=== PATIENT | female | born 1965 | race Caucasian/White ===

== ENCOUNTER 2024-02-11 22:51 | Emergency (ER) | payer OTHER, SELFPAY ==
[2024-02-11 22:54] VITALS: BP 156/71; PULSE 83; TEMP 36.6; O2SAT 93; BMI 22.3
--- NOTE | 2024-02-11 23:19 | ED.DENTAL1 ---
HPI - Dental/Oral General Chief complaint: Dental/Oral Stated complaint: Facial Swelling Time Seen by Provider: 02/11/24 22:52 Source: patient Mode of arrival: walk-in History of Present Illness HPI Narrative: 58-year-old female to the emergency department chief complaint of dental pain. Patient reports that she has teeth that are rotting out . Her meat cooler told her that to avoid having a heart attack she needs to be put under anesthesia for dental extractions. She is having hard time finding a dentist who can do this for her. She reports in the interim her teeth have worsened and she is now experiencing left-sided facial swelling associate with an increase in pain and believes she has an infection. Related Data Home Medications ?Medication ?Instructions ?Recorded ?Confirmed albuterol sulfate 2.5 mg/3 mL 2.5 mg continuous nebulization Q6H 02/11/24 02/11/24 (0.083 %) solution for nebulization PRN shortness of breath or wheezing albuterol sulfate 90 mcg/actuation inhalation 02/11/24 aerosol inhaler (Ventolin HFA) alendronate 70 mg tablet 70 mg PO .weekly 02/11/24 02/11/24 amlodipine 10 mg tablet 10 mg PO DAILY 02/11/24 02/11/24 atorvastatin 80 mg tablet 80 mg PO DAILY 02/11/24 02/11/24 azithromycin 250 mg tablet 250 mg PO DAILY 02/11/24 02/11/24 budesonide-formoterol HFA 160 2 inh inhalation Q12H 02/11/24 02/11/24 mcg-4.5 mcg/actuation aerosol inhaler clopidogrel 75 mg tablet 75 mg PO DAILY 02/11/24 02/11/24 famotidine 20 mg tablet 20 mg PO Q12H 02/11/24 02/11/24 gabapentin 100 mg capsule 100 mg PO DAILY 02/11/24 02/11/24 lisinopril 5 mg tablet 5 mg PO DAILY 02/11/24 02/11/24 metoprolol tartrate 25 mg tablet 12.5 mg PO Q12H 02/11/24 02/11/24 roflumilast 500 mcg tablet 500 mcg PO DAILY 02/11/24 02/11/24 spironolactone 25 mg tablet 25 mg PO Q12H 02/11/24 02/11/24 tiotropium bromide 2.5 2 inh inhalation Q24H 02/11/24 02/11/24 mcg/actuation mist for inhalation (Spiriva Respimat) Previous Rx's ?Medication ?Instructions ?Recorded penicillin V potassium 500 mg 500 mg PO QID 7 days #28 tabs 02/11/24 tablet Allergies Allergy/AdvReac Type Severity Reaction Status Date / Time hydrocodone [From Vicodin] Allergy Intermediate Vomiting Verified 02/11/24 23:01 cephalexin [From Keflex] Allergy Mild Vomiting Verified 02/11/24 23:01 sumatriptan [From Imitrex] Allergy Mild Hives Verified 02/11/24 23:01 acetaminophen AdvReac Intermediate Vomiting Verified 02/11/24 23:01 [From Darvocet-N] propoxyphene AdvReac Intermediate Vomiting Verified 02/11/24 23:01 [From Darvocet-N] Review of Systems ROS Status of ROS 10 or more systems reviewed and unremarkable except as noted in history and below [facility] Medical History (Updated 02/11/24 @ 23:16 by Anish Manning MD) Hypertension ?I10 - Essential (primary) hypertension (ICD-10) Heart attack ?I21.9 - Acute myocardial infarction, unspecified (ICD-10) Exam Narrative Exam Narrative: VITALS: I have reviewed the triage vital signs. GENERAL: Well developed, well appearing adult in no acute distress. NEURO: Alert and oriented. Moves all extremities. Face is symmetric and expressive. EYES: PERRL. No scleral icterus or conjunctival injection. No discharge. HENT: Normocephalic, atraumatic. Hearing is grossly intact. Nares grossly patent and without discharge. Mucous membranes moist. Grossly poor dentition. Some gingival erythema about the left incisors and premolars. No discrete abscess. Trace maxillary facial swelling. NECK: No JVD. Patient moves neck without restriction. EXTREMITIES: Symmetric muscle bulk. No joint swelling. No clubbing, cyanosis, or deformity. SKIN: Warm and dry. Normal turgor. No rash or lesions appreciated. PSYCH: Mood, affect, and interaction is appropriate to the setting. Constitutional Vital Signs, click to edit/add: Last Vital Signs Temp 97.9 F 02/11/24 22:54 Pulse 83 02/11/24 22:54 Resp 26 H 02/11/24 22:54 BP 156/71 H 02/11/24 22:54 Pulse Ox 93 L 02/11/24 22:54 O2 Del Method Room Air 02/11/24 22:54 Course Vital Signs Vital signs: Vital Signs Temperature 97.9 F 02/11/24 22:54 Pulse Rate 83 02/11/24 22:54 Respiratory Rate 26 H 02/11/24 22:54 Blood Pressure 156/71 H 02/11/24 22:54 Pulse Oximetry 93 L 02/11/24 22:54 Oxygen Delivery Method Room Air 02/11/24 22:54 Temperature 97.9 F 02/11/24 22:54 Pulse Rate 83 02/11/24 22:54 Respiratory Rate 26 H 02/11/24 22:54 Blood Pressure 156/71 H 02/11/24 22:54 Pulse Oximetry 93 L 02/11/24 22:54 Oxygen Delivery Method Room Air 02/11/24 22:54 MDM - Dental/Oral MDM Narrative Medical decision making narrative: 58-year-old female with poor dentition and suspected dental infection. Vital stable, the patient is afebrile. No evidence of deep space infection. She will be treated with clindamycin. Discussed risks of antibiotics and handout given. She has a list of some dentist whom she is going to call. She is going to use Tylenol and ibuprofen to manage discomfort at home. Return precautions were discussed. All questions were answered. The patient was discharged home. Discharge Plan Discharge Stand Alone Forms: Portal Instructions Chief Complaint: Dental/Oral Clinical Impression: Toothache, Dental abscess Patient Disposition: Home, Self-Care Time of Disposition Decision: 23:15 Condition: Good Mode of Transportation: Private Vehicle Prescriptions / Home Meds: New penicillin V potassium 500 mg tablet 500 mg PO QID 7 Days Qty: 28 0RF No Action albuterol sulfate 2.5 mg /3 mL (0.083 %) solution for nebulization 2.5 mg continuous nebulization Q6H PRN (Reason: shortness of breath or wheezing) albuterol sulfate [Ventolin HFA] 90 mcg/actuation HFA aerosol inhaler INHALATION alendronate 70 mg tablet 70 mg PO .weekly amlodipine 10 mg tablet 10 mg PO DAILY atorvastatin 80 mg tablet 80 mg PO DAILY azithromycin 250 mg tablet 250 mg PO DAILY budesonide-formoterol 160-4.5 mcg/actuation HFA aerosol inhaler 2 inh INHALATION Q12H clopidogrel 75 mg tablet 75 mg PO DAILY famotidine 20 mg tablet 20 mg PO Q12H gabapentin 100 mg capsule 100 mg PO DAILY lisinopril 5 mg tablet 5 mg PO DAILY metoprolol tartrate 25 mg tablet 12.5 mg PO Q12H roflumilast 500 mcg tablet 500 mcg PO DAILY spironolactone 25 mg tablet 25 mg PO Q12H Spiriva Respimat 2.5 mcg/actuation mist 2 inh INHALATION Q24H Print Language: Jamaican Instructions: Clindamycin (By mouth), Dental Abscess (ED), Toothache (ED) Additional Instructions: You need to follow-up with a dentist within the next 7 days Referrals: Maria Teresa Rojo PRINTER HELPER [Primary Care Provider] - 1 week
[2024-02-11] MEDS: PENICILLIN V POTASSIUM 250 MG TABLET 500 MG PO (23:22)
== END 2024-02-11 23:31 | disposition home or self-care (01) ==
PROVIDERS: Emergency Provider Student in an Organized Health Care Education/Training Program; PCP Nurse Practitioner Family
DX: K04.7 Periapical abscess without sinus (principal); K08.89 Other specified disorders of teeth and supporting structures
CPT/HCPCS: 99283

== ENCOUNTER 2024-02-27 22:01 | Emergency (ER) | payer OTHER, SELFPAY ==
[2024-02-27 22:09] VITALS: BP 164/85; PULSE 88; TEMP 36.8; O2SAT 99; BMI 21.5
--- OUTSIDE RECORDS SUMMARY | 2024-02-27 22:09 | XMS_ITS | CCD ---
Author Organization [facility] Care Team Providers Care Home Aid Name Role Phone UNKNOWN, PROVIDER Unavailable Unavailable [facility] Unavailable Unavailable UNKNOWN, PROVIDER Unavailable Unavailable [facility] Unavailable Unavailable Unavailable Unavailable Maria Teresa Chowdhury Unavailable Sg Barroso Unavailable Anderson Espion Unavailable [facility] Primary Care Provider [phone] DO Adal Paris Attending Provider MD Anderson Espino Attending Provider Jigar Klein Unavailable [facility] Primary Care Provider DO Adeline Carlton Attending Provider [phone] MD iKng Olea Referring Provider ELYSE Akins Emergency Provider [phone] DO Earnest Holder Emergency Provider [phone] King Olea II Attending Unavailable Ms. Maria Teresa Chowdhury [facility] Perkins Referring Unava Dr. King Bar Attending Unava Ms. Maria Teresa He Primary Care [facility] Primary Care Provider JODY Olvera Attending Provider JODY Rojo Primary Care Provider JODY Rojo Attending Pr ovider MD Sg Barroso Referring Provider Darrel FIRE PREVENTION OFFICER-BRYAN, Maria Teresa Omalley Primary Care Provider [facility], [facility] Primary Care Provider JODY Olvera Attending Provider JODY Rojo Primary Care Provider JODY Rojo Attending Pr ovider MD Sg Barroso Referring Provider TOMER Klein Attending Provider MD Anderson Espino Attending Provider Unavailable Primary Care Provider Unavailabl e Sg Barroso Referring Unavailable Maria Teresa Rojo Attending U wyattable Darrel, Maria Teresa Omalley Primary Care U navailable Darrel, Maria Teresa Omalley Admitting U navailable Rojo, Maria Teresa Omalley Admitting U navailable Darrel, Maria Teresa Omalley [facility]ending [facility] Maria Teresa Rojo Primary Care U [facility] Jigar Klein Admitting Unavailable Jigar Klein Attending Unavailable Maria Teresa Rojo [facility], [facility] Primary Care Unavailable Anderson Espino Admitting Unavailable Anderson Espino Attending Unavailable Anderson Espino Attending Unavailable Anderson Espino Admitting Unavailable Maria Teresa Rojo [facility] Glen Akins Attending Un[facility], [facility] Primary Care Unavailable Glen Akins Admitting Unavailable Earnest Holder Attending [facility]available [facility] Primary Care Unavailable Earnest Holder Admitting Unavailable [facility], [facility] Primary Care Unavailable Juan Banks Admitting Unavailable Juan Banks Attending Unavailable Maria Teresa Rojo Admitting U navailable Darrel, Maria Teresa Omalley Attending [facility] Maria Teresa Rojo Primary Care U [facility] King Olea Referring Unavail able [facility], [facility] Primary Care Unavailable Adeline Carlton Admitting Unavailable Adeline Carlton Attending Unavailable Alex Olvera Admitting Unavailable Alex Olvera Attending [facility]available [facility] Unavailable Maria Teresa Rojo PA-C Primary Care Provid er Maria Teresa Rojo PA-C Primary Care Provid er Maria Teresa Rojo MD Unavailable [phone] Unavailable Primary Care Provider Unavailreinier Rojo FIRE PREVENTION OFFICER-WORSHIP PASTORMaria Teresa Primary Care Pro vider DANYA NEWSOME Attending Unavailable MARIA TERESA ROJO Primary Care Unavailab KING Perkins Attending Unavailable DANYA NEWSOME Referring Unavailable MARIA TERESA ROJO Primary Care Unavailab ADELINE Nassar Attending Unavailable ADELINE CARLTON Attending Unavailable Allergies Allergy Classification Reported Allergen(s) Allergy Type Date of Onset Reaction(s) Facility (12 sources) Acetaminophen / HYDROcodone; Translations: [Vicodin TABS] Drug Allergy 3 Itching, Nausea/vomiting [facility] PaperG 250 DO Work Phone: (10 sources) Acetaminophen / Propoxyphene; Translations: [Darvocet A500] Drug Allergy Vomiting [facility] PaperG 250 DO Work Phone: (20 sources) Cephalexin; Translations: [Keflex] Drug Allergy 5 GI Upset, Unknown, GI intolerance, Hives, Itching [facility] (20 sources) SUMAtriptan; Translations: [Imitrex] Drug Allergy 5 Hives, Unknown [facility] Paper[facility] 250 DO Work Phone: (6 sources) Acetaminophen / HYDROcodone Drug Allergy Unknown [facility] maufait Other (7 sources) Doxycycline Drug Allergy 4 [facility] (6 sources) Darvocet-N 100 Drug allergy Unknown [facility] maufait Other (12 sources) Cephalexin; Translations: [cephalexin] Drug Allergy 2 [facility] (14 sources) HYDROcodone; Translations: [hydrocodone] Drug Allergy 2 Other [facility] (16 sources) Propoxyphene; Translations: [propoxyphene] Drug Allergy 5 Unknown, GI intolerance, Hives, Headache [facility] (12 sources) SUMAtriptan; Translations: [sumatriptan] Drug Allergy 2 [facility] (3 sources) Propoxyphene N-Acetaminophen; Translations: [PROPOXYPHENE N-ACETAMINOPHEN] Drug Allergy 3 Nausea/vomiting [facility] Work Phone: (6 sources) Acetaminophen / HYDROcodone; Translations: [HYDROCODONE-ACET AMINOPHEN] Drug Allergy 5 Unknown, Itching, GI intolerance [facility] (2 sources) Acetaminophen Drug Allergy 4 Unknown Reaction [facility] (1 source) Doxycycline Drug Allergy 4 [facility] Rep[facility] Medications Current Medications Medication Drug Class(es) Dates Sig (Normalized) Sig (Original) [id number] 200 actuat albuterol 0.09 mg/actuat metered dose inhaler (20 sources) beta2-Adrenergic Agonist Start: 06-29-2023 take 2 puff(s) by inhalation every four hours for wheezing albuterol HFA (Ventolin HFA) 90 mcg/act inhaler Indications: Chronic obstructive pulmonary disease, unspecified COPD type ([facility]/HCC) Inhale 2 puffs every 4 (four) hours if needed for shortness of breath or wheezing. 18 g 5 06/29/2023 Active Start: 02-24-2022 take 2.5 mg by inhal ation every six hours as needed albuterol 2.5 mg /3 mL (0.083 %) nebulizer solution Inhale 3 mL (2.5 mg) every 6 hours if needed for wheezing or shortness of breath. 02/24/2022 Active Start: 02-24-2022 Albuterol Sulf ate (2.5 MG/3ML) 0.083% Inhalation Nebulization Solution USE 1 VIAL EVERY 6 HOURS NEEDED Quantity: 375 Refills: 0 Ordered: 24-Feb-2022 DO Start : 24-Feb-2022 Active Start: 12-14-2021 take 2 puff(s) by in halation every four to six hours for wheezing albuterol (ProAir HFA) 90 mcg/actuation inhaler Inhale 2 puffs if needed for wheezing or shortness of breath. EVERY 4 TO 6 HOURS 12/14/2021 Active Start: 12-14-2021 take 2 puff(s) by mo uth every four to six hours as needed ProAir HFA 108 (90 Base) MCG/ACT AERS TAKE 2 PUFFS BY MOUTH EVERY 4 TO 6 HOURS NEEDED Quantity: 8 Refills: 0 Ordered: 14-Dec-2021 DO Start : 14-Dec-2021 Active Start: 02-11-2021 take 2.5 mg by inhal ation every four hours Albuterol Sulfate Active 2.5 MG INHALATION Every 4 hours February 11, 2021 12:00am Start: 01-27-2021 take 1 puff(s) by in halation every four hours as needed Albuterol Sulfate HFA 108 (90 Base) MCG/ACT 1 puff as needed Inhalation every 4 hrs Jan, Active Albuterol Sulfat e (2.5 MG/3ML) 0.083% 1 unit dose Inhalation four times a day DX J44.9 COPD Not-Taking take 1 puff(s) by in halation every four hours as needed Albuterol Sulfate HFA 108 (90 Base) MCG/ACT 1 puff as needed Inhalation every 4 hrs Active alendronic acid 70 mg oral tablet (20 sources) Bisphosphonate Start: 07-15-2021 take 70 mg by mouth every week Alendronate Active 70 MG PO every week July 15, 2021 1:00am Takes every Monday End: 10-05-2023 alendronate (Fosamax) 70 MG tablet Take 70 mg by mouth every 7 (seven) days. 0 10/05/2023 Discontinued (Other) take 1 tablet by saloni th once daily Alendronate Sodium 70 MG 1 tablet 30 minutes before the first food, beverage or medicine of the day with plain water Orally Active amLODIPine 10 mg oral tablet (20 sources) Dihydropyridine Calcium Channel Windy Start: 07-16-2021 End: 12-25-2024 take 1 tablet by mouth once daily amLODIPine (Norvasc) 10 mg tablet Indications: Essential hypertension Take 1 tablet (10 mg) by mouth once daily. FOR BLOOD PRESSURE. 90 tablet 3 12/26/2023 12/25/2024 Active Start: 02-11-2021 End: 10-05-2023 take 5 mg by mouth once daily Amlodipine Active 5 MG P O Daily July 16, 2021 1:00am atorvastatin 80 mg oral tablet (20 sources) HMG-CoA Reductase Inhibitor Start: 06-05-2017 End: 12-25-2024 take 1 tablet by mouth once daily at bedtime atorvastatin (Lipitor) 80 mg tablet Indications: Mixed hyperlipidemia Take 1 tablet (80 mg) by mouth once daily at bedtime. 90 tablet 3 12/26/2023 12/25/2024 Active azithromycin 250 mg oral tablet (8 sources) Macrolide Antimicrobial Start: 04-21-2023 take 1 tablet by mouth in the morning azithromycin (Zithromax) 250 MG tablet Indications: Chronic obstructive pulmonary disease, unspecified COPD type (CMS/HCC) Take 1 tablet (250 mg) by mouth in the morning. 30 tablet 5 04/21/2023 Active Azithromycin 250 MG as directed Orally once a day Active 60 actuat budesonide 0.16 mg/actuat / formoterol fumarate 0.0045 mg/actuat metered dose inhaler (20 sources) Corticosteroid, beta2-Adrenergic Agonist Start: 04-21-2023 End: 10-05-2023 budesonide-formoterol (Symbicort) 160-4.5 MCG/ACT inhaler Indications: Chronic obstructive pulmonary disease, unspecified COPD type (CMS/HCC) Inhale 2 puffs every 12 (twelve) hours 1 each 5 10/05/2023 Active Start: 12-17-2021 budesonide-for moteroL (Symbicort) 160-4.5 mcg/actuation inhaler Inhale. 12/17/2021 Active Start: 12-17-2021 budesonide-for moteroL (Symbicort) 160-4.5 mcg/actuation inhaler Inhale. 0 12/17/2021 Active Start: 12-17-2021 Symbicort 160- 4.5 MCG/ACT Inhalation Aerosol Quantity: 10 Refills: 0 Ordered: 17-Dec-2021 DO Start : 17-Dec-2021 Active Start: 02-11-2021 End: 07-15-2021 take 1 puff(s) by inhalation every twelve hours Budesonide-Formoterol (Symbicort) 160-4.5 mcg/actuation Hfa Aerosol Inhaler Discontinued 2 PUFF INHALATION Q12H February 11, 2021 12:00am July 15, 2021 2:14pm take 2 puff(s) by in halation twice daily Budesonide-Formoterol Fumarate 160-4.5 MCG/ACT 2 puffs Inhalation Twice a day Active calcium carbonate 1250 mg / cholecalciferol 600 unt oral tablet (5 sources) Vitamin D Start: 04-28-2023 Calcium 500 + D3 500-15 MG-MCG tablet cholecalciferol 0.05 mg oral capsule (6 sources) Vitamin D Start: 12-14-2021 take 1 capsule by mouth in the morning cholecalciferol (Vitamin D-3) 50 mcg (2,000 unit) capsule Take 1 capsule (50 mcg) by mouth early in the morning.. 12/14/2021 Active Start: 12-14-2021 take 1 capsule by mo uth in the morning cholecalciferol (Vitamin D-3) 50 mcg (2,000 unit) capsule Take 1 capsule (2,000 Units) by mouth early in the morning.. 0 12/14/2021 Active Start: 12-14-2021 take 1 capsule by mo uth once daily Vitamin D3 50 MCG (2000 UT) Oral Capsule TAKE 1 CAPSULE BY MOUTH EVERY DAY Quantity: 30 Refills: 0 Ordered: 14-Dec-2021 DO Start : 14-Dec-2021 Active clopidogrel 75 mg oral tablet (20 sources) P2Y12 Platelet Inhibitor Start: 06-05-2017 End: 12-25-2024 take 1 tablet by mouth once daily clopidogrel (Plavix) 75 mg tablet Indications: Atherosclerosis of rincon coronary artery of rincon heart without angina pectoris , Mixed hyperlipidemia Take 1 tablet (75 mg) by mouth once daily. 90 tablet 3 12/26/2023 12/25/2024 Active codeine phosphate 2 mg/ml / guaiFENesin 20 mg/ml oral solution (3 sources) Opioid Agonist Start: 10-05-2023 End: 10-10-2023 take 5 mL by mouth every six hours as needed for cough and chronic obstructive pulmonary disease and chronic obstructive pulmonary disease guaiFENesin-codeine (Robitussin-AC) 100-10 MG/5ML syrup Indications: Chronic obstructive pulmonary disease, unspecified COPD type (CMS/HCC) Take 5 mL by mouth every 6 (six) hours if needed for cough for up to 5 days 200 mL 0 10/05/2023 10/10/2023 Active esomeprazole 40 mg delayed release oral capsule (20 sources) Proton Pump Inhibitor Start: 08-11-2023 take 40 mg by mouth once daily Esomeprazole Magnesium Active 40 MG PO Daily August 11, 2023 1:00am Start: 07-15-2021 End: 08-11-2023 take 1 capsule by mouth once daily Esomeprazole Magnesium (Nexium) 20 mg Capsule,Delayed Release(Dr/Ec) Discontinued 20 MG PO Daily July 15, 2021 1:00am August 11, 2023 11:55am take 2 capsules by m outh once daily esomeprazole (NexIUM) [address] capsule Take 2 capsules (40 mg) by mouth once daily. Active esomeprazole (Ne xIUM) 40 MG injection Infuse 40 mg into a venous catheter in the morning. Infuse before meals. 0 Active famotidine 20 mg oral tablet (20 sources) Histamine-2 Receptor Antagonist Start: 10-25-2023 take 1 tablet by mouth once daily at bedtime Famotidine Active 20 MG PO Daily at bedtime October 25, 2023 1:00am Take 1 tablet orally at bedtime. Start: 09-20-2023 End: 10-05-2023 take 1 tablet by mouth in the morning famotidine (Pepcid) 20 MG tablet Take 20 mg by mouth in the morning. 0 09/20/2023 10/05/2023 Discontinued Start: 06-27-2023 End: 10-05-2023 famotidine (Pepcid) 40 MG ta blet Start: 02-11-2021 End: 07-15-2021 take 20 mg by mouth once daily Famotidine Discontinued 20 MG PO Daily February 11, 2021 12:00am July 15, 2021 2:15pm Start: 11-19-2020 End: 06-26-2023 take 1 tablet by mouth twice daily famotidine (Pepcid) 20 mg tablet Take 1 tablet (20 mg) by mouth 2 times a day. 0 08/25/2021 06/26/2023 Discontinued (Therapy completed) gabapentin 100 mg oral capsule (5 sources) Anti-epileptic Agent Start: 10-05-2023 End: 10-04-2024 take 100 mg by mouth once daily Gabapentin Active 100 MG PO Daily December 18, 2023 12:00am hydroCHLOROthiazide 12.5 mg oral tablet (5 sources) Thiazide Diuretic take 1 tablet by mouth in the morning hydroCHLOROthiazide (HYDRODiuril) 12.5 MG tablet Take 12.5 mg by mouth in the morning. 0 Active hyoscyamine sulfate 0.125 mg disintegrating oral tablet (6 sources) Start: 12-18-2023 take 0.125 mg by mouth three times daily Hyoscyamine Sulfate Active 0.125 MG PO Three times daily 90 December 18, 2023 12:00am hyoscyamine (Stella spaz,Levsin) 0.125 MG tablet every 4 (four) hours. 0 Active lisinopril 5 mg oral tablet (20 sources) Angiotensin Converting Enzyme Inhibitor Start: 12-26-2023 End: 12-25-2024 take 1 tablet by mouth once daily lisinopril 5 mg tablet Indications: Essential hypertension Take 1 tablet (5 mg) by mouth once daily. 90 tablet 3 12/26/2023 12/25/2024 Active Start: 10-26-2022 End: 10-24-2023 take 5 mg by mouth once daily Lisinopril Discontinued 5 MG PO Daily October 26, 2022 1:00am October 24, 2023 3:26pm Start: 07-15-2021 End: 07-16-2021 take 20 mg by mouth once daily Lisinopril Discontinued 20 MG PO Daily July 15, 2021 1:00am July 16, 2021 3:39pm Start: 07-24-2017 End: 12-26-2023 take 5 mg by mouth once daily Lisinopril Discontinued 5 MG PO Daily July 16, 2021 1:00am February 03, 2022 11:49am take 1 tablet by saloni th every twelve hours Lisinopril 20 MG 1 tablet Orally TWICE A DAY Active metoprolol tartrate 25 mg oral tablet (20 sources) beta-Adrenergic Windy Start: 12-26-2023 End: 12-25-2024 take 0.5 tablet by mouth twice daily metoprolol tartrate (Lopressor) 25 mg tablet Indications: Atherosclerosis of rincon coronary artery of rincon heart without angina pectoris , Essential hypertension Take 0.5 tablets (12.5 mg) by mouth 2 times a day. 90 tablet 3 12/26/2023 12/25/2024 Active Start: 06-05-2017 take 12.5 mg by mout h twice daily Metoprolol Tartrate Active 12.5 MG PO Twice daily June 05, 2017 12:00am take 1 tablet by saloni th every twelve hours metoprolol tartrate (Lopressor) 25 MG tablet Take 25 mg by mouth every 12 (twelve) hours. 0 Active pantoprazole 40 mg delayed release oral tablet (12 sources) Proton Pump Inhibitor Start: 12-21-2021 End: 10-05-2023 take 1 tablet by mouth once daily pantoprazole (ProtoNix) 40 mg EC tablet Take 1 tablet (40 mg) by mouth once daily. 12/21/2021 Active predniSONE 50 mg oral tablet (17 sources) Start: 02-26-2023 take 50 mg by mouth once daily Prednisone Active 50 MG PO Daily 5 February 26, 2023 12:00am Start: 02-03-2022 End: 10-26-2022 Prednisone Discontinued 10 M G PO Daily February 03, 2022 12:00am October 26, 2022 12:06pm starting 02/04/22 -4tab x3day, then 2tab x3day, then 1tab x3day, then discontinue roflumilast 0.5 mg oral tablet (13 sources) Phosphodiesterase 4 Inhibitor Start: 08-19-2022 End: 06-26-2023 take 1 tablet by mouth once daily Roflumilast (Daliresp) 500 MCG tablet Indications: Chronic obstructive pulmonary disease, unspecified COPD type (CMS/HCC) Take 500 mcg by mouth 1 (one) time each day at the same time. 30 tablet 5 04/21/2023 Active Start: 02-24-2022 End: 06-26-2023 take 1 tablet by mouth once daily roflumilast (Daliresp) 250 mcg tablet Take 1 tablet (250 mcg) by mouth once daily. FOR 30 DAYS 0 02/24/2022 06/26/2023 Discontinued (Duplicate order) take 1 tablet by saloni th every twenty-four hours Roflumilast 500 MCG 1 tablet Orally Once a day Not-Taking Spiriva Respimat 2.5 mcg/actuation (6 sources) Spiriva Respimat 2.5 mcg/actuation 2 puffs daily Active spironolactone 25 mg oral tablet (20 sources) Aldosterone Antagonist Start: 12-05-19 take 1 tablet by mouth in the morning spironolactone (Aldactone) 25 mg tablet Take 1 tablet (25 mg) by mouth early in the morning.. 12/04/2021 Active Start: 07-15-2021 End: 07-16-2021 take 25 mg by mouth twice daily Spironolactone Discontinued 25 MG PO Twice daily July 15, 2021 1:00am July 16, 2021 3:39pm take 2 tablets by mo uth every twenty-four hours Spironolactone 25 MG 2 ml Orally Once a day for 90 day(s) Active 60 actuat tiotropium 0.0025 mg/actuat inhalation spray (20 sources) Anticholinergic Start: 12-18-2023 take 2 puff(s) by inhalation once daily Tiotropium Rawlings Active INHALATION December 18, 2023 12:00am FreeTextSi puffs daily; Note: Source Status: Taking; Provider: Latoya Kimball ( ) Start: 04-21-2023 End: 10-05-2023 take 2 puff(s) by inhalation once daily tiotropium (Spiriva Respimat) 2.5 MCG/ACT inhaler Indications: Chronic obstructive pulmonary disease, unspecified COPD type ([facility]/HCC) Inhale 2 puffs 1 (one) time each day at the same time 1 each 5 10/05/2023 Active Start: 10-22-2021 End: 06-26-2023 take 2 puff(s) by inhalation once daily tiotropium (Spiriva Respimat) 2.5 mcg/actuation inhaler Inhale 2 puffs once daily. FOR 30 DAYS 0 10/22/2021 06/26/2023 Discontinued (Therapy completed) Start: 10-22-2021 take 2 puff(s) by in halation once daily Spiriva Respimat 2.5 MCG/ACT Inhalation Aerosol Solution INHALE 2 PUFFS INTO THE LUNGS EVERY DAY FOR 30 DAYS Quantity: 4 Refills: 0 Ordered: 24-Dec-2021 DO Start : 22-Oct-2021 Active Start: 02-11-2021 take 1 capsule by in halation once daily tiotropium (Spiriva with HandiHaler) [address] 1 capsule (18 mcg) into inhaler and inhale once daily. USING 2 INHALATIONS VIA HANDIHALER 08/24/2021 Active Tiotropium Rawlings (Spiriva With Handihaler) 18 mcg capsule, w/inhalation device (3 sources) Start: 02-11-2021 take 1 capsule by inhalation once daily in the morning Tiotropium Rawlings (Spiriva With Handihaler) 18 mcg capsule, w/inhalation device Active 1 CAP INHALATION Every morning February 11, 2021 12:00am Start: 02-11-2021 take 1 capsule by in halation once daily in the morning Tiotropium Rawlings (Spiriva With Handihaler) 18 mcg capsule, w/inhalation device Active 1 CAP INHALATION Every morning February 10, 2021 11:00pm Completed/Discontinued Medications Medication Drug Class(es) Dates Sig (Normalized) Sig (Original) acetaminophen 500 mg oral tablet (20 sources) Start: 09-25-2018 End: 02-11-2021 take 500 mg by mouth every six hours Acetaminophen Discontinued 500 MG PO Q6H September 25, 2018 1:00am February 11, 2021 9:01pm Start: 07-24-2017 End: 01-16-2018 Acetaminophen (Tylenol) 325 mg Tablet Discontinued 325 TAB PO As Directed July 24, 2017 1:00am January 16, 2018 8:11pm acetaminophen 300 mg / codeine phosphate 15 mg oral tablet (20 sources) Opioid Agonist Start: 09-15-2017 End: 09-20-2017 take 1 tablet by mouth every six hours Acetaminophen-Codeine Discontinued 1 TAB PO Q6H 14 01September 15, 2017 1:00am September 20, 2017 1:03am Start: 06-05-2017 End: 07-08-2017 take 1 tablet by mouth every four to six hours Acetaminophen-Codeine (Tylenol-Codeine #3) 300-30 mg tablet Discontinued 1 TAB PO EVERY 4-6 HOURS June 05, 2017 12:00am July 08, 2017 10:55pm acetaminophen 325 mg / oxyCODONE hydrochloride 5 mg oral tablet (20 sources) Opioid Agonist Start: 09-17-2017 End: 01-16-2018 take 1 tablet by mouth every four to six hours Oxycodone-Acetaminophen (Percocet) 5-325 mg tablet Discontinued 1 TAB PO EVERY 4-6 HOURS November 23, 2017 January 16, 2018 8:11pm aspirin 81 mg delayed release oral tablet (20 sources) Platelet Aggregation Inhibitor, Nonsteroidal Anti-inflammator y Drug Start: 06-05-2017 End: 12-26-2023 take 81 mg by mouth once daily Aspirin Discontinued 81 MG PO Daily July 15, 2021 1:00am August 11, 2023 11:22am ASPIRIN 81 MG ch ewable tablet Chew 81 mg 1 (one) time each day at the same time. 0 Active atenolol 25 mg oral tablet (4 sources) beta-Adrenergic Windy End: 10-05-2023 take 1 tablet by mouth in the morning atenolol (Tenormin) 25 MG tablet Take 25 mg by mouth in the morning. 0 10/05/2023 Discontinued (Other) benzonatate 100 mg oral capsule (12 sources) Non-narcotic Antitussive Start: 07-15-2021 End: 10-26-2022 take 100 mg by mouth three times daily Benzonatate Discontinued 100 MG PO Three times daily July 15, 2021 1:00am October 26, 2022 12:05pm 12 hr buPROPion hydrochloride 150 mg extended release oral tablet (4 sources) Aminoketone Start: 09-04-2022 End: 10-05-2023 buPROPion SR (Wellbutrin SR) 150 MG 12 hr tablet TAKE 1 TABLET BY ONCE DAILY FOR 5 DAYS THEN INCREASE TO TWICE DAILY, QUIT SMOKING DAY 10 0 09/04/2022 10/05/2023 Discontinued (Other) Calcium 500/Vitamin D 500-3.125 MG-MCG (2 sources) take 1 tablet by mouth twice daily Calcium 500/Vitamin D 500-3.125 MG-MCG 1 tablet with a meal Orally TWICE A DAY Not-Taking take 1 tablet by mouth twice denisa ly Calcium 500/Vitamin D 500-3.125 MG-MCG 1 tablet with a meal Orally TWICE A DAY Active clindamycin 150 mg oral capsule (2 sources) Lincosamide Antibacterial take 1 capsule by mouth every eight hours Clindamycin HCl 150 MG 1 capsule Orally every 8 hrs Not-Taking dicyclomine hydrochloride 20 mg oral tablet (4 sources) Anticholinergic Start: 10-24-19 End: 12-18-19 take 1 tablet by mouth twice daily Dicyclomine Discontinued MG PO October 24, 2023 1:00am December 18, 2023 1:44pm FreeTextSi tablet Orally Twice a times a day; Note: Source Status: Start; Refills: 5; Provider: Latoya Crocker Start: 09-20-2023 dicyclomine (B entyl) 20 MG tablet Take 20 mg by mouth in the morning and 20 mg at noon and 20 mg in the evening and 20 mg before bedtime. Take before meals. 0 09/20/2023 Active doxycycline hyclate 100 mg oral capsule (17 sources) Tetracycline-class Drug Start: 02-26-2023 End: 08-11-2023 take 100 mg by mouth twice daily Doxycycline Hyclate Discontinued 100 MG PO Twice daily 14 February 26, 2023 12:00am August 11, 2023 11:23am Start: 02-03-2022 End: 10-26-2022 take 100 mg by mouth twice daily Doxycycline Hyclate Discontinued 100 MG PO Twice daily February 03, 2022 12:00am October 26, 2022 12:05pm guaiFENesin 600 mg oral tablet (20 sources) Start: 07-16-2021 End: 02-03-2022 take 600 mg by mouth twice daily Guaifenesin Discontinued 600 MG PO Twice daily July 16, 2021 1:00am February 03, 2022 11:48am Start: 07-15-2021 End: 12-18-2023 take 1 tablet by mouth twice daily, then take 1 tablet by mouth every twelve hours Guaifenesin (Mucinex) 1,200 mg Tablet Extended Release 12hr Discontinued 1200 MG PO Twice daily July 15, 2021 1:00am December 18, 2023 1:45pm End: 10-05-2023 guaiFENesin (Mucinex) 600 MG 12 hr tablet Take 600 mg by mouth every 12 (twelve) hours. 0 10/05/2023 Discontinued (Other) take 2 tablets by mo [facility] every twelve hours Mucinex 600 MG 2 TABLETS Orally every 12 hrs Not-Taking take 1 tablet by saloni every twelve hours Mucinex 600 MG 1 tablet as needed Orally every 12 hrs Active lovastatin 20 mg oral tablet (4 sources) HMG-CoA Reductase Inhibitor End: 10-05-2023 take 1 tablet by mouth at bedtime lovastatin (Mevacor) 20 MG tablet Take 20 mg by mouth at bedtime. 0 10/05/2023 Discontinued (Other) magnesium oxide 400 mg oral tablet (14 sources) Start: 10-26-2022 End: 10-05-2023 take 400 mg by mouth once daily Magnesium Oxide Discontinued 400 MG PO Daily October 26, 2022 1:00am August 11, 2023 11:22am take 1 tablet by [facility] once daily at mealtime Magnesium Oxide 400 (240 Mg) MG TAKE 1 TABLET BY MOUTH ONCE DAILY WITH FOOD for 30 Not-Taking MagOx 400 400 (241.3 Mg) MG (2 sources) Start: 09-15-2022 take 1 tablet by mouth once daily at mealtime MagOx 400 400 (241.3 Mg) MG 1 tablet with food Orally Once a day for 30 day(s) Aug, Not-Taking Start: 09-15-2022 take 1 tablet by [facility] once daily at mealtime MagOx 400 400 (241.3 Mg) MG 1 tablet with food Orally Once a day for 30 day(s) Aug, Active montelukast 10 mg oral tablet (20 sources) Leukotriene Receptor Antagonist Start: 02-11-2021 End: 12-26-2023 take 1 tablet by mouth once daily in the evening montelukast (Singulair) 10 mg tablet Take 1 tablet (10 mg) by mouth once daily in the evening. 09/03/2021 12/26/2023 Discontinued (Therapy completed) Nitro Sublingual 0.4 0.4mg (6 sources) Nitro Sublingual 0.4 0.4mg 1 Sublingual Every 5min x3 Not-Taking Nitro Sublingual 0.4 0.4mg 1 Sublingual Every 5min x3 Active nitroglycerin 0.4 mg sublingual tablet (6 sources) Nitrate Vasodilator End: 12-26-2023 nitroglycerin (Nitrostat) 0.[address] 1 tablet (0.4 mg) under the tongue every 5 minutes if needed for chest pain. 12/26/2023 Discontinued () omeprazole 40 mg delayed release oral capsule (14 sources) Proton Pump Inhibitor Start: 05-18-2023 End: 10-05-2023 omeprazole (PriLOSEC) [address] capsule Start: 07-25-2017 End: 01-16-2018 Omeprazole Magnesium (Prilos ec Otc) 20 mg Tablet,Delayed Release (Dr/Ec) Discontinued 40 MG PO Daily July 25, 2017 1:00am January 16, 2018 8:11pm ondansetron 4 mg disintegrating oral tablet (15 sources) Serotonin-3 Receptor Antagonist Start: 09-17-2017 End: 01-16-2018 take 4 mg by mouth every eight hours Ondansetron Discontinued 4 MG PO Q8H September 17, 2017 1:00am January 16, 2018 8:11pm ondansetron (Zof ran) 8 MG tablet 1 tablet 0 Active potassium chloride 20 meq extended release oral tablet (20 sources) Start: 09-15-2022 take 1 tablet by saloni th every twenty-four hours Potassium Chloride ER 20 MEQ 1 tablet with food Orally Once a day for 30 day(s) Aug, Not-Taking Start: 08-05-2022 End: 10-05-2023 potassium chloride ER (Micro -K) 10 MEQ ER capsule TAKE 2 CAPSULES BY MOUTH EVERY DAY WITH FOOD 0 08/05/2022 10/05/2023 Discontinued (Other) Start: 06-30-2020 End: 02-03-2022 take 10 mEq by mouth once daily Potassium Chloride Discontinued 10 MEQ PO Daily July 15, 2021 1:00am February 03, 2022 11:49am promethazine hydrochloride 25 mg oral tablet (10 sources) Phenothiazine Start: 09-15-2017 End: 09-18-2017 take 25 mg by mouth every six hours Promethazine Discontinued 25 MG PO Q6H 12 September 15, 2017 1:00am September 18, 2017 1:03am raNITIdine 150 mg oral tablet (14 sources) Histamine-2 Receptor Antagonist Start: 06-05-2017 End: 10-05-2023 take 150 mg by mouth once daily at bedtime Ranitidine Hcl Discontinued 150 MG PO Daily at bedtime June 05, 2017 12:00am July 15, 2021 2:14pm Start: 06-05-2017 End: 07-15-2021 take 150 mg by mouth once daily at bedtime Ranitidine Hcl Discontinued 150 MG PO Daily at bedtime June 04, 2017 11:00pm July 15, 2021 1:14pm sodium bicarbonate 650 mg oral tablet (12 sources) Start: 01-31-2022 End: 10-26-2022 take 1300 mg by mouth three times daily Sodium Bicarbonate Discontinued 1300 MG PO Three times daily 180 January 31, 2022 12:00am October 26, 2022 12:06pm take 1 tablet by saloni th every twelve hours Sodium Bicarbonate 650 MG 1 tab(s) Orall y bid Active Tylenol Extra Strength 500 MG (6 sources) take 1 tablet by saloni th every six hours as needed Tylenol Extra Strength 500 MG 1 tablet as needed Orally every 6 hrs Not-Taking take 1 tablet by saloni th every six hours as needed Tylenol Extra Strength 500 MG 1 tablet a s needed Orally every 6 hrs Active vitamin b12 1 mg oral tablet (14 sources) Vitamin B12 Start: 02-03-2022 End: 10-26-2022 take 1000 ug by mouth once daily in the morning Cyanocobalamin (Vitamin B-12) Discontinued 1000 MCG PO Every morning 3 February 03, 2022 12:00am October 26, 2022 12:05pm take 1 tablet by mouth once janak y Cyanocobalamin 1000 MCG 1 tablet Orally Once a day Not-Taking take 1 tablet by mouth once janak y Cyanocobalamin 1000 MCG 1 tablet Orally Once a day Active Problems Active Problems Problem Classification Problem Date Documented Da te Episodic/Chronic Abdominal pain (20 sources) Epigastric pain; Translations: [Epigastric pain] Onset: 3 Resolved: 4 07-14-2021 Episodic Acute and unspecified renal failure (20 sources) Acute renal failure syndrome; Translations: [Acute kidney failure, unspecified] Onset: 4 Resolved: 4 07-15-2021 Episodic Asthma (17 sources) Asthma; Translations: [Asthma, unspecified type, unspecified] Onset: 3 Resolved: 3 06-24-2023 Chronic Chronic kidney disease (3 sources) Chronic kidney disease stage 3A ; Translations: [Chronic kidney disease, stage 3a] Chronic Chronic obstructive pulmonary disease and bronchiectasis (20 sources) Chronic obstructive lung disease; Translations: [Chronic airway obstruction, not elsewhere classified] Onset: 2 Resolved: 2 Chronic Coronary atherosclerosis and other heart disease (20 sources) Coronary atherosclerosis; Translations: [Coronary atherosclerosis of rincon coronary artery] Onset: 3 Resolved: 3 06-26-2023 Chronic Coronary atherosclerosis and other heart disease (2 sources) Coronary angioplasty status; Translations: [Coronary angioplasty status] Onset: 3 Episodic Coronary atherosclerosis and other heart disease (1 source) Coronary atherosclerosis and other heart disease Onset: 7 Deficiency and other anemia (20 sources) Pancytopenia; Translations: [Other pancytopenia] Onset: 4 Resolved: 4 07-14-2021 Chronic Deficiency and other anemia (13 sources) Anemia; Translations: [Anemia, unspecified] Onset: 4 Resolved: 4 07-14-2021 Episodic Disorders of lipid metabolism (20 sources) Hyperlipidemia; Translations: [Other and unspecified hyperlipidemia] Onset: 3 Resolved: 3 06-26-2023 Chronic Esophageal disorders (10 sources) Gastroesophageal reflux disease; Translations: [Gastro-esophageal reflux disease without esophagitis] Onset: 2 Resolved: 2 Chronic Essential hypertension (20 sources) Essential (primary) hypertension; Translations: [Essential hypertension] Onset: 7 Resolved: 3 06-26-2023 Chronic Essential hypertension (2 sources) Essential hypertension Onset: 7 Fluid and electrolyte disorders (20 sources) Hypokalemia; Translations: [Acidosis] Onset: 2 Resolved: 4 Episodic Fracture of lower limb (13 sources) Closed fracture of phalanx of foot; Translations: [Unspecified fracture of unspecified toe(s), initial encounter for closed fracture] Onset: 4 Resolved: 4 06-05-2017 Episodic Hypertension with complications and secondary hypertension (20 sources) Malignant hypertensive chronic kidney disease; Translations: [Hypertensive chronic kidney disease with stage 1 through stage 4 chronic kidney disease, or unspecified chronic kidney disease] Onset: 2 Resolved: 4 Chronic Nutritional deficiencies (13 sources) Cobalamin deficiency; Translations: [Deficiency of other specified B group vitamins] Onset: 4 Resolved: 4 02-03-2022 Episodic Occlusion or stenosis of precerebral arteries (17 sources) Bilateral stenosis of carotid arteries; Translations: [Occlusion and stenosis of carotid artery without mention of cerebral infarction] Onset: 3 Resolved: 3 06-24-2023 Chronic Other circulatory disease (8 sources) Cardiac function test normal; Translations: [Normal cardiac ejection fraction] Episodic Other fractures (13 sources) Fracture of rib; Translations: [Fracture of one rib, unspecified side, initial encounter for closed fracture] Onset: 4 Resolved: 4 09-17-2017 Episodic Other gastrointestinal disorders (1 source) Irritable bowel syndrome with diarrhea; Translations: [Irritable bowel syndrome with diarrhea] 12-18-2023 Chronic Other gastrointestinal disorders (1 source) Irritable bowel syndrome with diarrhea; Translations: [Irritable bowel syndrome] 12-18-2023 Chronic Other gastrointestinal disorders (2 sources) Dysphagia; Translations: [Dysphagia, unspecified] 12-21-2023 Episodic Other gastrointestinal disorders (2 sources) Dysphagia, unspecified; Translations: [Dysphagia, unspecified] Onset: 3 Episodic Other gastrointestinal disorders (2 sources) Diarrhea, unspecified; Translations: [Diarrhea] Onset: 3 10-24-2023 Episodic Other gastrointestinal disorders (1 source) Diarrhea; Translations: [Diarrhea, unspecified] 10-24-2023 Episodic Other lower respiratory disease (10 sources) Snoring; Translations: [Other respiratory abnormalities] Episodic Other screening for suspected conditions (not mental disorders or infectious disease) (13 sources) Serum TSH level abnormal; Translations: [Other specified abnormal findings of blood chemistry] Onset: 4 Resolved: 4 02-03-2022 Episodic Peripheral and visceral atherosclerosis (20 sources) Peripheral vascular disease; Translations: [Peripheral vascular disease, unspecified] Onset: 2 Resolved: 3 Chronic Residual codes; unclassified (17 sources) Hypersomnia; Translations: [Hypersomnia, unspecified] Onset: 3 Resolved: 3 06-24-2023 Chronic Residual codes; unclassified (17 sources) Body mass index 20-24 - normal; Translations: [Body Mass Index between 19-24, adult] Onset: 3 06-26-2023 Episodic Residual codes; unclassified (1 source) Asymptomatic menopausal state; Translations: [Asymptomatic menopausal state] Onset: 3 Episodic Residual codes; unclassified (2 sources) Body mass index (BMI) 21.0-21.9, adult; Translations: [Body mass index (BMI) 21.0-21.9, adult] Onset: 3 Episodic Spondylosis; intervertebral disc disorders; other back problems (10 sources) Thoracic back pain; Translations: [Pain in thoracic spine] 09-14-2020 Episodic Sprains and strains (20 sources) Strain of knee; Translations: [Strain of unspecified muscle(s) and tendon(s) at lower leg level, left leg, initial encounter] Onset: 4 Resolved: 4 07-08-2017 Episodic Substance-related disorders (20 sources) Smoker; Translations: [Tobacco use disorder] Onset: 2 Resolved: 2 Chronic Comment on above: 1 pack per daily; Superficial injury; contusion (20 sources) Contusion of coccyx; Translations: [Contusion of lower back and pelvis, initial encounter] Onset: 4 Resolved: 4 09-15-2017 Episodic Unclassified (1 source) Personal history of nicotine dependence / Z87.891(ICD-9) Onset: 7 Unclassified (1 source) Unsp athscl rincon arteries of extremities, right leg / I70.201(ICD-9) Onset: 7 Unclassified (1 source) Athscl heart disease of rincon coronary artery w/o ang pctrs / I25.10(ICD-9) Onset: 7 Unclassified (2 sources) Occlusion and stenosis of bilateral carotid arteries / I65.23(ICD-9) Onset: 7 Unclassified (1 source) Pain in right leg / M79.604(ICD-9) Onset: 7 Unclassified (1 source) Old myocardial infarction / I25.2(ICD-9) Onset: 7 Unclassified (2 sources) Other fatigue / R53.83(ICD-9) Onset: 7 Unclassified (1 source) Coronary angioplasty status / Z98.61(ICD-9) Onset: 7 Unclassified (1 source) Pain in left leg / M79.605(ICD-9) Onset: 7 Unclassified (1 source) Contusion of left upper arm, initial encounter; Translations: [Contusion of left upper arm, initial encounter] Onset: 3 Unclassified (1 source) Encounter for screening for malignant neoplasm of colon; Translations: [Encounter for screening for malignant neoplasm of colon] Onset: 3 Past or Other Problems Problem Classification Problem Date Documented Date Episodic/Chronic Biliary tract disease (1 source) Other specified diseases of gallbladder; Translations: [Other specified diseases of gallbladder] Onset: 06-22-2023 Episodic Chronic kidney disease (6 sources) Chronic kidney disease; Translations: [Chronic kidney disease, stage 3a] Onset: 11-04-2021 Resolved: 02-17-2022 Malaise and fatigue (1 source) Other fatigue; Translations: [Other fatigue] Onset: 06-20-2017 Episodic Nausea and vomiting (2 sources) Nausea with vomiting, unspecified; Translations: [Nausea with vomiting, unspecified] Onset: 06-22-2023 Episodic Nonspecific chest pain (20 sources) Chest wall pain; Translations: [Other chest pain] Onset: 03-06-2023 Resolved: 06-29-2023 11-23-2017 Episodic Other acquired deformities (5 sources) Acquired deformity of head; Translations: [Other acquired deformity of head] Onset: 06-29-2023 Resolved: 06-29-2023 06-29-2023 Episodic Other circulatory disease (5 sources) History of insertion of iliac stent; Translations: [Presence of other vascular implants and grafts] Onset: 06-29-2023 Resolved: 06-29-2023 06-29-2023 Chronic Other circulatory disease (17 sources) Carotid bruit; Translations: [Other symptoms involving cardiovascular system] Onset: 06-24-2023 Resolved: 06-29-2023 06-24-2023 Episodic Other endocrine disorders (12 sources) Aldosterone deficiency; Translations: [Mineralocorticoid deficiency] Onset: 06-24-2023 Resolved: 06-26-2023 06-26-2023 Chronic Other lower respiratory disease (1 source) Shortness of breath; Translations: [Shortness of breath] Onset: 02-26-2023 Episodic Other nutritional; endocrine; and metabolic disorders (5 sources) H/O: endocrine disorder; Translations: [Personal history of other endocrine, nutritional and metabolic disease] Onset: 06-29-2023 Resolved: 06-29-2023 06-29-2023 Episodic Other skin disorders (5 sources) Seborrheic keratosis; Translations: [Other seborrheic keratosis] Onset: 06-06-2022 Resolved: 06-29-2023 06-29-2023 Episodic Unclassified (1 source) Occlusion and stenosis of bilateral carotid arteries; Translations: [Occlusion and stenosis of bilateral carotid arteries] Onset: 06-20-2017 Results Test Name Value Interpretation Reference Range Facility [place] hepat[facility]iliary w pharmon 1 10-02-2022 [place] [address] Nuclear Medicine Report Signed Patient: Stephani Fermin MR#: [id number] 07 : 1965 Acct:[id number] Age/Sex: 57 / F ADM Date: 08/01/23 Loc: [place] Room: Type: [facility] Attending Dr: Jigar Klein FIRE PREVENTION OFFICER Copies to: Arnaud Jose Jr, DO Jigar Klein APRN Ordering Provider: Jigar Klein APRN Date of Service: 08/01/23 [place] hepatobiliary w pharm: R10.9,R19.7,K82.8 HIDA SCAN WITH CCK CLINICAL HISTORY: Abdominal pain for 2 years with 20 pound weight loss COMPARISON: Gallbladder ultrasound 05/15/2023 TECHNIQUE:Following the intravenous administration of 6 mCi of technetium 99m labeled Mebrofenin, anterior imaging of the abdomen was performed out to 60 minutes.The patient was subsequently infused with 1 mcg of CCK and imaging was performed an additional 30 minutes. FINDINGS: There is uniform distribution of radionuclide within the liver. Normal gallbladder activity is seen within the first 60 minutes. The gallbladder ejection fraction is 72%. Normal is greater than 40%. NM/NM hepatobiliary w pharm IMPRESSION: Normal HIDA scan. Impression dictated by: Arnaud Jose Jr., D.OVidya08/01/2023 12:56 PM Dictation Location: RADIO--08 Transcribed By: [facility] 08/01/23 1256 Dictated By: Arnaud Jose Jr, DO 08/01/23 1256 Signed By: 08/01/23 1256 Normal [facility] upper GI w air*on 023 [place] upper GI w air* [facility] [place] [address] Fluoroscopy Report Signed Patient: Stephani Fermin MR#: [id number] 07 : 1965 Acct:[id number] Age/Sex: 57 / F ADM Date: 07/03/23 Loc: XD Room: Type: [facility] Attending Dr: Maria Teresa Rojo CAFETERIA TABLE ATTENDANT-C Copies to: Maria Teresa Rojo Ordering Provider: Maria Teresa Rojo Date of Service: 07/03/23 FL/FL upper GI w air*: Nausea and vomiting, unspecified vomiting type;Diarrhea, uns UPPER GI SERIES HISTORY: Diarrhea for one year. Vomiting. Weight loss. 52 imagesCumulative Air Kerma in mGy: 144.77 mGy FINDINGS: The valleculae and pyriform sinuses are symmetrical. The esophagus has a normal course. There is mild narrowing of the esophagus distally near the gastric esophageal junction. No gross mucosal abnormality identified.Potential tiny hiatal hernia seen. No reflux of contrast into the esophagus. No aspiration of contrast seen. Marked gastric wall thickening present. Consider gastritis or infiltrative change. No gastric ulcer. The duodenal sweep are unremarkable. There is a persistent filling defect identified in the duodenal bulb near the pylorus. Measures up to 13 mm. This may represent benign finding.Extensive stasis of contrast seen. Extensive fatty presbyesophagus identified. FL/FL upper GI w air* IMPRESSION: No gaseous esophageal reflux. No esophagitis. Marked presbyesophagus with stasis of contrast. Mild narrowing of the distal esophagus. No esophageal mucosal abnormality. Diffuse gastric wall thickening. Consider gastritis or infiltrative change. Small filling defect identified within the duodenal bulb near the pylorus. This is well-defined. This may represent benign finding. No obstruction identified. Impression dictated by: Mekhi Savage M.D.07/03/2023 12:01 PM Dictation Location: [place] [address] Transcribed By: [facility] 07/03/23 1201 Dictated By: Mekhi Savage DO 07/03/23 1148 Signed By: 07/03/23 1201 Normal [facility] Alanine aminotransferase [En zymatic activity/volume] in Serum or PlasmaOrdered By: Maria Teresa Rojo on 06-22-2023 ALT [Catalytic activity/Vol] 9 U/L 7-52 [facility] Albumin [Mass/volume] in Ser um or Plasma by Bromocresol green (BCG) dye binding methoOrdered By: Maria Teresa Rojo on 06-22-2023 Albumin BCG dye [Mass/Vol] 3.9 g/dL 3.5-5.7 [facility] Alkaline phosphatase [Enzyma tic activity/volume] in Serum or PlasmaOrdered By: Maria Teresa Rojo on 06-22-2023 ALP [Catalytic activity/Vol] 56 U/L 34-104 [facility] Amylaseon 06-22-2023 Amylase [Catalytic activity/Vol] 40 U/L Normal 29-103 [facility] Comment on above: Order Comment: Reaso n for Exam Nausea and vomiting, unspecified vomiting type;Diarrhea, uns Performed By: #### A MY, OB(GUAIAC), CUSTOOL, CDT, LACTO SWBC, CMP, LIPASE ####[facility] [id number]#### OPEXAM, ELASTASE STOOL ####[facility] , Amylase [Enzymatic activity/ volume] in Serum or PlasmaOrdered By: Maria Teresa Rojo on 06-22-2023 Amylase [Catalytic activity/Vol] 40 U/L 29-103 [facility] Aspartate aminotransferase [ Enzymatic activity/volume] in Serum or PlasmaOrdered By: Maria Teresa Rojo on 06-22-2023 AST [Catalytic activity/Vol] 11 U/L 13-39 [facility] Bilirubin.total [Mass/volume ] in Serum or PlasmaOrdered By: Maria Teresa Rojo on 06-22-2023 Bilirubin [Mass/Vol] 0.3 mg/dL 0.3-1.0 [facility] Calcium [Mass/volume] in Ser um or PlasmaOrdered By: Maria Teresa Rojo on 06-22-2023 Calcium [Mass/Vol] 9.6 mg/dL 8.6-10.3 [facility] Carbon dioxide, total [Moles /volume] in Serum or PlasmaOrdered By: Maria Teresa Rojo on 06-22-2023 CO2 [Moles/Vol] 20.5 mmol/L 21.0-31.0 [facility] Chloride [Moles/volume] in S franklin or PlasmaOrdered By: Maria Teresa Rojo on 06-22-2023 Chloride [Moles/Vol] 110 mmol/L 98-107 [facility] Clostridioides difficile tox in B tcdB gene [Presence] in Stool by SHERYL with probe deteOrdered By: Maria Teresa Rojo on 06-22-2023 C. difficile toxin B tcdB gene SHERYL+probe Ql (Stl) Negative Negative [facility] Comment on above: Testing performed by RT-PCR Clostridium Difficileon 05-29 Clostridium Difficile Negative Normal Negative [facility] Comment on above: Order Comment: Reaso n for Exam Nausea and vomiting, unspecified vomiting type;Diarrhea, uns Result Comment: Test ing performed by RT-PCR PERFORMED BY: [facility] [address] [place] [address] PATHOLOGIST [employer]SULTANT OSCAR SOTO M.D. Performed By: #### A MY, OB(GUAIAC), CUSTOOL, CDT, LACTO SWBC, CMP, LIPASE ####[facility] [id number]#### OPEXAM, ELASTASE STOOL ####[facility] , Comprehensive Metabolic Pane lexy 06-22-2023 Albumin [Mass/Vol] 3.9 g/dL Normal 3.5-5.7 [facility] Comment on above: Order Comment: Reaso n for Exam Nausea and vomiting, unspecified vomiting type;Diarrhea, uns Performed By: #### A MY, OB(GUAIAC), CUSTOOL, CDT, LACTO SWBC, CMP, LIPASE ####[address] [place] [address] [place]#### OPEXAM, ELASTASE STOOL ####[facility] , Albumin/Globulin [Mass ratio] 1.7 {ratio} Normal [facility] Comment on above: Order Comment: Reaso n for Exam Nausea and vomiting, unspecified vomiting type;Diarrhea, uns Performed By: #### A MY, OB(GUAIAC), CUSTOOL, CDT, LACTO SWBC, CMP, LIPASE ####[address]#### OPEXAM, ELASTASE STOOL ####[facility] , ALP [Catalytic activity/Vol] 56 U/L Normal 34-104 [facility] Comment on above: Order Comment: Reaso n for Exam Nausea and vomiting, unspecified vomiting type;Diarrhea, uns Performed By: #### A MY, OB(GUAIAC), CUSTOOL, CDT, LACTO SWBC, CMP, LIPASE ####[place] [address] [place]#### OPEXAM, ELASTASE STOOL ####[facility] , ALT [Catalytic activity/Vol] 9 U/L Normal 7-52 [facility] Comment on above: Order Comment: Reaso n for Exam Nausea and vomiting, unspecified vomiting type;Diarrhea, uns Performed By: #### A MY, OB(GUAIAC), CUSTOOL, CDT, LACTO SWBC, CMP, LIPASE ####[place] [address] [place]#### OPEXAM, ELASTASE STOOL ####[facility] , Anion gap [Moles/Vol] 12.0 mmol/L Normal 6.0-15.0 [facility] Comment on above: Order Comment: Reaso n for Exam Nausea and vomiting, unspecified vomiting type;Diarrhea, uns Performed By: #### A MY, OB(GUAIAC), CUSTOOL, CDT, LACTO SWBC, CMP, LIPASE ####[address] [place] [address] [place]#### OPEXAM, ELASTASE STOOL ####[facility] , AST [Catalytic activity/Vol] 11 U/L Low 13-39 [facility] Comment on above: Order Comment: Reaso n for Exam Nausea and vomiting, unspecified vomiting type;Diarrhea, uns Performed By: #### A MY, OB(GUAIAC), CUSTOOL, CDT, LACTO SWBC, CMP, LIPASE ####[address]#### OPEXAM, ELASTASE STOOL ####[facility] , Bilirubin [Mass/Vol] 0.3 mg/dL Normal 0.3-1.0 [facility] Comment on above: Order Comment: Reaso n for Exam Nausea and vomiting, unspecified vomiting type;Diarrhea, uns Performed By: #### A MY, OB(GUAIAC), CUSTOOL, CDT, LACTO SWBC, CMP, LIPASE ####[place] [address] [place]#### OPEXAM, ELASTASE STOOL ####[facility] , Calcium [Mass/Vol] 9.6 mg/dL Normal 8.6-10.3 [facility] Comment on above: Order Comment: Reaso n for Exam Nausea and vomiting, unspecified vomiting type;Diarrhea, uns Performed By: #### A MY, OB(GUAIAC), CUSTOOL, CDT, LACTO SWBC, CMP, LIPASE ####[place] [address] [place]#### OPEXAM, ELASTASE STOOL ####[facility] , Chloride [Moles/Vol] 110 mmol/L High 98-107 [facility] Comment on above: Order Comment: Reaso n for Exam Nausea and vomiting, unspecified vomiting type;Diarrhea, uns Performed By: #### A MY, OB(GUAIAC), CUSTOOL, CDT, LACTO SWBC, CMP, LIPASE ####[place] [address]#### OPEXAM, ELASTASE STOOL ####[facility] , CO2 [Moles/Vol] 20.5 mmol/L Low 21.0-31.0 [facility] Comment on above: Order Comment: Reaso n for Exam Nausea and vomiting, unspecified vomiting type;Diarrhea, uns Performed By: #### A MY, OB(GUAIAC), CUSTOOL, CDT, LACTO SWBC, CMP, LIPASE ####[address]#### OPEXAM, ELASTASE STOOL ####[facility] , Creatinine [Mass/Vol] 1.53 mg/dL High 0.60-1.20 [facility] Comment on above: Order Comment: Reaso n for Exam Nausea and vomiting, unspecified vomiting type;Diarrhea, uns Performed By: #### A MY, OB(GUAIAC), CUSTOOL, CDT, LACTO SWBC, CMP, LIPASE ####[place] [address] [place]#### OPEXAM, ELASTASE STOOL ####[facility] , GFR/1.73 sq M.predicted MDRD (S/P/Bld) [Vol rate/Area] 39.445 mL/min/{1.73_m2} Normal [facility] Comment on above: Order Comment: Reaso n for Exam Nausea and vomiting, unspecified vomiting type;Diarrhea, uns Performed By: #### A MY, OB(GUAIAC), CUSTOOL, CDT, LACTO SWBC, CMP, LIPASE ####[address] [place] [address] [place]#### OPEXAM, ELASTASE STOOL ####[facility] , Globulin (S) [Mass/Vol] 2.3 g/dL Normal [facility] Comment on above: Order Comment: Reaso n for Exam Nausea and vomiting, unspecified vomiting type;Diarrhea, uns Performed By: #### A MY, OB(GUAIAC), CUSTOOL, CDT, LACTO SWBC, CMP, LIPASE ####[place] [address] [address]#### OPEXAM, ELASTASE STOOL ####[facility] , Glucose [Mass/Vol] 103 mg/dL High 70-100 [facility] Comment on above: Order Comment: Reaso n for Exam Nausea and vomiting, unspecified vomiting type;Diarrhea, uns Result Comment: [facility] Glucose Reference Range is dependent on time and content of last meal. Glucose of more than 200 mg/dL in a nonstressed, ambulatory subject supports the diagnosis of Diabetes Mellitus. ADA recommended reference range Performed By: #### A MY, OB(GUAIAC), CUSTOOL, CDT, LACTO SWBC, CMP, LIPASE ####[place] [address] [address]#### OPEXAM, ELASTASE STOOL ####[facility] , Potassium [Moles/Vol] 4.5 mmol/L Normal 3.5-5.1 [facility] Comment on above: Order Comment: Reaso n for Exam Nausea and vomiting, unspecified vomiting type;Diarrhea, uns Performed By: #### A MY, OB(GUAIAC), CUSTOOL, CDT, LACTO SWBC, CMP, LIPASE ####[address]#### OPEXAM, ELASTASE STOOL ####[facility] , Protein [Mass/Vol] 6.2 g/dL Low 6.4-8.9 [facility] Comment on above: Order Comment: Reaso n for Exam Nausea and vomiting, unspecified vomiting type;Diarrhea, uns Performed By: #### A MY, OB(GUAIAC), CUSTOOL, CDT, LACTO SWBC, CMP, LIPASE ####[facility]#### OPEXAM, ELASTASE STOOL ####[facility] , Sodium [Moles/Vol] 138 mmol/L Normal 136-145 [facility] Comment on above: Order Comment: Reaso n for Exam Nausea and vomiting, unspecified vomiting type;Diarrhea, uns Performed By: #### A MY, OB(GUAIAC), CUSTOOL, CDT, LACTO SWBC, CMP, LIPASE ####[facility]#### OPEXAM, ELASTASE STOOL ####[facility] , Urea nitrogen [Mass/Vol] 16 mg/dL Normal 7-25 [facility] Comment on above: Order Comment: Reaso n for Exam Nausea and vomiting, unspecified vomiting type;Diarrhea, uns Performed By: #### A MY, OB(GUAIAC), CUSTOOL, CDT, LACTO SWBC, CMP, LIPASE ####[facility]#### OPEXAM, ELASTASE STOOL ####[facility] , Creatinine [Mass/volume] in Serum or PlasmaOrdered By: Maria Teresa Rojo on 06-22-2023 Creatinine [Mass/Vol] 1.53 mg/dL 0.60-1.20 [facility] Elastase.pancreatic [Mass/ma ss] in StoolOrdered By: Maria Teresa Rojo on 06-22-2023 Elastase.pancreatic (Stl) [Mass/Mass] >500 >200 [facility] Comment on above: Result Units: ug Tamiko st./g Severe Pancreatic Insufficiency: <100 Moderate Pancreatic Insufficiency: 100 - 200 Normal: >200Performed at: - [facility] [id number] Director: Silvia Escoto MD, Phone: [phone] Fecal occult blood detection by immunochemistryOrdered By: Maria Teresa Rojo on 06-22-2023 Hemoglobin.gastrointest inal Ql (Stl) [facility] Globulin Calc (S) [Mass/Vol] Ordered By: Maria Teresa Rojo on 06-22-2023 Globulin (S) [Mass/Vol] 2.3 g/dL [facility] Glucose [Mass/volume] in Ser um or PlasmaOrdered By: Maria Teresa Rojo on 06-22-2023 Glucose [Mass/Vol] 103 mg/dL 70-100 [facility] Comment on above: ADA recommended refe rence rangeRandom Glucose Reference Range is dependent on time and content of last meal. Glucose of more than 200 mg/dL in a nonstressed, ambulatory subject supports the diagnosis of Diabetes Mellitus. Lactoferrin, Stool WBCon Lactoferrin, Stool WBC Reason for Exam N ausea and vomiting, unspecified vomiting type;Diarrhea, uns Stool Reason for Exam: Nausea and vomiting, unspecified vomiting type;Diarrhea, uns : Stool LACTOFERRIN Negative for Fecal Lactoferrin Immune suppression may cause reduced WBC counts, leading to a false negative result. -- Reference range = Negative PERFORMED BY: [facility] [address] [place] [address] PATHOLOGIST FRANCHISE FIELD CONSULTANT OSCAR SOTO M.D. Normal [facility] Comment on above: Performed By: #### A MY, OB(GUAIAC), CUSTOOL, CDT, LACTO SWBC, CMP, LIPASE ####[facility] [id number]#### OPEXAM, ELASTASE STOOL ####[facility] , Lipaseon 10-26-2023 Lipase [Catalytic activity/Vol] 31.0 U/L Normal 11.0-82.0 [facility] Comment on above: Order Comment: Reaso n for Exam Nausea and vomiting, unspecified vomiting type;Diarrhea, uns Result Comment: PERF ORMED BY: [place] [address] PATHOLOGIST FRANCHISE FIELD CONSULTANT OSCAR SOTO M.D. Performed By: #### A MY, OB(GUAIAC), CUSTOOL, CDT, LACTO SWBC, CMP, LIPASE ####[facility] [id number]#### OPEXAM, ELASTASE STOOL ####[facility] , Lipase [Enzymatic activity/v olume] in Serum or PlasmaOrdered By: Maria Teresa Rojo on 06-22-2023 Lipase [Catalytic activity/Vol] 31.0 U/L 11.0-82.0 [facility] No Panel InformationOrdered By: Maria Teresa Rojo on 06-22-2023 Ova and Parasite Result 1 [facility] Estimated GFR (CKD-EPI) 39.445 mL/Min [facility] Creatinine Clearance (Chem N/A [facility] OVA AND PARASITEon 3 OVA AND PARASITE Reason for Exam Naus ea and vomiting, unspecified vomiting type;Diarrhea, uns Stool Reason for Exam: Nausea and vomiting, unspecified vomiting type;Diarrhea, uns : Stool Final report These results were obtained using wet preparation(s) and trichrome stained smear. This test does not include testing for Cryptosporidium parvum, Cyclospora, or Microsporidia. Reason for Exam Nausea and vomiting, unspecified vomiting type;Diarrhea, uns Stool Reason for Exam: Nausea and vomiting, unspecified vomiting type;Diarrhea, uns : Stool No ova, cysts, or parasites seen. One negative specimen does not rule out the possibility of a parasitic infection. Performed at: [address] [id number] Recycling Tech: Rocco Macedo PhD, Phone: [phone] PERFORMED BY: [facility] [address] [facility] [address] [address] [address] PATHOLOGIST FRANCHISE FIELD CONSULTANT OSCAR SOTO M.D. Normal [facility] Comment on above: Performed By: #### A MY, OB(GUAIAC), CUSTOOL, CDT, LACTO SWBC, CMP, LIPASE ####[facility]#### OPEXAM, ELASTASE STOOL ####[facility] , Ova or parasites identificat ionOrdered By: Maria Teresa Rojo on 06-22-2023 Ova and parasites identified LM Nom (Unsp spec) [facility] Pancreatic Elastase, Stoolon 06-22-2023 Pancreatic Elastase, Stool >500 Normal >200 [facility] Comment on above: Order Comment: Reaso n for Exam Nausea and vomiting, unspecified vomiting type;Diarrhea, uns Result Comment: Resu lt Units: ug Elast./g Severe Pancreatic Insufficiency: <100 Moderate Pancreatic Insufficiency: 100 - 200 Normal: >200 Performed at: [facility] [id number] Recycling Tech: Silvia Escoto MD, Phone: [phone] PERFORMED BY: [facility] [address] [place] [address] PATHOLOGIST FRANCHISE FIELD CONSULTANT OSCAR SOTO M.D. Performed By: #### A MY, OB(GUAIAC), CUSTOOL, CDT, LACTO SWBC, CMP, LIPASE ####[address]#### OPEXAM, ELASTASE STOOL ####[facility] , Potassium [Moles/volume] in Serum or PlasmaOrdered By: Maria Teresa Rojo on 06-22-2023 Potassium [Moles/Vol] 4.5 mmol/L 3.5-5.1 [facility] Protein [Mass/volume] in Ser um or PlasmaOrdered By: Maria Teresa Rojo on 06-22-2023 Protein [Mass/Vol] 6.2 g/dL 6.4-8.9 [facility] Serum or plasma albumin/glob ulin mass ratioOrdered By: Maria Teresa Rojo on 06-22-2023 Albumin/Globulin [Mass ratio] 1.7 {ratio} [facility] Serum or plasma anion gap de terminationOrdered By: Maria Teresa Rojo on 06-22-2023 Anion gap [Moles/Vol] 12.0 mmol/L 6.0-15.0 [facility] Sodium [Moles/volume] in Ser um or PlasmaOrdered By: Maria Teresa Rojo on 06-22-2023 Sodium [Moles/Vol] 138 mmol/L 136-145 [facility] Stool Cultureon 06-22-2023 Stool culture Reason for Exam Naus ea and vomiting, unspecified vomiting type;Diarrhea, uns Stool Reason for Exam: Nausea and vomiting, unspecified vomiting type;Diarrhea, uns : Stool Negative for Shiga Toxin 1 Negative for Shiga Toxin 2 Pred. Gram Pos Org Predominantly Gram Positive Organisms -- A negative Shiga Toxin result may occur if the antigen level in the specimen is below the detection limit of the assay. Stool culture results No Salmonella, Shigella, Campy or E. coli 0157:H7 Isolated Moderate growth of yeast also present PERFORMED BY: [facility] [address] [place] [address] PATHOLOGIST FRANCHISE FIELD CONSULTANT OSCAR SOTO M.D. Normal [facility] Comment on above: Performed By: #### A MY, OB(GUAIAC), CUSTOOL, CDT, LACTO SWBC, CMP, LIPASE ####[facility] [id number]#### OPEXAM, ELASTASE STOOL ####[facility] , Stool Occult Blood (Guaiac)o n 06-22-2023 Stool Occult Blood (Guaiac) Reason for Exam Nausea and vomiting, unspecified vomiting type;Diarrhea, uns Stool Reason for Exam: Nausea and vomiting, unspecified vomiting type;Diarrhea, uns : Stool Occult Blood Negative for Occult Blood by Guaiac Methodology -- Reference range = Negative Reason for Exam Nausea and vomiting, unspecified vomiting type;Diarrhea, uns Stool Reason for Exam: Nausea and vomiting, unspecified vomiting type;Diarrhea, uns : Stool LACTOFERRIN Negative for Fecal Lactoferrin Immune suppression may cause reduced WBC counts, leading to a false negative result. -- Reference range = Negative PERFORMED BY: [place] [address] PATHOLOGIST FRANCHISE FIELD CONSULTANT OSCAR SOTO M.D. Normal [facility] Comment on above: Performed By: #### A MY, OB(GUAIAC), CUSTOOL, CDT, LACTO SWBC, CMP, LIPASE ####[facility] [id number]#### OPEXAM, ELASTASE STOOL ####[facility] , Stool bacteria identificatio n by cultureOrdered By: Maria Teresa Rojo on 06-22-2023 Bacteria identified Cx Nom (Stl) [facility] Stool lactoferrin detectionO rdered By: Maria Teresa Rojo on 06-22-2023 Lactoferrin Ql (Stl) [facility] Urea nitrogen [Mass/volume] in Serum or PlasmaOrdered By: Maria Teresa Rojo on 06-22-2023 Urea nitrogen [Mass/Vol] 16 mg/dL 03-21 [facility] US abdomen limitedon 023 US abdomen limited [facility] [address] [place] [address] [place] [address] Ultrasound Report Signed Patient: Stephani Fermin MR#: [id number] [birth year] : 1965 Acct:[id number] Age/Sex: 57 / F ADM Date: 05/15/23 Loc: Room: Type: [facility] Attending Dr: Alex Ovlera CAFETERIA TABLE ATTENDANTCaseyC Ordering Provider: Alex Olvera CNP Date of Service: 05/15/23 US/US abdomen limited: R10.11 Copies to: Alex Olvera CNP LIMITED ABDOMINAL ULTRASOUND: CLINICAL HISTORY: Right upper quadrant pain and diarrhea COMPARISON: CT 07/14/2021 The gallbladder is physiologically distended without shadowing gallstones. There is minimal sludge and a suspected gallbladder polyp. No wall thickening or pericholecystic fluid is seen. No intra- or extrahepatic biliary dilatation is evident. The common duct measures 3 - 4 mm. The liver and pancreas show no significant sonographic abnormality. There is appropriate hepatopetal flow within the main portal vein. Limited imaging of the right kidney shows no hydronephrosis or fluid within Bolton's pouch. There is a tiny lower pole right renal cyst measuring 8 mm in size. So an exophytic cyst laterally measuring 11 mm. US/US abdomen limited IMPRESSION: MINOR GALLBLADDER SLUDGE AND TINY POLYP. TINY RIGHT RENAL CYSTS. Impression dictated by: Tisha Funk M.D.05/15/2023 4:55 PM Dictation Location: [place] [address] Tech: Saadia Jinny Transcribed By: KENRICK 05/15/231654 Dictated By: Tisha Funk MD 05/15/231652 Signed By: 05/15/231654 [facility] Office Visit (Cardiology)on 04-27-2023 Follow-up visit Diagnoses/Problems Assessed Chest pain (786.50) (R07.9) COPD (chronic obstructive pulmonary disease) (496) (J44.9) Current smoker (305.1) (F17.200) 1/2 pack per daily History of AK (myocardial infarction) (412) (I25.2) History of PTCA (V45.82) (Z98.61) Tachycardia (785.0) (R00.0) Orders Asymptomatic bilateral carotid artery stenosis, Atherosclerosis of rincon coronary artery of rincon heart without angina pectoris, Extremity atherosclerosis with intermittent claudication, History of AK (myocardial infarction) Renew: Clopidogrel Bisulfate 75 MG Oral Tablet; TAKE 1 TABLET DAILY Asymptomatic bilateral carotid artery stenosis, Essential hypertension Renew: Metoprolol Tartrate 25 MG Oral Tablet; TAKE 0.5 TABLET Twice daily Atherosclerosis of rincon coronary artery of rincon heart without angina pectoris Changed: From Aspirin EC 81 MG TBEC TAKE 1 TABLET DAILY DIRECTED To Aspirin 81 81 MG Oral Tablet Delayed Release TAKE 1 TABLET Daily Atherosclerosis of rincon coronary artery of rincon heart without angina pectoris, Essential hypertension Renew: Spironolactone 25 MG Oral Tablet; take 1 tablet by mouth twice a day Chest pain Start: Nitroglycerin 0.4 MG/HR Transdermal Patch 24 Hour; APPLY PATCH FOR 12 TO 14 HOURS DAILY, THEN REMOVE Essential hypertension Renew: Lisinopril 5 MG Oral Tablet; TAKE 1 TABLET DAILY Hyperlipidemia Renew: Atorvastatin Calcium 80 MG Oral Tablet; TAKE 1 TABLET BY MOUTH EVERYDAY AT BEDTIME SocHx: Current smoker You need to quit smoking.; Status:Complete - Retrospective Authorization; Done: [id number] You need to stop smoking. Though it is not easy, more than half of all adult smokers have quit. We encourage you to write down all the reasons you should quit smoking and set a quit date for yourself. Ask us how we can help. You may also call 5-522-ECWCNOW for free resources and assistance.; Status:Complete - Retrospective Authorization; Done: [id number] Tobacco Use Screening; Status:Complete; Done: [id number] Patient Instructions Please bring all medicines, vitamins, and herbal supplements with you when you come to the office. Prescriptions will not be filled unless you are compliant with your follow up appointments or have a follow up appointment scheduled as per instruction of your physician. Refills should be requested at the time of your visit. Follow up in 8 weeks WITH Danya Larsen NP Hold Amlodipine til next ov Chief Complaint STEPHANI FERMIN is being seen for an annual follow-up of. Patient is a 57-year-old female returns for annual visit also at the request of Dr. Carlton of pulmonology for further evaluation and management regarding new onset chest discomfort with radiation to the infrascapular region of the left posterior thoracic area. This occurs on a daily basis not necessarily associated with exertion. She is able to complete all her daily activities without any disability.. Interestingly, she does describe isolated infrascapular discomfort independent of her anterior chest wall discomfort in the same for the chest discomfort. She does have active tobacco use approximately a pack of cigarettes daily, severe COPD She has underlying peripheral vascular disease with left greater than right lower extremity claudication with previous SFA percutaneous interventions remotely however with no active lower extremities tissue loss or acute threatened limb ischemia. He does have bilateral carotid disease recent carotid duplex exams from the last year reveals 50 to 69% disease bilaterally. Notably, she seems to run out of all of her cardiovascular meds and therefore has somewhat rebound tachycardia on today's exam. Recent stress perfusion imaging is ordered by Dr. Carlton was completely normal with no evidence for ischemia or infarction. She does have a history of previous inferior AK with revascularization of the RCA in 2015. We continue to advise and counseled against tobacco use for at least 5 minutes today, recommend reinitiating her cardiovascular meds and antiplatelet therapies which we have adjudicated, and will initiate a low-dose Nitro-Dur patch 0.2 mg daily to see if this makes any impact. Notably, her chest discomfort sounds somewhat atypical in nature due to its chronicity, resting nature without exertional exacerbation. Recommendations as noted above we will follow-up with nurse practitioner in 8 weeks I can see her again within the next 6 months we will hold off on heart cath for the time being unless she has worsening symptomatology or starts using nitroglycerin. Active Problems Problems Asthma (493.90) (J45.909) Asymptomatic bilateral carotid artery stenosis (433.10,433.30) (I65.23) Atherosclerosis of rincon coronary artery of rincon heart without angina pectoris (414.01) (I25.10) Bilateral carotid bruits (785.9) (R09.89) COPD (chronic obstructive pulmonary disease) (496) (J44.9) Current smoker (305.1) (F17.200) 1/2 pack per daily Essential hypertensio (more content not included)... Normal [facility] B-Type Natriuretic Peptideon 03-06-2023 Natriuretic peptide B (Bld) [Mass/Vol] 45.0 pg/mL Normal 5-100 [facility] Comment on above: Result Comment: PERF ORMED BY: [facility] [address] [place] [address] PATHOLOGIST FRANCHISE FIELD CONSULTANT OSCAR SOTO M.D. Performed By: #### B CAFETERIA TABLE ATTENDANT, CK, PTT, PT, CMP, HS TROP #### [facility] [address] Comprehensive Metabolic Pane lexy 03-06-2023 Albumin [Mass/Vol] 3.4 g/dL Low 3.5-5.7 [facility] Comment on above: Performed By: #### B CAFETERIA TABLE ATTENDANT, CK, PTT, PT, CMP, HS TROP #### [address] Albumin/Globulin [Mass ratio] 1.5 {ratio} Normal [facility] Comment on above: Performed By: #### B CAFETERIA TABLE ATTENDANT, CK, PTT, PT, CMP, HS TROP #### [address] ALP [Catalytic activity/Vol] 83 U/L Normal 34-104 [facility] Comment on above: Performed By: #### B CAFETERIA TABLE ATTENDANT, CK, PTT, PT, CMP, HS TROP #### [address] ALT [Catalytic activity/Vol] 8 U/L Normal 7-52 [facility] Comment on above: Performed By: #### B CAFETERIA TABLE ATTENDANT, CK, PTT, PT, CMP, HS TROP #### [address] Anion gap [Moles/Vol] 10.8 mmol/L Normal 6.0-15.0 [facility] Comment on above: Performed By: #### B CAFETERIA TABLE ATTENDANT, CK, PTT, PT, CMP, HS TROP #### [address] AST [Catalytic activity/Vol] 8 U/L Low 13-39 [facility] Comment on above: Performed By: #### B CAFETERIA TABLE ATTENDANT, CK, PTT, PT, CMP, HS TROP #### [address] Bilirubin [Mass/Vol] 0.5 mg/dL Normal 0.3-1.0 [facility] Comment on above: Performed By: #### B CAFETERIA TABLE ATTENDANT, CK, PTT, PT, CMP, HS TROP #### [facility] [address] Calcium [Mass/Vol] 8.9 mg/dL Normal 8.6-10.3 [facility] Comment on above: Performed By: #### B CAFETERIA TABLE ATTENDANT, CK, PTT, PT, CMP, HS TROP #### [facility] [address] Chloride [Moles/Vol] 111 mmol/L High 98-107 [facility] Comment on above: Performed By: #### B CAFETERIA TABLE ATTENDANT, CK, PTT, PT, CMP, HS TROP #### [facility] [address] CO2 [Moles/Vol] 18.4 mmol/L Low 21.0-31.0 [facility] Comment on above: Performed By: #### B CAFETERIA TABLE ATTENDANT, CK, PTT, PT, CMP, HS TROP #### [facility] [address] Creatinine [Mass/Vol] 1.09 mg/dL Normal 0.60-1.20 [facility] Comment on above: Performed By: #### B CAFETERIA TABLE ATTENDANT, CK, PTT, PT, CMP, HS TROP #### [address] Creatinine Clr Calc Pharmacy 40.90 [facility] Comment on above: Result Comment: PERF ORMED BY: [place] [address] PATHOLOGIST FRANCHISE FIELD CONSULTANT OSCAR SOTO M.D. Performed By: #### B CAFETERIA TABLE ATTENDANT, CK, PTT, PT, CMP, HS TROP #### [facility] [address] GFR/1.73 sq M.predicted MDRD (S/P/Bld) [Vol rate/Area] 59.254 mL/min/{1.73_m2} [facility] Comment on above: Performed By: #### B CAFETERIA TABLE ATTENDANT, CK, PTT, PT, CMP, HS TROP #### [facility] [address] Globulin (S) [Mass/Vol] 2.3 g/dL Normal [facility] Comment on above: Performed By: #### B CAFETERIA TABLE ATTENDANT, CK, PTT, PT, CMP, HS TROP #### [facility] [address] Glucose [Mass/Vol] 104 mg/dL High 70-100 [facility] Comment on above: Result Comment: [place] Glucose Reference Range is dependent on time and content of last meal. Glucose of more than 200 mg/dL in a nonstressed, ambulatory subject supports the diagnosis of Diabetes Mellitus. ADA recommended reference range Performed By: #### B CAFETERIA TABLE ATTENDANT, CK, PTT, PT, CMP, HS TROP #### [facility] [address] Potassium [Moles/Vol] 3.2 mmol/L Low 3.5-5.1 [facility] Comment on above: Performed By: #### B CAFETERIA TABLE ATTENDANT, CK, PTT, PT, CMP, HS TROP #### [address] Protein [Mass/Vol] 5.7 g/dL Low 6.4-8.9 [facility] Comment on above: Performed By: #### B CAFETERIA TABLE ATTENDANT, CK, PTT, PT, CMP, HS TROP #### [address] Sodium [Moles/Vol] 137 mmol/L Normal 136-145 [facility] Comment on above: Performed By: #### B CAFETERIA TABLE ATTENDANT, CK, PTT, PT, CMP, HS TROP #### [address] Urea nitrogen [Mass/Vol] 26 mg/dL High 7-25 [facility] Comment on above: Performed By: #### B CAFETERIA TABLE ATTENDANT, CK, PTT, PT, CMP, HS TROP #### [address] Creatine Kinaseon 03-06-2023 CK [Catalytic activity/Vol] 22 U/L Low 30-223 [facility] Comment on above: Performed By: #### B CAFETERIA TABLE ATTENDANT, CK, PTT, PT, CMP, HS TROP #### [facility] [address] [place], [place] [id number] [facility] ECG 12 lead ECGon 03-06-2023 ECG 12 lead ECG [facility] [place] [address] [place] [address] Electrocardiograph Report Signed Patient: Stephani Fermin MR#: [id number] [birth year] : 1965 Acct:[id number] Age/Sex: 57 / F ADM Date: 03/06/23 Loc: ER Room: Type: PRE ER Attending Dr: Ordering Provider: DORIS SERRANO Date of Service: 03/06/2306/19/1810 ECG/ECG 12 lead ECG: Chest Pain Copies to: Test Reason : Blood Pressure : 142/092 mmHG Vent. Rate : 100 BPM Atrial Rate : 100 BPM P-R Int : 118 ms QRS Dur : 078 ms QT Int : 346 ms P-R-T Axes : 074 073 087 degrees QTc Int : 446 ms Sinus rhythm with premature atrial complexes Confirmed by Gallo MILAN DO ([id number]) on 03/06/2023 8:36:21 PM Referred By: Electronically Signed By:Gallo MILAN DO Transcribed By: MUS Signed By Gallo Milan DO 0 03/06/232035 [facility] Partial Thromboplastin Timeo n 03-06-2023 aPTT Coag (Bld) [Time] 19.2 s Low 25.1-36.5 [facility] Comment on above: Result Comment: PERF ORMED BY: [place] [address] PATHOLOGIST [employer] CONSULTANT OSCAR SOTO M.D. Performed By: #### B CAFETERIA TABLE ATTENDANT, CK, PTT, PT, CMP, HS TROP #### [facility] [address] [place], [place] [id number] [facility] Prothrombin Time INRon 03-06 INR Coag (PPP) [Relative time] 1.0 {INR} [facility] Comment on above: Result Comment: INR Therapeutic Range A) Pre- and Peroperative OAT started two weeks before surgery. NOT HIP SURGERY: 1.5 - 2.5 HIP SURGERY: 2 - 3 B) Primary and secondary prevention of venous THROMBOSIS: 2 - 3 C) Active venous thrombosis, pulmonary embolism and prevention of recurrent venous thrombosis: 2 - 3 D) Prevention of arterial thromboembolism including patients with mechanical heart valves: 3 - 4.5 Performed By: #### B CAFETERIA TABLE ATTENDANT, CK, PTT, PT, CMP, HS TROP #### [facility] [address] PT Coag (PPP) [Time] 11.1 s Normal 9.0-12.9 [facility] Comment on above: Performed By: #### B CAFETERIA TABLE ATTENDANT, CK, PTT, PT, CMP, HS TROP #### [facility] [address] Troponin I High Sensitivityo n 03-06-2023 Troponin I High Sensitivity 7.0 pg/mL Normal 0.0-15.0 [facility] Comment on above: Result Comment: PERF ORMED BY: [place] [address] PATHOLOGIST [employer] CONSULTANT OSCAR SOTO M.D. Performed By: #### B CAFETERIA TABLE ATTENDANT, CK, PTT, PT, CMP, HS TROP #### [facility] [address] Activated partial thrombopla stin time (aPTT) in platelet poor plasma by coagulation aOrdered By: Earnest Holder on 02-26-2023 aPTT Coag (PPP) [Time] 44.2 s 25.1-36.5 [facility] Alanine aminotransferase [En zymatic activity/volume] in Serum or PlasmaOrdered By: Earnest Holder on 02-26-2023 ALT [Catalytic activity/Vol] 8 U/L 7-52 [facility] Albumin [Mass/volume] in Ser um or Plasma by Bromocresol green (BCG) dye binding methoOrdered By: Earnest Holder on 02-26-2023 Albumin BCG dye [Mass/Vol] 4.4 g/dL 3.5-5.7 [facility] Alkaline phosphatase [Enzyma tic activity/volume] in Serum or PlasmaOrdered By: Earnest Holder on 02-26-2023 ALP [Catalytic activity/Vol] 93 U/L 34-104 [facility] Aspartate aminotransferase [ Enzymatic activity/volume] in Serum or PlasmaOrdered By: Earnest Holder on 02-26-2023 AST [Catalytic activity/Vol] 12 U/L 13-39 [facility] B-Type Natriuretic Peptideon 02-26-2023 Natriuretic peptide B (Bld) [Mass/Vol] 31.0 pg/mL Normal 5-100 [facility] Comment on above: Result Comment: PERF ORMED BY: [facility] [address] [place] [address] PATHOLOGIST [employer] CONSULTANT OSCAR SOTO M.D. Performed By: #### B CAFETERIA TABLE ATTENDANT, PTT, HS TROP, PT, CMP, CBC ####[facility] [id number] [place] [id number] [facility] Basophils Auto (Bld) [#/Vol] Ordered By: Earnest Holder on 02-26-2023 Basophils (Bld) [#/Vol] 0.1 10*3/uL 0.0-0.2 [facility] Basophils/100 WBC Auto (Bld) Ordered By: Earnest Holder on 02-26-2023 Basophils/100 WBC (Bld) 1.0 % . [facility] Bilirubin.total [Mass/volume ] in Serum or PlasmaOrdered By: Earnest Holder on 02-26-2023 Bilirubin [Mass/Vol] 0.3 mg/dL 0.3-1.0 [facility] BioFire Not Detectedon 02-26 BioFire Not Detected Not detected Normal Not Detecte [facility] Comment on above: Result Comment: This is a duplicate RP2.1 COVID (PCR) result to be used for statistical tracking purpose only. PERFORMED BY: [facility] [address] [facility] [address] [address] PATHOLOGIST [employer] CONSULTANT OSCAR SOTO M.D. Performed By: #### B IOFIRECOVNOTDE, RESP PANEL UPP. ####[place] [address] [place] [id number] [facility] COVID-19 Detected/Not Detect edOrdered By: Earnest Holder on 02-26-2023 SARS-CoV-2 (COVID-19) RNA SHERYL+non-probe Ql (Nph) Not detected Not Detecte [facility] Comment on above: This is a duplicate RP2.1 COVID (PCR) result to be used for statistical tracking purpose only. Calcium [Mass/volume] in Ser um or PlasmaOrdered By: Earnest Holder on 02-26-2023 Calcium [Mass/Vol] 9.6 mg/dL 8.6-10.3 [facility] Carbon dioxide, total [Moles /volume] in Serum or PlasmaOrdered By: Earnest Holder on 02-26-2023 CO2 [Moles/Vol] 14.0 mmol/L 21.0-31.0 [facility] Chloride [Moles/volume] in S franklin or PlasmaOrdered By: Earnest Holder on 02-26-2023 Chloride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 slides with H E stained material have been examined. The microscopic findings support the above pathologic diagnosis. B. Two glass slides with H E stained material have been examined. The microscopic findings support the above pathologic diagnosis. CPT Codes 07981?2 Specimen: [id number] Received: 10/26/22-1254 Status: ABDELRAHMAN Lopez Num: [id number] Spec Type: Surgical Subm Dr: Anderson Espino MD Tissues: A Colon Biopsy (DESCENDING POLYP) B Colon Biopsy (SIGMOID POLYP) Procedures: HE/4, Gross/Micro L4/2 Patient: Stephani Fermin [id number] (Continued) Signed (signature on file) Vanessa Neves MD 10/27/22 1213 Normal [facility] Basophils Auto (Bld) [#/Vol] Ordered By: Adal Paris on 08-05-2022 Basophils (Bld) [#/Vol] 0.1 10*3/uL 0.0-0.2 [facility] Basophils/100 WBC Auto (Bld) Ordered By: Adal Paris on 08-05-2022 Basophils/100 WBC (Bld) 1.1 % . F [facility] Creatinine and Glomerular fi ltration rate.predicted panel (S/P/Bld)Ordered By: Adal Paris on 08-05-2022 Creatinine [Mass/Vol] 1.30 mg/dL 0.44-1.03 [facility] Eosinophils Auto (Bld) [#/Vo l]Ordered By: Adal Paris on 08-05-2022 Eosinophils (Bld) [#/Vol] 0.1 10*3/uL 0.0-0.45 [facility] Eosinophils/100 WBC Auto (Bl d)Ordered By: Adal Paris on 08-05-2022 Eosinophils/100 WBC (Bld) 1.2 % . [facility] Erythrocyte distribution wid th Auto (RBC) [Ratio]Ordered By: Adal Paris on 08-05-2022 Erythrocyte distribution width (RBC) [Ratio] 13.9 % 11.9-15.3 [facility] Estimated glomerular filtrat ion rate (GFR) non- AmericanOrdered By: Adal Paris on 08-05-2022 GFR/1.73 sq M.predicted among non-blacks MDRD (S/P/Bld) [Vol rate/Area] 42 mL/Min [facility] Hematocrit Auto (Bld) [Volum e fraction]Ordered By: Adal Paris on 08-05-2022 Hematocrit (Bld) [Volume fraction] 37.8 % 34.0-46.4 [facility] Hemoglobin [Mass/volume] in BloodOrdered By: Adal Paris on 08-05-2022 Hemoglobin (Bld) [Mass/Vol] 12.4 g/dL 11.8-15.4 [facility] Leukocytes [#/volume] correc aaliyah for nucleated erythrocytes in Blood by Automated counOrdered By: Adal Paris on 08-05-2022 WBC corrected for nucl RBC Auto (Bld) [#/Vol] 5.2 10*3/uL 3.8-11.6 [facility] Lymphocytes Auto (Bld) [#/Vo l]Ordered By: Adal Paris on 08-05-2022 Lymphocytes (Bld) [#/Vol] 1.5 10*3/uL 1.00-4.8 [facility] Lymphocytes/100 WBC Auto (Bl d)Ordered By: Adal Paris on 12-09-2022 Lymphocytes/100 WBC (Bld) 28.1 % . [facility] MCH Auto (RBC) [Entitic mass ]Ordered By: Adal Paris on 08-05-2022 MCH (RBC) [Entitic mass] 30.6 pg 24.7-34.3 [facility] MCHC Auto (RBC) [Mass/Vol]Or dered By: Adal Paris on 08-05-2022 MCHC (RBC) [Mass/Vol] 32.7 g/dL 32.0-35.0 [facility] MCV Auto (RBC) [Entitic vol] Ordered By: Adal Paris on 08-05-2022 MCV (RBC) [Entitic vol] 93.5 fL 80-100 [facility] Monocytes Auto (Bld) [#/Vol] Ordered By: Adal Paris on 08-05-2022 Monocytes (Bld) [#/Vol] 0.4 10*3/uL 0.0-0.8 [facility] Monocytes/100 WBC Auto (Bld) Ordered By: Adal Paris on 08-05-2022 Monocytes/100 WBC (Bld) 8.6 % . [facility] Neutrophils Auto (Bld) [#/Vo l]Ordered By: Adal Paris on 08-05-2022 Neutrophils (Bld) [#/Vol] 3.2 10*3/uL 1.8-7.7 [facility] Neutrophils/100 WBC Auto (Bl d)Ordered By: Adal Paris on 08-05-2022 Neutrophils/100 WBC (Bld) 61.0 % . [facility] No Panel InformationOrdered By: Adal Paris on 08-05-2022 Estimated GFR () 51 mL/Min [facility] Comment on above: GFR estimated refere nce range: According to KDOQI guidelines, <60 ml/min/1.73m2 is sufficient to diagnose a patient with chronic kidney disease. Pharmacy Creatinine Clearance (Chem N/A [facility] Nucleated erythrocytes [Pres ence] in Blood by Automated countOrdered By: Adal Paris on 08-05-2022 Nucleated RBC Auto Ql (Bld) 0.0 /100{WBC} 0-0.5 [facility] Platelet mean volume Auto (B ld) [Entitic vol]Ordered By: Adal Paris on 08-05-2022 Platelet mean volume (Bld) [Entitic vol] 9.4 fL 6.3-10.7 [facility] Platelets Auto (Bld) [#/Vol] Ordered By: Adal Paris on 08-05-2022 Platelets (Bld) [#/Vol] 229 10*3/uL 150-450 [facility] RBC Auto (Bld) [#/Vol]Ordere d By: Adal Paris on 08-05-2022 RBC (Bld) [#/Vol] 4.05 10*6/uL 3.60-5.00 [facility] Serum or plasma anion gap de terminationOrdered By: Adal Paris on 08-05-2022 Anion gap [Moles/Vol] 9.3 mmol/L 6.0-15.0 [facility] Serum or plasma calcium roly urement (mass/volume)Ordered By: Adal Paris on 08-05-2022 Calcium [Mass/Vol] 9.3 mg/dL 8.2-10.2 [facility] Serum or plasma chloride jin surement (moles/volume)Ordered By: Adal Paris on 08-05-2022 Chloride [Moles/Vol] 110 mmol/L 95-114 [facility] Serum or plasma glucose roly urement (mass/volume)Ordered By: Adal Paris on 08-05-2022 Glucose [Mass/Vol] 120 mg/dL 70-100 [facility] Comment on above: ADA recommended refe rence rangeRandom Glucose Reference Range is dependent on time and content of last meal. Glucose of more than 200 mg/dL in a nonstressed, ambulatory subject supports the diagnosis of Diabetes Mellitus. Serum or plasma potassium me asurement (moles/volume)Ordered By: Adal Paris on 08-05-2022 Potassium [Moles/Vol] 2.8 mmol/L 3.5-5.1 [facility] Comment on above: Results calledat 144 5 on 08/05/22 Serum or plasma sodium measu rement (moles/volume)Ordered By: Adal Paris on 08-05-2022 Sodium [Moles/Vol] 137 mmol/L 136-146 [facility] Serum or plasma total carbon dioxide measurement (moles/volume)Ordered By: Adal Paris on 08-05-2022 CO2 [Moles/Vol] 20.5 mmol/L 22.0-30.0 [facility] Serum or plasma urea nitroge n measurement (mass/volume)Ordered By: Adal Paris on 08-05-2022 Urea nitrogen [Mass/Vol] 12 mg/dL 9-23 [facility] WBC Auto (Bld) [#/Vol]Ordere d By: Adal Paris on 08-05-2022 WBC (Bld) [#/Vol] 5.2 10*3/uL 3.8-11.6 [facility] [address] Chest w/o Contraston 10-0 CT Chest w/o Contrast EXAM: Chest CT History: Weight loss, cough, COPD Technique: Multiple contiguous axial images were obtained of the thorax from the thoracic inlet through the upper abdomen Sagittal and coronal reformats were obtained. All CT scans at this facility use dose modulation, iterative reconstruction, and/or weight based dosing when appropriate to reduce radiation dose to as low as reasonably achievable. Comparison: Findings: Visualized portion of the thyroid gland is within normal limits. No axillary, mediastinal, or hilar lymphadenopathy. Esophagus is within normal limits. There is a three-vessel aortic arch. No thoracic aortic aneurysm. There is no cardiomegaly. There is an inhomogeneous pericardial effusion layering to the dependent portion of the pericardium with a maximum diameter 1.4 cm. There is centrilobular emphysema throughout both lungs with hyperinflation and hyperlucency. No pulmonary nodule or mass. No consolidation, pleural effusion, or pneumothorax. The visualized portions of the upper abdomen appear within normal limits. Bones of the thorax are within normal limits. IMPRESSION: There are chronic emphysematous changes involving both lungs without nodules or infiltrates. There is a pericardial effusion layering to the dependent portions of the pericardium. Report reported and signed by HARRY CADENA on 05/30/2022 [address] [facility] CT Soft Tissue Neck w/ Contr ast*on 05-30-2022 CT Soft Tissue Neck w/ Contrast* CLINICAL HISTORY: Weight loss COMPARISON: NONE. FINDINGS: TECHNIQUE: Multiple images axial images were obtained after IV contrast administration. 3-D sagittal and coronal reconstructions were performed. All CT scans at this facility use dose modulation, iterative reconstruction, and/or weight based dosing when appropriate to reduce radiation dose to as low as reasonably achievable. The visualized intracranial portions are within normal limits. The orbits demonstrate no intra or extraconal lesions, the globes are intact. The paranasal sinuses are well aerated. There are no lytic or sclerotic bone lesions. There is no fracture or subluxation. The cervical spine is within normal limits. The visualized portions of the lung apices are unremarkable. The nasopharynx and oropharynx are within normal limits. There is no asymmetry or space-occupying lesions. The hypopharynx is within normal limits. The epiglottis is not enlarged. The vallecula are symmetric. The false and true vocal cords are unremarkable. The trachea is patent. There is no cervical lymphadenopathy. There are no areas of abnormal enhancement after IV contrast administration. The bilateral parotid glands and submandibular glands are normal in size and attenuation. The thyroid gland is within normal limits. IMPRESSION: There are no solid or cystic lesions, there is no cervical lymphadenopathy, there is no abnormal enhancement after IV contrast. Report reported and signed by HARRY CADENA on 05/30/2022 1441 Normal [facility] Associate Director Financial Aid [facility] LAB Carotid Artery Dupl ex Ultrasounon 04-18-2022 VASC LAB Carotid Artery Duplex Ultrasoun [address], [address] [place] [address] Vascular Lab Report Carotid Artery Duplex Ultrasound Patient Name: STEPHANI Edouard [id number] Sherice Gómez MD, [facility] Physician: Study Date: 04/18/2022 Referring 31930 KING GERTRUDE Physician: MRN/PID: [id number] PCP: [facility] Accession/Order#: [id number] CC Report to: Date of : 1965 Technologist: Carola Limon RDCS, RVT Gender: F Technologist 2: Admission Status: Outpatient Location [facility] Performed: Diagnosis/ICD: I65.23-Occlusion and stenosis of bilateral carotid arteries; I73.9-Peripheral vascular disease, unspecified Indication: Ronen Carotid Bruit, CAD, HTN, Hyperlipidemia, Tobacco Abuse, Intermittent LE Claudication, COPD, Ronen LE Stents, [place] and PTCA-2014 Procedure/CPT: 71496 Cerebrovascular Carotid Duplex scan complete-[id number] CONCLUSIONS: Right Carotid: Findings are consistent with 50 to 69% stenosis of the right proximal ICA. Laminar flow seen by color Doppler. There are elevated velocities in the right ECA that are suggestive of disease. No evidence of hemodynamically significant stenosis of the right common carotid artery. The right vertebral artery is patent with antegrade flow. Compared to study from 04/29/2020 there is slight increase in the velocity in the right. ICA. Left Carotid: Findings are consistent with 50 to 69% stenosis of the left proximal ICA. Laminar flow seen by color Doppler. There are elevated velocities in the left ECA that are suggestive of disease. No evidence of hemodynamically significant stenosis of the left common carotid artery. The left vertebral artery is patent with antegrade flow. Compared to study from 04/29/2020, there is slight increase in the velocity in the left. ICA. Imaging AND Doppler Findings: Right Plaque Morph: The distal right common carotid artery demonstrates heterogenous, irregular and calcified plaque. Left Plaque Morph: The distal left common carotid artery demonstrates heterogenous, irregular and calcified plaque. Right Left PSV EDV PSV EDV 99 cm/s 25 cm/s CCA P 107 cm/s 25 cm/s 83 cm/s 20 cm/s CCA M 73 cm/s 23 cm/s 93 cm/s 24 cm/s CCA D 103 cm/s 23 cm/s 128 cm/s 32 cm/s ICA P 219 cm/s 31 cm/s 83 cm/s 28 cm/s ICA M 129 cm/s 37 cm/s 92 cm/s 33 cm/s ICA D 108 cm/s 29 cm/s 163 cm/s ECA 249 cm/s 29 cm/s Vertebral 60 cm/s Right Left ICA/CCA Ratio 1.4 2.1 [id number] Sherice Gómez MD, FACC Final Normal [facility] VAS LAB Carotid Artery Dupl ex Ultrasoundon 04-18-2022 US.doppler Carotid arteries -[facility] Heart-Sandu beau 250 DO Work Phone: VASC LAB PVR W/O EXERCISEon 04-18-2022 VASC LAB PVR W/O EXERCISE MP-[facility] Heart-[place] be[place] 250 DO Work Phone: VASC LAB PVR W/O Exerciseon 04-18-2022 VASC LAB PVR W/O Exercise [facility] Heart [place] [address] [facility], [address] [facility] [place], [place] [address] Vascular Lab Report PVR With Out Exercise Patient Name: STEPHANI FERMIN [place] [id number] Sherice Gómez MD, [facility] Physician: Study Date: 04/18/2022 Referring 38607 KING DUKE Physician: MRN/PID: [id number] [facility] Accession/Order#: [id number] CC Report to: Date of : 1965 Technologist: Carola Limon RDCS, RVT Gender: F Technologist 2: Admission Status: Outpatient Location [facility] Performed: Diagnosis/ICD: I73.9-Peripheral vascular disease, unspecified Indication: ASCVD, [place] and PTCA-2014, Ronen LE Stents, Intermittent LE Claudication, COPD, HTN, Hyperlipidemia, Tobacco Abuse Procedure/CPT: 37729 Peripheral artery PVR (multi segmental pressure)-08685 CONCLUSIONS: Bilateral Lower PVR: No evidence of arterial occlusive disease bilaterally in the lower extremities at rest. Right Lower PVR: Monophasic flow is noted in the right dorsalis pedis artery and right posterior tibial artery. Biphasic flow is noted in the right common femoral artery, right superficial femoral artery, right popliteal artery, right peroneal artery and right anterior tibial artery. Normal PVR waveform in right lower extremity. Left Lower PVR: Monophasic flow is noted in the left dorsalis pedis artery. Biphasic flow is noted in the left peroneal artery and left anterior tibial artery. Triphasic flow is noted in the left common femoral artery, left superficial femoral artery and left popliteal artery. Normal PVR waveforms in the left lower extremity. Imaging AND Doppler Findings: RIGHT Lower PVR Pressures Ratios Right High Thigh 156 mmHg 1.09 Right Low Thigh 145 mmHg 1.01 Right Calf 144 mmHg 1.01 Right Posterior Tibial (Ankle) 140 mmHg 0.98 Right Dorsalis Pedis (Ankle) 134 mmHg 0.94 LEFT Lower PVR Pressures Ratios Left High Thigh 150 mmHg 1.05 Left Low Thigh 145 mmHg 1.01 Left Calf 143 mmHg 1.00 Left Posterior Tibial (Ankle) 136 mmHg 0.95 Left Dorsalis Pedis (Ankle) 117 mmHg 0.82 Right Left Brachial Pressure 143 mmHg 131 mmHg [id number] Sherice Gómez MD, FACC Final Normal [facility] Tobacco Screening.on Adult depression screening assessment No -[facility] [address] 250 DO Work Phone: Tobacco use status [facility] a) Yes M [facility] Heart-Sandu beau 250 DO Work Phone: Tobacco Screening. Yes [facility] Heart-Sandu beau 250 DO Work Phone: Tobacco Screening.on Tobacco use status [facility]PHS a) Yes M [facility] Heart-Sandu beau 250 DO Work Phone: Coding Summary.on 06-16-2020 Coding Summary. CODING DATE: FINAL [facility] DSC STATUS: Home ([facility]) PAYOR: Medicaid EAPG DESCRIPTION 0425 LEVEL I OTHER MISCELLANEOUS ANCILLARY PROCEDURES 0471 PLAIN FILM 0403 ORGAN OR DISEASE ORIENTED PANELS 0401 LEVEL II CHEMISTRY TESTS 0400 LEVEL I CHEMISTRY TESTS 0408 LEVEL I HEMATOLOGY TESTS 0406 LEVEL I CLOTTING TESTS 0413 CARDIOGRAM 0065 RESPIRATORY THERAPY 0574 CHRONIC OBSTRUCTIVE PULMONARY DISEASE 0496 MINOR PHARMACOTHERAPY ADMIT DX: REASON FOR VISIT DX: R06.02 Shortness of breath R05 Cough FINAL DX: PRINCIPAL: J44.1 Chronic obstructive pulmonary disease with (acute) exacerbation SECONDARY: Z79.51 MCC (current) use of inhaled steroids Z88.1 Allergy status to other antibiotic agents Z86.79 Personal history of other diseases of the circulatory system PYMT PROC EAPG STAT DESCRIPTION DOCTOR NAME DATE NOTE: The code number assigned matches the documented diagnosis and / or procedure in the patient's chart. However, the narrative phrase printed from the coding software may appear abbreviated, or result in slightly different terminology. Revised Coded By: Natalya Lewis Revised Date Saved: 06/16/2020 08:49 am Normal [facility] Discharge Instructionson Discharge Instructions [id number] Normal [facility] ED Clinical Summaryon 2019 ED Clinical Summary (Inserted Image. Roxane ble to display) [place] [id number] ED Clinical Summary Person Information Name: STEPHANI FERMIN/Becky Age: 54 Years : 1965 Sex: Female Language: American PCP: KIMBER LAM DO Marital Status: Visit Id: Visit Reason: Shortness of breath; SOB, HX COPD Speciality: Acuity: 2 Enc Type: Emergency Med Service: Emergency Arrival: 06/09/2020 19:51:06 Discharge: 06/09/2020 22:16:24 LOS: 000 02:25 Checkin: 06/09/2020 19:51:06 Checkout: 06/09/2020 22:16:24 Dispo Type: Home (Routine DC) EVENTS: Event Name Event Status Request Date/Time Start Date/Time Complete Date/Time Arrive Complete 06/09/2020 19:51:06 06/09/2020 19:51:06 06/09/2020 19:51:06 Document Home Meds Request 06/09/2020 19:51:06 Triage Complete 06/09/2020 19:51:06 06/09/2020 20:10:39 06/09/2020 20:10:39 Bed Assign Complete 06/09/2020 19:55:21 06/09/2020 19:55:21 06/09/2020 19:55:21 Dr Exam Complete 06/09/2020 19:55:21 06/09/2020 19:55:47 06/09/2020 19:55:47 RN Exam Complete 06/09/2020 19:55:21 06/09/2020 20:16:23 06/09/2020 20:16:23 Registration Complete 06/09/2020 19:55:47 06/09/2020 20:32:50 06/09/2020 20:32:50 EKG Complete 06/09/2020 19:55:59 06/09/2020 20:05:11 Pending Labs Request 06/09/2020 20:07:13 Lab Complete 06/09/2020 20:07:13 06/09/2020 20:39:13 Patient Care Complete 06/09/2020 20:07:13 06/09/2020 21:05:16 RT Request 06/09/2020 20:07:13 X-Ray Complete 06/09/2020 20:07:13 06/09/2020 20:27:43 06/09/2020 20:50:28 Meds Admin Complete 06/09/2020 20:07:13 06/09/2020 21:04:50 RT Tx/ABG Complete 06/09/2020 20:07:14 06/09/2020 21:08:35 06/09/2020 21:08:35 Pending Labs Complete 06/09/2020 20:14:03 06/09/2020 20:14:03 06/09/2020 20:28:24 Lab Complete 06/09/2020 20:14:03 06/09/2020 20:14:03 06/09/2020 20:28:24 Pending Labs Complete 06/09/2020 20:18:52 06/09/2020 20:18:52 06/09/2020 20:18:56 Lab Complete 06/09/2020 20:18:52 06/09/2020 20:18:52 06/09/2020 20:18:56 Reg Complete Request 06/09/2020 20:32:50 Reg Bed Request Complete 06/09/2020 20:32:50 06/09/2020 20:32:50 06/09/2020 20:32:50 Wet Read Complete 06/09/2020 20:50:28 06/09/2020 20:51:50 06/09/2020 20:51:50 Pending Labs Complete 06/09/2020 21:40:28 06/09/2020 21:40:28 06/09/2020 21:40:29 Discharge Complete 06/09/2020 21:58:46 06/09/2020 22:16:32 06/09/2020 22:16:32 Meds Admin Complete 06/09/2020 22:02:20 06/09/2020 22:09:11 Transfer Complete 06/09/2020 22:16:32 06/09/2020 22:16:32 06/09/2020 22:16:32 ADDRESS: [address] [place] [id number] PHYS DOC NOTES: MEDICAL INFORMATION: Prescriptions Given: New Medications Printed Prescriptions albuterol (albuterol CFC free 90 mcg/inh Inh Aer w/Adapt 8 gm (Ventolin)) 2 Puffs Inhalation 4 times a day. Refills: 0. levofloxacin (Levaquin 750 mg Tab) 1 Tablets By Mouth every day for 7 Days. Refills: 0. predniSONE (predniSONE 20 mg Tab) 3 By Mouth every day. Refills: 0. PATIENT EDUCATION INFORMATION: Instructions: Follow up: With: Address: When: KIMBER LAM [address] [place] [id number] Business (1) In 3 days DIAGNOSIS: COPD exacerbation Normal [facility] ED Note-Nursingon 06-10-2020 ED Note-Nursing Pt ambulated around ER, pt states I feel like I could run a marathon . Pt has no distress, pulse ox upon return to room is 95%, HR 92. Dr. Dumont notified. Normal [facility] ED Note-Physicianon 06-10-20 20 ED Note-Physician Basic Information Time Seen: Blas Dumont DO 06/09/2020 19:55 Chief Complaint Pt c/o increased sob last few days, had sinus infection week ago, tx with atb. Productive cough, hx copd. Pt denies pain. History of Present Illness 54 female presents to the emergency department with shortness of breath. Patient has history of COPD and states that she has been short of breath over the last 2 to 3 days. She does have productive cough with white sputum has been using her inhalers without relief. She denies any chest pain but does have history of CAD from years ago. Patient denies any pain or swelling into her abdomen or legs denies any fevers denies any exposures to coronavirus. Patient was just recently treated for sinusitis with unknown antibiotic last week she states her sinus infection has improved but now she has the infection into her chest with the shortness of breath. No other aggravating or relieving factors no other associated symptoms no other prior treatments or complaints. Family: Reviewed and noncontributory Social: lives at home Review of systems negative unless otherwise specified in the HPI. Physical Exam Vitals & Measurements T: 36.7 ?C (Oral) HR: 74(Monitored) RR: 20 BP: 193/113 SpO2: 97% HT: 157 cm HT: 157.0 cm WT: 51 kg WT: 51.0 kg BMI: 20.69 General: The patient appears well and in no apparent distress. Patient is resting comfortably on cart. Skin: Warm, dry, no pallor noted. Head: Normocephalic, atraumatic Neck: No JVD Eye: PERRLA, EOMI ENT: Moist mucus membranes Cardiovascular: Regular rate normal peripheral perfusion Respiratory: No respiratory distress no accessory muscle use no obvious audible wheezing Chest Wall: no deformity Musculoskeletal: normal ROM, no deformity, no swelling Neurological: A&O moves all extremities equal strength and symmetry Psychiatric: Cooperative and appropriate Medical Decision Making Work-up in the ER has been reviewed and noted. Patient is treated here with breathing treatments and steroids and feels much better. She was able to ambulate in the emergency department without difficulty will be discharged home on Levaquin prednisone and albuterol given that we do not have access to the antibiotic she completed last week we went with more of a broad coverage antibiotic. She is comfortable with this plan and is discharged home to follow-up. Assessment/Plan COPD exacerbation (J44.1: Chronic obstructive pulmonary disease with (acute) exacerbation) Orders: albuterol, 2 puff(s), Inhalation, QID, 8 gram, Refill(s) 0 albuterol-ipratropium, 3 mL, Soln-Inh, Inhalation, Once, Stop date 06/09/20 20:06:00 EDT, STAT, Start date 06/09/20 20:06:00 EDT levofloxacin, 500 mg = 1 tab(s), Tab, Oral, Once, Stop date 06/09/20 22:02:00 EDT, STAT, Start date 06/09/20 22:02:00 EDT levofloxacin, 750 mg = 1 tab(s), Oral, Daily, X 7 day(s), # 7 tab(s), Refills(s) 0 magnesium sulfate + Generic Diluent 50 mL, 2 gram = 50 mL, IV Piggyback, Once, Stop date 06/09/20 20:06:00 EDT, STAT, Start date 06/09/20 20:06:00 EDT, 25 mL/hr, Infuse over 2 hour(s) methylPREDNISolone, 125 mg = 2 mL, Injection, IV Push, Once, Stop date 06/09/20 20:06:00 EDT, STAT, Start date 06/09/20 20:06:00 EDT predniSONE, 3, Oral, Daily, # 15 tab(s), Refills(s) 0 Automated Diff B-Type Natriuretic Peptide Basic Metabolic Panel CBC w/ Auto Diff ECG 12 Lead Adult ED Cardiac Monitoring eGFR Extra SST Tube Oxygen Saturation Oxygen Therapy PT & PTT Saline Lock Insert Troponin 0 Hr. Troponin 3 Hr. Troponin 6 Hr. Troponin 9 Hr. XR Chest Single View Medications Administered Given DuoNeb 2.5 mg-0.5 mg/3 mL Soln-Inh, 3 mL, Inhalation methylPREDNISolone 125 mg preservative-free injection (SOLU-MEDROL), 125 mg, IV Push premix generic diluent 50 mL + magnesium additive 2 gram, IV Piggyback Disposition Plan Discharge Prescription List Prescriptions albuterol CFC free 90 mcg/inh Inh Aer w/Adapt 8 gm (Ventolin), 2 puff(s), Inhalation, QID Levaquin 750 mg Tab, 750 mg= 1 tab(s), Oral, Daily predniSONE 20 mg Tab, 3, Oral, Daily Follow-up With When Contact Information KIMBER LAM [address] [place] [address]- [facility] (1) Additional Instructions: Problem List/Past Medical History Ongoing Smoker Historical No qualifying data Medications Inpatient DuoNeb 2.5 mg-0.5 mg/3 mL Soln-Inh, 3 mL, Inhalation, Once magnesium additive + premix generic diluent 50 mL methylPREDNISolone 125 mg preservative-free injection (SOLU-MEDROL), 125 mg= 2 mL, IV Push, Once Home No active home medications Allergies Darvocet A500 (Not known) Imitrex (Not known) Keflex (Not known) Vicodin (Not known) Lab Results WBC: 6.7 E9/L (06/09/20 20:08:00) RBC: 4.2 E12/L Low (06/09/20 20:08:00) Hgb: 13.5 gm/dL (06/09/20 20:08:00) Hct: 40 % (06/09/20) MCV: 94.6 fL (06/09/20) MCH: 31.9 pg (06/09/20) MCHC: 33.7 gm/dL (06/09/20) RDW: 14.6 % High (06/09/20:08) Platelet: 252 E9/L (06/09/20) MPV: 9 fL (06/09/20) Neutro Auto: 57.3 % (06/09/20) Lymph Auto: 34.3 % (06/09/20) [place]entry Auto: 6.4 % (06/09/20) Eos Auto: 1.1 % (06/09/20) Basophil Auto: 0.9 % (06/09/20) Neutro Absolute: 3.9 E9/L (06/09/20) Lymph Absolute: 2.3 E9/L (06/09/20) Gentry Absolute: 0.4 E9/L (06/09/20) Eos Absolute: 0.1 E9/L (06/09/20) Basophil Absolute: 0.1 E9/L (06/09/20) PT: 11.5 second(s) (06/09/20:) INR: 1 (06/09/20) PTT: 37.2 second(s) High (06/09/20) Glucose Lvl: 109 mg/dL (06/09/20) BUN: 16 mg/dL (06/09/20) Creatinine: 1.2 mg/dL (06/09/20) eGFR: 47 mL/min/1.73 m2 Low (06/09/20) eGFR AA: 57 mL/min/1.73 m2 Low (06/09/20) BUN/Creat Ratio: 13 (10/13/20 20:08:00) Sodium Lvl: 138 mmol/L (06/09/20 20:08:00) Potassium Lvl: 3.6 mmol/L (06/09/20 20:08:00) Chloride: 111 mmol/L (06/09/20 20:08:00) CO2: 17 mmol/L Low (06/09/20 20:08:00) AGAP: 14 mEq/L (06/09/20 20:08:00) Calcium Lvl: 9.6 mg/dL (06/09/20 20:08:00) Troponin: 5.7 pg/mL Low (06/09/20 20:08:00) BNP: 37 pg/mL (06/09/20 20:08:00) Diagnostic Results XR Chest Single View * Preliminary * 06/09/20 20:51:43 NEGATIVE: No infiltrate, mass or other acute cardiopulmonary abnormality Read By: Blas Dumont DO EKG Results EC06/09/20: SINUS RHYTHM NONSPECIFIC ST & T-WAVE ABNORMALITY Sinus rhythm rate of 72 [place] is normal no ectopy no ST elevation BORDERLINE ECG Signed By: Blas Dumont DO 06/09/2020 20:25:09 Normal [facility] Comment on above: Result Comment: Elec tronically Signed By: Blas Dumont DO\.br\Date and Time Signed: 06/09/20 22:03 EDT ED Patient Education Noteon 06-10-2020 ED Patient Education Note Normal [facility] ED Patient Summaryon 020 ED Patient Summary (Inserted Image. Roxane ble to display) [place] [id number] Patient Discharge Instructions Person Information Name: STEPHANI FERMIN Age: 54 Years Arrival Date: 06/09/2020 19:51:06 Discharge Diagnosis: COPD exacerbation Primary Care Physician: KIMBER LAM DO Provider Information Primary Provider: Blas Dumont DO Advanced [employer] Operator Helper:None The exam and treatment you received in the Emergency Department were for an urgent problem and are not intended as complete care. It is important that you follow up with a doctor, nurse practitioner, or physician?s day care assistant for ongoing care. If your symptoms become worse or you do not improve as expected and you are unable to reach your usual health care provider, you should return to the Emergency Department. We are available 24 hours a day. STEPHANI FERMIN has been given the following list of patient education materials, prescriptions and follow-up instructions: Follow-up Instructions: With: Address: When: KIMBER LAM [address] [place] [address] Business (1) In 3 days In the event that this physician does not participate in your insurance network, please consult with your insurance company to find a nearby participating provider. Patient Education Materials: A MESSAGE TO ALL PATIENTS REGARDING OPIOIDS PRESCRIPTION OPIOIDS: WHAT YOU NEED TO KNOW Prescription opioids can be used to help relieve frowboat-fk-ncnetd pain and are often prescribed following a surgery or injury, or for certain health conditions. These medications can be an important part of the treatment but also come with serious risks. It is important to work with your healthcare provider to make sure you are getting the safest, most effective care. WHAT ARE THE RISKS AND SIDE EFFECTS OF OPIOID USE? Prescription opioids carry serious risks of addiction and overdose, especially with prolonged use. An opioid overdose, often marked by slowed breathing, can cause sudden . The use of prescription opioids can have a number of side effects as well, even when taken as directed: ? Tolerance?meaning you might need to take more of the medication for the same pain relief ? Physical dependence?meaning you have symptoms of withdrawal when a medication is stopped ? Increased sensitivity to pain ? Constipation ? Nausea, vomiting, and dry mouth ? Sleepiness and dizziness ? Confusion ? Depression ? Low levels of testosterone that can result in lower sex drive, energy, and strength ? Itching and sweating RISKS ARE GREATER WITH: ? History of drug misuse, substance use disorder, or overdose ? Mental health conditions (such as depression or anxiety) ? Sleep apnea ? Older age (65 years and older) ? Avoid alcohol while taking prescription opioids. Also, unless specifically advised by your health care provider, medications to avoid include: ? Benzodiazepines (such as Xanax or Valium) ? Muscle relaxants (such as Soma or Flexeril) ? Hypnotics (such as Ambien or Lunesta) ? Other prescription opioids KNOW YOUR OPTIONS Talk to your health care provider about ways to manage your pain that don?t involve prescription opioids. Some of these options may actually work better and have fewer risks and side effects. Options may include: ? Pain relievers such as acetaminophen, ibuprofen, and naproxen ? Some medication that are also used for depression or seizures ? Physical therapy and exercise ? Cognitive behavioral therapy, a psychological, goal-directed approach, in which patients learn how to modify physical, behavioral, and emotional triggers of pain and stress. IF YOU ARE PRESCRIBED OPIOIDS FOR PAIN: ? Never take opioids in greater amounts or more often than prescribed. ? Follow up with your primary health care provider. o Work together to create a plan on how to manage your pain. o Talk about ways to help manage your pain that don?t involve prescription opioids. o Talk about any and all concerns and side effects. ? Help prevent misuse and abuse o Never sell or share prescription opioids. o Never use another person?s prescription opioids. ? Store prescription opioids in a secure place and out of reach of others (this may include visitors, children, friends, and family). ? Safely dispose of unused prescription opioids: Find your community drug take-back program or your pharmacy mail-back program, or flush them down the toilet, following guidance from the Food and Drug Administration (www.fda.gov/Drugs/Resourc esForYou). ? Visit www.cdc.gov/drugoverdose to learn about the risks of opioids abuse and overdose. ? If you believe you may be struggling with addiction, tell your health rn primary care and ask for guidance or call [facility] National Helpline at 4-625-235-URNU. v Source: US Department of Health and Human Services/Center for Disease Control & Prevention [facility] Medications Given: Medication Dose Route albuterol-ipratropium 3.00 mL Inhalation methylPREDNISolone 125.00 mg IV Push Right Antecubit Ta magnesium sulfate 2.00 gram IV Piggyback Right Antecubit Ta levofloxacin 500.00 mg Oral Medication Information: New Medications Printed Prescriptions albuterol (albuterol CFC free 90 mcg/inh Inh Aer w/Adapt 8 gm (Ventolin)) 2 Puffs Inhalation 4 times a day. Refills: 0. levofloxacin (Levaquin 750 mg Tab) 1 Tablets By Mouth every day for 7 Days. Refills: 0. predniSONE (predniSONE 20 mg Tab) 3 By Mouth every day. Refills: 0. Comment: Pharmacy Information: Thank you for choosing [facility] Patient Education Materials: ZANDER Hernandez BELINDA J , have received the following patient education materials/instructions and have verbalized understanding: Patient Education Materials: Follow-up Instructions: With: Address: When: KIMBER LAM [address] [place] [address] Business (1) In 3 days Patient Signature __ Date Clinician/Nurse Signature Date 06/09/2020 22:16:34 [facility] XR Chest Single Viewon 06-10 XR Chest Single View Exam Date/Time: 06/09/2020 20:50 EDT Reason for Exam: Chest pain Report IMPRESSION: NO EVIDENCE OF ACTIVE CHEST DISEASE. CLINICAL HISTORY: Chest pain. Short of breath. COMMENT: AP portable. The heart is normal in size. The mediastinum is unremarkable. The lungs appear hyperinflated. No infiltration nor pleural effusion is evident. There are old healed rib fractures on the left. FINAL REPORT Dictated: 06/10/2020 8:00 am King Arzola M.D. Signed (Electronic Signature): 06/10/2020 8:00 am Signed by: King Arzola M.D. Transcribed by: DOMINICK Technologist: NICCI [facility] Auto Diffon 06-09-2020 Basophils/100 WBC (Bld) 0.9 % Normal 0.0-2.0 F [facility] Comment on above: Order Comment: Order Added by Discern Expert. Performed By: #### 2 040807, 8473268, [id number], 4366491, 07352736, 50476970, [id number] #### [facility] [address] [place] [address] Basophils/Leukocytes Auto (Bld) [Pure # fraction] 0.1 E9/L Normal 0.0-0.2 [facility] Comment on above: Order Comment: Order Added by Discern Expert. Performed By: #### 2 116305, 7009116, 49940333, 6687466, 61002388, 72506729, 33741914 #### [facility] [address] [place] [address] Eosinophils/100 WBC (Bld) 1.1 % Normal 0.0-8.0 [facility] Comment on above: Order Comment: Order Added by Discern Expert. Performed By: #### 2 869343, 6280441, 98785602, 7385331, 74301041, 21846177, 47439560 #### [facility] [address] [place] [address] Eosinophils/Leukocytes Auto (Bld) [Pure # fraction] 0.1 E9/L Normal 0.0-0.5 [facility] Comment on above: Order Comment: Order Added by Discern Expert. Performed By: #### 2 109747, 0015467, 23687474, 6901439, 36962537, 66338660, 32720920 #### [facility] [address] [place] [address] Lymphocytes/100 WBC (Bld) 34.3 % Normal 14.0-50.0 [facility] Comment on above: Order Comment: Order Added by Discern Expert. Performed By: #### 2 781251, 5325674, 57681749, 6456440, 19045446, 57194887, 93659242 #### [facility] [address] [place] [address] Lymphocytes/Leukocytes Auto (Bld) [Pure # fraction] 2.3 E9/L Normal 1.0-4.0 [facility] Comment on above: Order Comment: Order Added by Discern Expert. Performed By: #### 2 911192, 0296161, 94734879, 0921105, 80219630, 13512165, 75481707 #### [facility] [address] [place] [address] Monocytes/100 WBC (Bld) 6.4 % Normal 4.0-14.0 [facility] Comment on above: Order Comment: Order Added by Discern Expert. Performed By: #### 2 780570, 4104470, 00507991, 0842264, 31532073, 72617854, 37185939 #### [facility] [address] [place] [address] Monocytes/Leukocytes Auto (Bld) [Pure # fraction] 0.4 E9/L Normal 0.2-1.0 [facility] Comment on above: Order Comment: Order Added by Discern Expert. Performed By: #### 2 482796, 1092970, 07261343, 1798151, 39012510, 61140495, 90018673 #### [facility] [address] [place] [address] Neutrophils/100 WBC (Bld) 57.3 % Normal 36.0-75.0 [facility] Comment on above: Order Comment: Order Added by Discern Expert. Performed By: #### 2 747164, 7279602, 41352891, 2041259, 58318320, 91374087, 87491914 #### [facility] [address] [place] [address] Neutrophils/Leukocytes Auto (Bld) [Pure # fraction] 3.9 E9/L Normal 2.0-7.5 [facility] Comment on above: Order Comment: Order Added by Discern Expert. Performed By: #### 2 146301, 6435398, 15318173, 0125834, 08582784, 75785716, 65394165 #### [facility] [address] [place] [address] BMPon 06-09-2020 Creatinine [Mass/Vol] 1.2 mg/dL Normal 0.5-1.3 [facility] Comment on above: Performed By: #### 2 158658, 3712810, 54370348, 1640118, 29773197, 55633557, 04436952 #### [facility] [address] [place] [address] Urea nitrogen [Mass/Vol] 16 mg/dL Normal 5-21 [facility] Comment on above: Performed By: #### 2 034588, 2984293, 67992065, 6203143, 41049863, 99352743, 05197938 #### [facility] [address] [place] [address] Urea nitrogen/Creatinine [Mass ratio] 13 No Units Normal 10-20 [facility] Comment on above: Performed By: #### 2 207467, 9327055, 78818338, 1889854, 21295646, 87865583, 70891008 #### [facility] [address] [place] [address] Anion gap [Moles/Vol] 14 mmol/L Normal 6-16 [facility] Comment on above: Performed By: #### 2 254008, 0078508, 78401433, 7206059, 76991905, 92690531, 50237652 #### [facility] [address] [place] [address] Calcium [Mass/Vol] 9.6 mg/dL Normal 8.9-11.1 [facility] Comment on above: Performed By: #### 2 998321, 2139161, 69734718, 0346366, 01018292, 41387762, 44393006 #### [facility] [address] [place] [address] Chloride [Moles/Vol] 111 mmol/L Normal 101-111 [facility] Comment on above: Performed By: #### 2 405659, 9864922, 57766015, 5317175, 43275401, 23289930, 36718496 #### [facility] [address] [place] [address] CO2 [Moles/Vol] 17 mmol/L Low 21-31 [facility] Comment on above: Performed By: #### 2 861600, 4766595, 64479583, 0659825, 18097122, 68920825, 65928559 #### [facility] [address] [place] [address] Glucose [Mass/Vol] 109 mg/dL Normal 55-199 [facility] Comment on above: Result Comment: If t his glucose result represents a fasting glucose, interpretation should refer to the following reference range: 55-99 mg/dL Performed By: #### 2 286557, 7787977, 48495846, 3521740, 69117958, 53218412, 52420065 #### [facility] [address] [place] [address] Potassium [Moles/Vol] 3.6 mmol/L Normal 3.5-5.3 [facility] Comment on above: Performed By: #### 2 974515, 8800894, 53328950, 4132255, 59571894, 79672472, 18551882 #### [facility] [address] [place] [address] Sodium [Moles/Vol] 138 mmol/L Normal 135-145 [facility] Comment on above: Performed By: #### 2 221345, 9782077, 32302654, 1420029, 61421614, 33883309, 63803790 #### [facility] [address] [place] [address] BNPon 06-09-2020 Natriuretic peptide B (Bld) [Mass/Vol] Pass Normal [facility] Comment on above: Performed By: #### 2 929196, 7541167, 92298483, 3908299, 59095988, 66998504, 48638411 #### [facility] [address] [place] [address] Natriuretic peptide B (Bld) [Mass/Vol] 37 pg/mL Normal 5-80 [facility] Comment on above: Performed By: #### 2 943676, 2795709, 95856425, 3196781, 81842501, 96793841, 46099104 #### [facility] [address] [place] [address] CBC w/ Auto Diffon Erythrocyte distribution width (RBC) [Ratio] 14.6 % High 10.9-14.2 [facility] Comment on above: Performed By: #### 2 512613, 8555991, 19588393, 7082778, 02056113, 46344683, 44925253 #### [facility] [address] [place] [address] Hematocrit (Bld) [Volume fraction] 40.0 % Normal 34.0-46.0 [facility] Comment on above: Performed By: #### 2 880146, 5386048, 68210614, 9968783, 47994611, 72431466, 24250780 #### [facility] [address] [place] [address] Hemoglobin (Bld) [Mass/Vol] 13.5 g/dL Normal 12.0-16.0 [facility] Comment on above: Performed By: #### 2 814419, 4050148, 34966616, 9037598, 49163270, 96541746, 91060022 #### [facility] [address] [place] [address] MCH (RBC) [Entitic mass] 31.9 pg Normal 27.0-34.0 [facility] Comment on above: Performed By: #### 2 [id number], [id number], [id number], 7935184, [id number], [id number], [id number] #### [facility] [address] [place] [address] MCHC (RBC) [Mass/Vol] 33.7 g/dL Normal 31.4-36.0 [facility] Comment on above: Performed By: #### 2 735229, 6702819, [id number], 3455966, 39052153, 25500056, [id number] #### [facility] [address] [place] [address] MCV (RBC) [Entitic vol] 94.6 fL Normal 80.0-100.0 F [facility] Comment on above: Performed By: #### 2 708149, 8501676, 28463271, 1759155, 49677978, 29447249, [id number] #### [facility] [address] [place] [address] Platelet mean volume (Bld) [Entitic vol] 9.0 fL Normal 6.4-10.8 [facility] Comment on above: Performed By: #### 2 008350, 4805265, 86341371, 7909790, 48961224, 81794459, 55654980 #### [facility] [address] [place] [address] Platelets (Bld) [#/Vol] 252.0 E9/L Normal 150. 0-500. 0 [facility] Comment on above: Performed By: #### 2 432701, 0508356, 31165857, 1013131, 25851871, 97561548, 76489886 #### [facility] [address] [place] [address] RBC (Bld) [#/Vol] 4.2 E12/L Low 4.3-5.9 [facility] Comment on above: Performed By: #### 2 499914, 5244983, 10465624, 3867187, 87316940, 93968102, 29192151 #### [facility] [address] [place] [address] WBC corrected for nucl RBC Auto (Bld) [#/Vol] 6.7 E9/L Normal 4.0-11.0 [facility] Comment on above: Performed By: #### 2 159519, 0233639, 75380385, 5243175, 05976892, 13276989, 66723055 #### [facility] [address] [place] [address] Consent for Treatmenton 05-28 Consent for Treatment [id number] Normal [facility] PT & PTTon 06-09-2020 aPTT Coag (PPP) [Time] 37.2 second(s) High 25.1-36.5 [facility] Comment on above: Result Comment: Hepa rin therapeutic range (represented by Anti-Factor Xa activity of 0.2 - 0.4 U/mL) corresponds to PTT of 56.6 - 109.0 sec. Performed By: #### 2 974015, 0825265, 82172223, 4658146, 20807695, 66499222, 69579741 #### [facility] [address] [place] [address] INR Coag (PPP) [Relative time] 1.0 {INR} [facility] Comment on above: Result Comment: INR results are specifically intended to assess patients stabilized on long-term Anticoagulation therapy suggested INR?s ?Less Intensive Anticoagulation? 2.0 ? 3.0 Conventional Range 3.0 ? 4.5 Performed By: #### 2 609801, 3331233, 95176029, 8176371, 96814009, 69103145, 78433813 #### [facility] [address] [place] [address] PT Coag (PPP) [Time] 11.5 second(s) Normal 10.2-12.9 [facility] Comment on above: Performed By: #### 2 496510, 4921964, 19918886, 9963275, 88836128, 99273532, 93422352 #### [facility] [address] [place] [address] Troponin 0 Hr.on 06-09-2020 Troponin I.cardiac [Mass/Vol] 5.70 pg/mL Low 10.10-27.1 0 [facility] Comment on above: Result Comment: The 95% CI (Confidence Interval) PPV (Positive Predictive Value) for myocardial infarction in females is 38 pg/mL, in males 51 pg/mL. The results should be used in conjunction with clinical conditions of myocardial infarction. (Access High Sensitivity Troponin I Instructions For Use, Humberto Shabbir, March 2018) Performed By: #### 2 146921, 7836484, 44505957, 6789546, 67483584, 08506019, [id number] #### [facility] [address] [place] [address] eGFRon 06-09-2020 GFR/1.73 sq M predicted among blacks MDRD (S/P/Bld) [Vol rate/Area] 57 mL/min/1.73 m2 Low >=59 [facility] Comment on above: Order Comment: Order added by Discern Expert. Result Comment: eGFR is race adjusted. AA=. Performed By: #### 2 595631, 2212754, 07012881, 5267123, 26567421, 59992273, 52464374 #### [facility] [address] [place] [address] GFR/1.73 sq M predicted among non-blacks MDRD (S/P/Bld) [Vol rate/Area] 47 mL/min/1.73 m2 Low >=59 [facility] Comment on above: Order Comment: Order added by Discern Expert. Result Comment: Senior Assistant Manager kelli kidney disease could be indicated at eGFR's of less than 60 mL/min/1.73m2. Kidney failure is indicated at less than 15 mL/min/1.73m2. Performed By: #### 2 440361, 1985991, 84214131, 7706718, 86724203, 28240934, 67607689 #### [facility] [address] [place] [address] Creatinineon 06-27-2017 Creatinine 1.06 mg/dL High 0.50-1.05 [facility] Comment on above: Performed By: #### 1 280638 ####[facility] [address] [place] [address] eGFR (MDRD) 54 mL/min/{1.73_m2} Normal [facility] Comment on above: Result Comment: Inte rpretation for Chronic Kidney Disease:Stages 1&2 >60 Healthy or potential kidney damage.Mild decrease of GFR.Stage 3 30-59 Moderate decrease of GFR.Stage 4 15-29 Severe decrease of GFR.Stage 5 <15 Kidney failure or on dialysis. Performed By: #### 1 [id number] ####[facility] [address] [place] [address] Electrolyte Panelon 06-27-20 17 Anion gap 9 mmol/L Low 10-20 [facility] Comment on above: Performed By: #### 1 543862 ####[facility] [address] [place] [address] Bicarbonate (HCO3) 25 mmol/L Normal 21-32 [facility] Comment on above: Performed By: #### 1 759266 ####[facility] [address] [place] [address] Chloride 109 mmol/L High 98-107 [facility] Comment on above: Performed By: #### 1 139299 ####[facility] [address] [place] [address] Potassium molar conc 3.9 mmol/L Normal 3.5-5.1 [facility] Comment on above: Performed By: #### 1 086459 ####[facility] [address] [place] [address] Sodium 139 mmol/L Normal 136-145 [facility] Comment on above: Performed By: #### 1 674730 ####[facility] [address] [place] [address] Urea Nitrogenon 06-27-2017 Urea nitrogen 10 mg/dL Normal 6-23 [facility] Comment on above: Performed By: #### 1 555829 ####[facility] [address] [place] [address] Vital Signs Date Time Vital Sign Value Performing Clinician Facility 12-26-2023 14:46-0400 Body height 152.4 cm King Duke DO Work Phone: [facility] 12-26-2023 14:46-0400 Body mass index (BMI) [Ratio] 21.29 kg/m2 King Duke DO Work Phone: [facility] 12-26-2023 14:46-0400 Body weight 49.44 kg King Duke DO Work Phone: [facility] 12-26-2023 14:46-0400 Diastolic blood pressure 92 mm[Hg] King Duke DO Work Phone: [facility] 12-26-2023 14:46-0400 Heart rate 64 /min King Duke DO Work Phone: [facility] 12-26-2023 14:46-0400 Systolic blood pressure 158 mm[Hg] King Duke DO Work Phone: [facility] 12-18-2023 13:42-0400 Body height 157.48 cm [facility] 12-18-2023 13:42-0400 Body mass index (BMI) [Ratio] 19.7 kg/m2 [facility] 12-18-2023 13:42-0400 Body weight 48.98 kg [facility] 12-18-2023 13:42-0400 Diastolic blood pressure 77 mm[Hg] [facility] 12-18-2023 13:42-0400 Heart rate 76 /min [facility] 12-18-2023 13:42-0400 Systolic blood pressure 128 mm[Hg] [facility] 10-24-2023 14:21-0500 Body height 157.48 cm [facility] 10-24-2023 14:21-0500 Body mass index (BMI) [Ratio] 19.9 kg/m2 [facility] 10-24-2023 14:21-0500 Body weight 49.44 kg [facility] 10-24-2023 14:21-0500 Diastolic blood pressure 65 mm[Hg] [facility] 10-24-2023 14:21-0500 Systolic blood pressure 119 mm[Hg] [facility] 10-05-2023 15:00-0500 Body height 152.4 cm Adeline Bianka DO Work Phone: [facility] 10-05-2023 15:00-0500 Body mass index (BMI) [Ratio] 21.68 kg/m2 Adeline Bianka DO Work Phone: [facility] 10-05-2023 15:00-0500 Body weight 50.35 kg Adeline Bianka DO Work Phone: [facility] 10-05-2023 15:00-0500 Diastolic blood pressure 76 mm[Hg] Adeline Bianka DO Work Phone: [facility] 10-05-2023 15:00-0500 Heart rate 80 /min Adeline Bianka DO Work Phone: [facility] 10-05-2023 15:00-0500 SaO2% (BldA) [Mass fraction] 98 % Adeline Bianka DO Work Phone: [facility] 10-05-2023 15:00-0500 Systolic blood pressure 133 mm[Hg] Adeline Bianka DO Work Phone: [facility] 09-20-2023 13:00-0500 Body height 157.48 cm [facility] 09-20-2023 13:00-0500 Body weight 48.98 kg [facility] 08-11-2023 11:30-0500 Diastolic blood pressure 64 mm[Hg] CAFETERIA TABLE ATTENDANT-C Maria Teresa Rojo Work Phone: [facility] 08-11-2023 11:30-0500 Heart rate 71 /min CAFETERIA TABLE ATTENDANT-C Maria Teresa Rojo Work Phone: [facility] 08-11-2023 11:30-0500 Respiratory rate 20 /min CAFETERIA TABLE ATTENDANT-C Maria Teresa Rojo Work Phone: [facility] 08-11-2023 11:30-0500 SaO2% (BldA) [Mass fraction] 98 % CAFETERIA TABLE ATTENDANT-C Maria Teresa Rojo Work Phone: [facility] 08-11-2023 11:30-0500 Systolic blood pressure 108 mm[Hg] CAFETERIA TABLE ATTENDANT-C Maria Teresa Doddson Work Phone: [facility] 08-11-2023 10:18-0500 Body height 152.4 cm CAFETERIA TABLE ATTENDANT-C Maria Teresa Doddson Work Phone: [facility] 08-11-2023 10:18-0500 Body weight 49.89 kg CAFETERIA TABLE ATTENDANT-C Maria Teresa Doddson Work Phone: [facility] 08-01-2023 10:54-0500 Body height 152.4 cm [facility] Work Phone: [facility] 08-01-2023 10:54-0500 Body weight 49.89 kg [facility] Work Phone: [facility] 06-26-2023 13:33-0400 Body height 152.4 cm Danya Newsome FIRE PREVENTION OFFICER-WORSHIP PASTOR Work Phone: [facility] 06-26-2023 13:33-0400 Body mass index (BMI) [Ratio] 21.48 kg/m2 Danya Newsome FIRE PREVENTION OFFICER-WORSHIP PASTOR Work Phone: [facility] 06-26-2023 13:33-0400 Body weight 49.9 kg Danya Newsome FIRE PREVENTION OFFICER-WORSHIP PASTOR Work Phone: [facility] 06-26-2023 13:33-0400 Diastolic blood pressure 62 mm[Hg] Danya Newsome FIRE PREVENTION OFFICER-WORSHIP PASTOR Work Phone: [facility] 06-26-2023 13:33-0400 Heart rate 80 /min Danya Newsome FIRE PREVENTION OFFICER-WORSHIP PASTOR Work Phone: [facility] 06-26-2023 13:33-0400 Systolic blood pressure 132 mm[Hg] Danya Newsome FIRE PREVENTION OFFICER-WORSHIP PASTOR Work Phone: [facility] 02-26-2023 19:49-0400 Diastolic blood pressure 83 mm[Hg] [employer] [facility] Work Phone: [facility] 02-26-2023 19:49-0400 Heart rate 105 /min [place] [facility] Work Phone: [facility] 02-26-2023 19:49-0400 Respiratory rate 18 /min [facility] Work Phone: [facility] 02-26-2023 19:49-0400 SaO2% (BldA) [Mass fraction] 96 % [place] [facility] Work Phone: [facility] 02-26-2023 19:49-0400 Systolic blood pressure 161 mm[Hg] [place] Work Phone: [facility] 02-26-2023 18:05-0400 Body height 152.4 cm [place] [facility] Work Phone: [facility] 02-26-2023 18:05-0400 Body temperature 97.6 [degF] [facility] Work Phone: [facility] 02-26-2023 18:05-0400 Body weight 51.7 kg [place] [facility] Work Phone: [facility] 02-18-2023 19:34-0400 Body height 152.4 cm [facility] Work Phone: [facility] 02-18-2023 19:34-0400 Body temperature 98.6 [degF] [facility] Work Phone: [facility] 02-18-2023 19:34-0400 Body weight 51.5 kg [facility] Work Phone: [facility] 02-18-2023 19:34-0400 Diastolic blood pressure 85 mm[Hg] [facility] Work Phone: [facility] 02-18-2023 19:34-0400 Heart rate 111 /min [facility] Work Phone: [facility] 02-18-2023 19:34-0400 Respiratory rate 24 /min [facility] Work Phone: [facility] 02-18-2023 19:34-0400 SaO2% (BldA) [Mass fraction] 96 % [facility] Work Phone: [facility] 02-18-2023 19:34-0400 Systolic blood pressure 163 mm[Hg] [facility] Work Phone: [facility] 02-14-2023 14:00-0400 Body height 152.4 cm [facility] Work Phone: [facility] 02-14-2023 14:00-0400 Body weight 52.61 kg [place] Work Phone: [facility] 02-14-2023 13:56-0400 Diastolic blood pressure 72 mm[Hg] [place] Work Phone: [facility] 02-14-2023 13:56-0400 Heart rate 67 /min [place] Work Phone: [facility] 02-14-2023 13:56-0400 Systolic blood pressure 147 mm[Hg] [facility] Work Phone: [facility] 02-14-2023 00:00-0400 75 1 Maria Teresa Chowdhury Work Phone: [facility] [address] DO Work Phone: Comment on above: [id number] 01-20-2023 11:00-0400 Body height 157.48 cm Jigar Klein Other [facility] [employer] Other 01-20-2023 11:00-0400 Body mass index (BMI) [Ratio] 20.3 kg/m2 Jigar Klein Other [facility] [employer] Other 01-20-2023 11:00-0400 Body weight 50.35 kg Jigar Klein Other [facility] [employer] Other 10-26-2022 12:50-0500 Diastolic blood pressure 68 mm[Hg] [facility] Work Phone: [facility] 10-26-2022 12:50-0500 Heart rate 61 /min [facility] Work Phone: [facility] 10-26-2022 12:50-0500 Respiratory rate 16 /min [facility] Work Phone: [facility] 10-26-2022 12:50-0500 SaO2% (BldA) [Mass fraction] 99 % [facility] Work Phone: [facility] 10-26-2022 12:50-0500 Systolic blood pressure 114 mm[Hg] [facility] Work Phone: [facility] 10-26-2022 10:59-0500 Body height 152.4 cm [place] [facility] Work Phone: [facility] 10-26-2022 10:59-0500 Body temperature 98.1 [degF] [facility] Work Phone: [facility] 10-26-2022 10:59-0500 Body weight 48.98 kg [place] [facility] Work Phone: [facility] 09-15-2022 15:20-0500 Body height 157.48 cm Sg Barroso Other [facility] [employer] Other 09-15-2022 15:20-0500 Body mass index (BMI) [Ratio] 19.39 kg/m2 Sg Barroso Other [employer] Other 09-15-2022 15:20-0500 Body temperature 97.4 [degF] Sg Barroso Other [employer] Other 09-15-2022 15:20-0500 Body weight 48.08 kg Sg Barroso Other [employer] Other 09-15-2022 15:20-0500 Diastolic blood pressure 82 mm[Hg] Sg Barroso Other [employer] Other 09-15-2022 15:20-0500 Respiratory rate 20 /min Sg Barroso Other [employer] Other 09-15-2022 15:20-0500 SaO2% (BldA) [Mass fraction] 97 % Sg Barroso Other [employer] Other 09-15-2022 15:20-0500 Systolic blood pressure 160 mm[Hg] Sg Barroso Other [employer] Other 03-16-2022 14:36-0400 Body height 154.94 cm Maria Teresa Chowdhury Work Phone: [employer] DO Work Phone: 03-16-2022 14:36-0400 Body mass index (BMI) [Ratio] 20.78 kg/m2 Maria Teresa Chowdhury Work Phone: [employer] DO Work Phone: 03-16-2022 14:36-0400 Body surface area Derived from formula 1.47 m2 Maria Teresa Chowdhury Work Phone: [facility] [address] DO Work Phone: 03-16-2022 14:36-0400 Body weight 49.9 kg Maria Teresa Chowdhury Work Phone: [facility] [address] DO Work Phone: 03-16-2022 14:36-0400 Diastolic blood pressure 70 mm[Hg] Maria Teresa Chowdhury Work Phone: [facility] [address] DO Work Phone: 03-16-2022 14:36-0400 Heart rate 88 /min Maria Teresa Chowdhury Work Phone: [facility] [address] DO Work Phone: 03-16-2022 14:36-0400 Systolic blood pressure 124 mm[Hg] Maria Teresa Chowdhury Work Phone: [facility] [employer] DO Work Phone: 02-17-2022 15:00-0400 Body height 157.48 cm [employer] Dharmesh Other [employer] Other 02-17-2022 15:00-0400 Body mass index (BMI) [Ratio] 20.74 kg/m2 Sg Barroso Other [employer] Other 02-17-2022 15:00-0400 Body temperature 96.3 [degF] Sg Barroso Other [employer] Other 02-17-2022 15:00-0400 Body weight 51.44 kg [employer] Barroso Other [employer] Other 02-17-2022 15:00-0400 Diastolic blood pressure 81 mm[Hg] Sg Barroso Other [employer] Other 02-17-2022 15:00-0400 Respiratory rate 20 /min Sg Barroso Other [employer] Other 02-17-2022 15:00-0400 SaO2% (BldA) [Mass fraction] 98 % Sg Barroso Other [employer] Other 02-17-2022 15:00-0400 Systolic blood pressure 138 mm[Hg] Sg Barroso Other [employer] Other 11-04-2021 15:20-0500 Body height 157.48 cm Sg Barroso Other [employer] Other 11-04-2021 15:20-0500 Body mass index (BMI) [Ratio] 22.2 kg/m2 Sg Barroso Other [employer] Other 11-04-2021 15:20-0500 Body temperature 96.7 [degF] Sg Barroso Other [employer] Other 11-04-2021 15:20-0500 Body weight 55.07 kg Sg Barroso Other [employer] Other 11-04-2021 15:20-0500 Diastolic blood pressure 78 mm[Hg] Sg Barroso Other [employer] Other 11-04-2021 15:20-0500 Respiratory rate 18 /min Sg Barroso Other [employer] Other 11-04-2021 15:20-0500 SaO2% (BldA) [Mass fraction] 97 % Sg Barroso Other [facility] [employer] Other 11-04-2021 15:20-0500 Systolic blood pressure 142 mm[Hg] Sg Barroso Other [facility] [employer] Other 09-22-2021 13:29-0500 Diastolic blood pressure 88 mm[Hg] Maria Teresa Chowdhury Work Phone: [facility] [employer] [address] DO Work Phone: 09-22-2021 13:29-0500 Systolic blood pressure 144 mm[Hg] Maria Teresa Chowdhury Work Phone: [facility] [employer] [address] DO Work Phone: 09-22-2021 13:25-0500 Body height 154.94 cm Maria Teresa Chowdhury Work Phone: [facility] [employer] [address] DO Work Phone: 09-22-2021 13:25-0500 Body mass index (BMI) [Ratio] 22.11 kg/m2 Maria Teresa Chowdhury Work Phone: [facility] [address] DO Work Phone: 09-22-2021 13:25-0500 Body surface area Derived from formula 1.5 m2 Maria Teresa Chowdhury Work Phone: [facility] [address] DO Work Phone: 09-22-2021 13:25-0500 Body weight 53.07 kg Maria Teresa Chowdhury Work Phone: [facility] [address] DO Work Phone: 09-22-2021 13:25-0500 Diastolic blood pressure 88 mm[Hg] Maria Teresa Chowdhury Work Phone: [facility] [employer] [address] DO Work Phone: 09-22-2021 13:25-0500 Heart rate 88 /min Maria Teresa Chowdhury Work Phone: [facility] [address] DO Work Phone: 09-22-2021 13:25-0500 Systolic blood pressure 151 mm[Hg] Maria Teresa Chowdhury Work Phone: [facility] [address] DO Work Phone: Encounters Encounter Date Encounter Type Care Provider Facility Start: 02-08-2024 End: 02-08-2024 ambulatory ADELINE CARLTON Not Available Start: 12-26-2023 End: 12-26-2023 ambulatory [facility] Ambulatory Start: 12-26-2023 End: 12-26-2023 Office outpatient visit 25 minutes [facility] DO Work Phone: [facility] Comment on above: Chronic obstructive pulmonary disease, unspecified COPD type (Multi); Atherosclerosis of rincon coronary artery of rincon heart without angina pectoris; Essential hypertension; Mixed hyperlipidemia; PVD (peripheral vascular disease) ([facility]); History of AK (myocardial infarction); History of PTCA; Current smoker; BMI 21.0-21.9, adult Start: 12-21-2023 Transcribe Orders Jigar shirley APRN-WORSHIP PASTOR Work Phone: [facility] Start: 12-18-2023 End: 12-18-2023 ambulatory [facility] Work Phone: Start: 12-18-2023 End: 12-18-2023 Patient encounter procedure [facility] Work Phone: Start: 10-24-2023 End: 10-24-2023 Patient encounter procedure [facility] Work Phone: Start: 2023 Telephone encounter Adeline wilson DO Work Phone: [facility] Start: 10-05-2023 End: 10-05-2023 Office outpatient visit 25 minutes Adeline Carlton DO Work Phone: [facility] Comment on above: Chronic obstructive pulmonary disease, unspecified COPD type (CMS/HCC); Cigarette smoker Start: 10-05-2023 End: 10-05-2023 ambulatory ADELINE CARLTON Not Available Start: 10-05-2023 Bamboo flowsheet Adeline K Stra ck DO Work Phone: [facility] Start: 10-05-2023 Bamboo flowsheet Adeline K Stra ck DO Work Phone: [facility] Start: 10-04-2023 Chart abstracting Adeline Figueroa Str ack DO Work Phone: [facility] Start: 09-20-2023 End: 09-20-2023 Patient encounter procedure [facility]- Start: 08-22-2023 End: 08-22-2023 ambulatory Maria Teresa Rojo Facility:[facility] Start: 08-22-2023 End: 08-22-2023 ambulatory CAFETERIA TABLE ATTENDANT-C Maria Teresa Rojo Work Phone: [facility] Work Phone: Start: 08-22-2023 End: 08-22-2023 Patient encounter procedure JANNET-Daily Rojo Work Phone: [facility] Work Phone: Start: 08-11-2023 End: 08-11-2023 ambulatory Anderson Espino Facility:[facility] Start: 08-11-2023 End: 08-11-2023 Admission to same day surgery center CAFETERIA TABLE ATTENDANT-Daily Rojo Work Phone: [facility] Work Phone: Start: 08-11-2023 End: 08-11-2023 ambulatory CAFETERIA TABLE ATTENDANT-Daily Rojo Work Phone: [facility] Work Phone: Start: 08-01-2023 End: 08-01-2023 ambulatory Jigar Klein Facility:[facility] Start: 08-01-2023 End: 08-01-2023 ambulatory [place] [facility] Work Phone: [facility] Work Phone: Start: 08-01-2023 End: 08-01-2023 Patient encounter procedure [place] [facility] Work Phone: [facility] [place] Work Phone: Start: 07-03-2023 End: 07-03-2023 ambulatory Maria Teresa Rojo Facility:[facility] Start: 07-03-2023 End: 07-03-2023 ambulatory [facility] [employer] [facility] Work Phone: [facility] Work Phone: Start: 07-03-2023 End: 07-03-2023 Patient encounter procedure [facility] Work Phone: [facility] Main [place] Work Phone: Start: 06-26-2023 End: 06-26-[address] 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 Work Phone: [facility] Comment on above: Atherosclerosis of n ative coronary artery of rincon heart without angina pectoris (Primary Dx); Chronic obstructive pulmonary disease, unspecified COPD type (CMS/HCC); Essential hypertension; Mixed hyperlipidemia; PVD (peripheral vascular disease) ([facility]/HCC); Current smoker Start: 06-22-2023 End: 06-22-2023 ambulatory Sg Barroso Facility:[facility] Start: 06-22-2023 End: 06-22-2023 ambulatory [facility] Work Phone: [facility] Work Phone: Start: 06-22-2023 End: 06-22-2023 Patient encounter procedure [facility] Work Phone: [facility]-Lab Main [place] Work Phone: Start: 05-15-2023 End: 05-15-2023 ambulatory Alex Wade Facility:[facility] Start: 05-15-2023 End: 05-15-2023 Patient encounter procedure [facility] Work Phone: [facility]-Ultrasound Main [place] Work Phone: Start: 04-27-[address] King Duke Facility: Start: 03-06-2023 End: 03-06-2023 Emergency department [facility] visit [facility] Facility[facility] Start: 02-26-2023 End: 02-26-2023 Emergency department patient visit Earnest Crocker Gl[place] Facility:[facility] Start: 02-26-2023 End: 02-26-2023 Emergency department patient visit [facility] Work Phone: [facility]-Emergency Room Work Phone: Start: 02-18-2023 End: 02-18-2023 Emergency department patient visit Glen Zoraida Akins Facility:[facility] Start: 02-18-2023 End: 02-18-2023 Emergency department patient visit [facility] Work Phone: [facility]-Emergency Room Work Phone: Start: 02-14-[address] King rivera [facility] Facility:90 Start: 02-14-2023 End: 02-14-2023 ambulatory [facility] Work Phone: [facility] Work Phone: Start: 02-14-2023 End: 02-14-2023 Patient encounter procedure [facility] Work Phone: [facility]-Nuc Med Main [place] Work Phone: Start: 02-08-2023 Rx Renewal Maria Teresa sanchez Work Phone: [facility] 250 DO Work Phone: Start: 01-20-2023 End: 01-20-2023 ambulatory Jigar Latoya Other [facility] Other Start: 01-20-2023 Patient encounter procedure Jigar Klein [facility] Start: 10-26-2022 End: 10-26-2022 ambulatory [facility] Facility[facility] Start: 10-26-2022 End: 10-26-2022 Admission to same day surgery center [facility] Work Phone: [facility]Digestive [facility] Work Phone: Start: 10-26-2022 End: 10-26-2022 ambulatory [facility] Work Phone: [facility] Work Phone: Start: 09-15-2022 End: 09-15-2022 ambulatory Sg Goodashi Other [facility] Other Start: 09-15-2022 Office outpatient vi sit 25 minutes Essam Elashi [facility] Start: 08-05-2022 End: 08-05-2022 ambulatory [facility] Work Phone: [facility] Work Phone: Start: 08-05-2022 End: 08-05-2022 Patient encounter procedure [facility] Work Phone: [facility] Main [place] Start: 08-01-2022 End: 08-01-2022 ambulatory Anderson Espino Other [facility] Other Start: 08-01-2022 Telephone encounter Anderson WHITMAN [employer] Labourer Start: 04-19-2022 Chart Update Maria Teresa sanchez Work Phone: [facility] 250 DO Work Phone: Start: 03-16-2022 Office outpatient vi sit 40 minutes Maria Teresa Chowdhury Work Phone: [facility] 250 DO Work Phone: Start: 02-17-2022 End: 02-17-2022 ambulatory Sg Barroso Other [facility] [employer] Other Start: 02-17-2022 Office outpatient vi sit 15 minutes Sg Barroso [facility] Start: 01-31-2022 End: 01-31-2022 ambulatory Sg Barroso Other [facility] [employer] Other Start: 01-31-2022 Telephone encounter Sg Barroso [facility] Start: 11-09-2021 Rx Renewal Maria Teresa sanchez Work Phone: [facility] 250 DO Work Phone: Start: 11-04-2021 End: 11-04-2021 ambulatory Sg Barroso Other [facility] Other Start: 11-04-2021 Office outpatient vi sit 25 minutes Sg Barroso [facility] Start: 10-04-2021 AUDIT Maria Teresa sanchez Work Phone: [facility] 250 DO Work Phone: Start: 10-04-2021 Rx Renewal Maria Teresa sanchez Work Phone: [facility] 250 DO Work Phone: Start: 09-22-2021 Office outpatient vi sit 25 minutes Maria Teresa Chowdhury Work Phone: [facility] 250 DO Work Phone: Start: 08-19-2021 Rx Renewal Danya Jeronimo Smi FIRE PREVENTION OFFICER-WORSHIP PASTOR Work Phone: [facility] 250 DO Work Phone: Start: 08-17-2021 Rx Renewal King renae DO Work Phone: [facility] 250 DO Work Phone: Start: 06-21-2021 AUDIT King Macias batool DO Work Phone: [facility] [address] [place] Work Phone: Start: 06-27-2017 Ambulatory PROVIDER UNKNOWN Facili ty:[id number] Start: 06-20-2017 Ambulatory PROVIDER UNKNOWN Facili ty:[id number] Procedures Date Procedure Procedure Detail Performing Clinician Start: 12-26-2023 FOLLOW UP IN CARDIOLOGY DANYA NEWSOME Start: 08-22-2023 Dual energy X-ray absorptiometry CAFETERIA TABLE ATTENDANT-C Warren Rojo Work Phone: Start: 08-11-2023 Esophagogastroduodenoscopy CAFETERIA TABLE ATTENDANT-C Maria Teresa Rojo Work Phone: Start: 08-01-2023 Radionuclide imaging of liver and/or biliary tract using radioactive isotope [facility] Work Phone: Start: 06-24-2023 End: 06-29-2023 History of percutaneous transluminal coronary angioplasty History of PTCA Danya Newsome FIRE PREVENTION OFFICER-WORSHIP PASTOR Work Phone: Start: 06-22-2023 Lactoferrin measurement [facility] Work Phone: Start: 06-22-2023 Ova and Parasite Result 1 [employer] [facility] Work Phone: Start: 06-22-2023 Ova OR parasites identification [facility] Work Phone: Start: 06-22-2023 Screening for occult blood in feces [facility] Work Phone: Start: 06-22-2023 Stool culture for bacteria [employer] [facility] Dept Work Phone: Start: 05-15-2023 Ultrasonography of abdomen Kurt [facility] h Dept Work Phone: Start: 02-26-2023 Plain chest [facility]-ray [facility] Work Phone: Start: 02-26-2023 Respiratory Panel (PCR) Kurt Raymond [facility] D ept Work Phone: Start: 02-18-2023 Plain X-ray of left humerus Kurt Raymond [facility] Dept Work Phone: Start: 02-14-2023 Radionuclide myocardial perfusion stress study Kurt Raymond [facility] Dept Work Phone: Start: 10-26-2022 Screening colonoscopy Kurt [facility] Dep t Work Phone: Cervical biopsy King solis DO Work Phone: History of percutane ous transluminal coronary angioplasty History of PTCA King Duke DO Work Phone: History of percutane ous transluminal coronary angioplasty History of PTCA King Duke DO Work Phone: Operation on bladder King Duke DO Work Phone: Percutaneous translu unruly coronary angioplasty King Duke DO Work Phone: Removal of ectopic p regnancy from fallopian tube King Dkue DO Work Phone: Tonsillectomy Knig renae DO Work Phone: Total colonoscopy King cleveland DO Work Phone: Plan of Treatment Date Care Activity Detail Author Start: 06-04-2024 End: 06-04-2024 Patient encounter procedure 06/04/2024 1:50 PM EDT Office Visit [facility] [address] [facility] [address] [place] [address] King Duke DO [address] [facility] [address] [place] [address] [facility] Start: 04-28-2024 Influenza vaccination Influenz a Vaccine (Season Ended) [facility] Start: 02-25-2024 Influenza vaccination Influenza Vacc ine (#1) [facility] Comment on above: Postponed from 04/28 (Patient Refused) Start: 02-08-2024 End: 02-08-2024 Patient encounter procedure 02/08/2024 3:00 PM EDT Office Visit [facility] [address] [facility] [place] [address] Adeline Carlton, DO [address] [place] [address] [facility] Start: 12-26-2023 End: 12-26-2023 Patient encounter procedure 12/26/2023 2:30 PM EDT Office Visit [facility] [address] [place] [id number] King Duke DO [address] [facility] [address] [place] [address] [facility] Start: 12-18-2023 Patient referral [facility] Work Phone: Start: 10-05-2023 End: 10-05-2023 Patient encounter procedure [facility] Comment on above: Arrived Start: 08-11-2023 [facility] Start: 04-28-2023 COVID-19 Vaccine ( season) COVID-19 Vaccine ( season) [facility] Start: 04-28-2023 Influenza vaccination Influenza Vacc ine (#1) [facility] Start: 04-06-2023 FUV, Provider: King Duke, Status: Kamar, Time: 10:10 AM FUV, Provider: King Duke, Status: Kamar, Time: 10:10 AM [facility] 250 DO Work Phone: Start: 03-16-2023 FUV, Provider: King Duke, Status: Pen, Time: 11:20 AM FUV, Provider: King Duke, Status: Pen, Time: 11:20 AM -[facility] 250 DO Work Phone: Start: 02-14-2023 Radionuclide myocard ial perfusion stress study NM kenzie perf SPECT rest & str [facility] Start: 10-26-2022 [facility] Start: 04-18-2022 PVR, Provider: ALIYAH RUBY [facility] 01,[id number], Status: Pen, Time: 2:30 PM PVR, Provider: ARIS [facility] 01,[id number], Status: Pen, Time: 2:30 PM -[facility] 250 DO Work Phone: Start: 04-18-2022 CAROTID, Provider: ARIS [facility] 01,[id number], Status: Pen, Time: 1:30 PM CAROTID, Provider: ARIS [facility] 01,[id number], Status: Pen, Time: 1:30 PM -[facility] 250 DO Work Phone: Start: 03-16-2022 FUV, Provider: King Duke, Status: Pen, Time: 10:20 AM FUV, Provider: King Duke, Status: Pen, Time: 10:20 AM -[facility] DO Work Phone: Start: 06-29-2021 FUV, Provider: King Duke, Status: Pen, Time: 3:15 PM FUV, Provider: King Duke, Status: Pen, Time: 3:15 PM -[facility] [address] [place] Work Phone: Start: 04-16-2021 COVID-19 Vaccine (3 - Pfizer series) COVID-19 Vaccine (3 - Pfizer series) [facility] Start: 2015 Shingles (RZV) Vacci ne (1 of 2) Shingles (RZV) Vaccine (1 of 2) [facility] Start: 2015 Zoster Vaccines (1 o f 2) Zoster Vaccines (1 of 2) [facility] Start: 2010 Cholesterol [Mass/volume] in Serum or Plasma Cholesterol [facility] Start: 2010 Screening for malign ant neoplasm of colon [facility] Start: 2005 Screening for malign ant neoplasm of breast [facility] Start: 1995 Screening for malign ant neoplasm of cervix [facility] Start: 1987 DTaP/Tdap/Td Vaccine s (1 - Tdap) DTaP/Tdap/Td Vaccines (1 - Tdap) [facility] Start: 1986 Screening for malign ant neoplasm of cervix [facility] Start: 1984 Hepatitis A (HAV) Vaccine (optional start 19+ years) Hepatitis A (HAV) Vaccine (optional start 19+ years) [facility] Start: 1984 Hepatitis B Vaccines (1 of 3 - 19+ 3-dose series) Hepatitis B Vaccines (1 of 3 - 19+ 3-dose series) [facility] Start: 1984 Tetanus vaccination Tetanus (T d or Tdap) Booster [facility] Start: 1983 Hepatitis C screening [facility] Start: 1983 Tetanus + diphtheria + acellular pertussis vaccine (product) Tdap Booster [facility] Start: 1980 HIV screening HIV Test [facility] Start: 1971 Pneumococcal Vaccine : Pediatrics (0 to 5 Years) and At-Risk Patients (6 to 64 Years) (1 - PCV) Pneumococcal Vaccine: Pediatrics (0 to 5 Years) and At-Risk Patients (6 to 64 Years) (1 - PCV) [facility] Start: 1966 MMR Vaccines (1 of 1 - Standard series) MMR Vaccines (1 of 1 - Standard series) [facility] Start: 04-05-1966 COVID-19 Vaccine (#1) COVID-19 Vacci ne (#1) [facility] Start: 1965 Hepatitis B vaccination Hepati tis B (HBV) Vaccine (1 of 3 - 3-dose series) [facility] Start: 1965 Hepatitis B Vaccines (1 of 3 - 3-dose series) Hepatitis B Vaccines (1 of 3 - 3-dose series) [facility] Start: 1965 HIV screening HIV Screening [facility] Start: 1965 Lipid panel Lipid Panel [facility] Start: 1965 Screening for malign ant neoplasm of colon [facility] Start: 1965 Yearly Adult Physical Yearly Adult P hysical [facility] Bacteria identified in Stool by Culture [facility] Bacterial cytolethal distending toxin cdt gene [Presence] in Unspecified specimen by SHERYL with probe detection [facility] Elastase.pancreatic [Mass/mass] in Stool [facility] Ova and parasites identified in Unspecified specimen by Light microscopy [facility] Patient Education [facility] Work Phone: Patient referral [facility] Work Phone: Immunizations Immunization Date Immunization Notes Care Provider Hedy finn 2022 influenza, injectabl e, quadrivalent, preservative free Danya Newsome FIRE PREVENTION OFFICER-WORSHIP PASTOR Work Phone: [facility] Work Phone: 2022 influenza virus vaccine, unspecified formulation Danya Newsome FIRE PREVENTION OFFICER-WORSHIP PASTOR Work Phone: [facility] Work Phone: 06-30-2022 influenza, high dose seasonal, preservative-free Adeline Bianka DO Work Phone: [facility] 07-16-2021 influenza, injectabl e, quadrivalent, preservative free Maria Teresa Chowdhury Work Phone: [facility] 05-28-2021 influenza, high dose seasonal, preservative-free Adeline Bianka DO Work Phone: [facility] 02-19-2021 Pfizer-BioNTech COVID-19 Vacc 30 MCG/0.3ML Intramuscular Suspension King Duke DO Work Phone: [facility] 01-29-2021 Pfizer-BioNTech COVID-19 Vacc 30 MCG/0.3ML Intramuscular Suspension King Duke DO Work Phone: [facility] Payers Date Payer Category Payer Self-pay [id number] 2020 Medicaid [facility] MEDICAID [place] MED[place] [id number] 2020-Present [address] [place] [address] [id number] 2020 Unknown 2020 Unknown [id number] 1965 Unknown [id number] 1965 Unknown [id number] [id number] 1965 Unknown [id number] [id number] 1965 Unknown [id number] [id number] 1965 Unknown [id number] [id number] 1965 Unknown [id number] [id number] Unknown [id number] [id number] Unknown [id number] [id number] Unknown [id number] [id number] Unknown [id number] [id number] Unknown [id number] [id number] Unknown [id number] [id number] Unknown [id number] [id number] Unknown [id number] [id number] Unknown [id number] [id number] Unknown [id number] [id number] Unknown [id number] Social History Date Type Detail Facility Start: 06-26-2023 End: 06-29-2023 Caffeine use Caffeine use -[facility] DO Work Phone: Comment on above: 6 pack daily of pop; 1 pack per daily; Start: 04-21-2023 End: 06-26-2023 Sex Assigned At [facility]ait Other Start: 02-01-2022 End: 08-11-2023 Tobacco smoking status NYIS Smoker (finding) [facility] Start: 1965 Sex Assigned At Female [facility] Start: 06-26-2023 End: 10-05-2023 Tobacco smoking status NYIS Smokes tobacco daily [facility] Work Phone: History of tobacco use Cigarette Smoker [facility] Work Phone: Start: 06-26-2023 End: 06-29-2023 Tobacco use and exposure Smokeless tobacco non-user [facility] Work Phone: Start: 06-26-2023 End: 12-26-2023 Alcohol intake Lifetime non-drinker (finding) [facility] Work Phone: Start: 1965 Sex Assigned At Not on file [facility] Work Phone: Start: 06-16-2023 End: 12-26-2023 Exposure to SARS-CoV-2 (event) Not sure [facility] Start: 10-05-2023 Tobacco use and exposure User of smokeless tobacco [facility] Tobacco smoking status NYIS Tobacco smoking consumption unknown [facility] Medical Equipment Procedure Code Equipment Code Equipment Origin al Text Equipment Identifier Dates Fluoroscopic guidance for percutaneous transluminal angioplasty of renal artery IR STENT BLUE 5 X 12 80CM FDA Start: 10-03-2018 Fluoroscopic guidance for percutaneous transluminal angioplasty of renal artery IR STENT SMART 10 X 80 120 CM FDA Start: 10-03-2018 Fluoroscopic guidance for percutaneous transluminal angioplasty of renal artery IR STENT BLUE 5 X 12 80CM FDA Start: 10-03-2018 Fluoroscopic guidance for percutaneous transluminal angioplasty of renal artery IR STENT SMART 10 X 80 120 CM FDA Start: 10-03-2018 Fluoroscopic guidance for percutaneous transluminal angioplasty of renal artery IR STENT BLUE 5 X 12 80CM FDA Start: 10-03-2018 Fluoroscopic guidance for percutaneous transluminal angioplasty of renal artery IR STENT SMART 10 X 80 120 CM FDA Start: 10-03-2018 Fluoroscopic guidance for percutaneous transluminal angioplasty of renal artery IR STENT BLUE 5 X 12 80CM FDA Start: 10-03-2018 Fluoroscopic guidance for percutaneous transluminal angioplasty of renal artery IR STENT SMART 10 X 80 120 CM FDA Start: 10-03-2018 Fluoroscopic guidance for percutaneous transluminal angioplasty of renal artery IR STENT BLUE 5 X 12 80CM FDA Start: 10-03-2018 Fluoroscopic guidance for percutaneous transluminal angioplasty of renal artery IR STENT SMART 10 X 80 120 CM FDA Start: 10-03-2018 Fluoroscopic guidance for percutaneous transluminal angioplasty of renal artery IR STENT BLUE 5 X 12 80CM FDA Start: 10-03-2018 Fluoroscopic guidance for percutaneous transluminal angioplasty of renal artery IR STENT SMART 10 X 80 120 CM FDA Start: 10-03-2018 Fluoroscopic guidance for percutaneous transluminal angioplasty of renal artery IR STENT BLUE 5 X 12 80CM FDA Start: 10-03-2018 Fluoroscopic guidance for percutaneous transluminal angioplasty of renal artery IR STENT SMART 10 X 80 120 CM FDA Start: 10-03-2018 Fluoroscopic guidance for percutaneous transluminal angioplasty of renal artery IR STENT BLUE 5 X 12 80CM FDA Start: 10-03-2018 Fluoroscopic guidance for percutaneous transluminal angioplasty of renal artery IR STENT SMART 10 X 80 120 CM FDA Start: 10-03-2018 Fluoroscopic guidance for percutaneous transluminal angioplasty of renal artery IR STENT BLUE 5 X 12 80CM FDA Start: 10-03-2018 Fluoroscopic guidance for percutaneous transluminal angioplasty of renal artery IR STENT SMART 10 X 80 120 CM FDA Start: 10-03-2018 Fluoroscopic guidance for percutaneous transluminal angioplasty of renal artery IR STENT BLUE 5 X 12 80CM FDA Start: 10-03-2018 Fluoroscopic guidance for percutaneous transluminal angioplasty of renal artery IR STENT SMART 10 X 80 120 CM FDA Start: 10-03-2018 Goals Date Patient Goal Desired Activity /State Clinical Notes 07-28-2015 to 12-26-2023 King Duke, DO - 12/26/2023 2:40 PM EDTPatient InstructionsTelephone Encounter - Adeline Carlton, DO - 2023 11:06 AM ESTTelephone Encounter - Adeline Carolina Bianka, DO - 2023 11:06 AM EST Note Date & Type Note Facility 12-26-2023 History of Present illness Narrative Subjective Stephani Fermin is a 58 y.o. female Chief Complaint Follow-up 58-year-old female returns for follow-up she is doing well from a cardiovascular standpoint. She does have complaints of bilateral lower extremity numbness and tingling possibly pseudoclaudication. She is about to undergo repeat upper endoscopy at [facility]. She still smoking approximately half pack cigarettes daily we counseled her for 3 to 5 minutes today on tobacco cessation. Recent stress perfusion imaging is ordered by Dr. Carlton was completely normal with no evidence for ischemia or infarction. She does have a history of previous inferior AK with revascularization of the RCA in 2014. She denies any anginal complaints. She has not been back to vascular surgery for many years we have counseled her on the importance of considering repeat vascular surveillance. Recommendations, smoking cessation counseling, obtain lipid panel from primary care, follow-up in 1 year Review of Systems Cardiovascular: Positive for chest pain. Vitals: 12/26/23 1446 BP: (!) 158/92 BP Location: Left arm Patient Position: Sitting Pulse: 64 Weight: 49.4 kg (109 lb) Height: 1.524 m (5') Objective Physical Exam Constitutional: Appearance: Normal appearance. HENT: Nose: Nose normal. Neck: Vascular: No carotid bruit. Cardiovascular: Rate and Rhythm: Normal rate. Pulses: Normal pulses. Heart sounds: Normal heart sounds. Pulmonary: Effort: Pulmonary effort is normal. Abdominal: General: Bowel sounds are normal. Palpations: Abdomen is soft. Musculoskeletal: General: Normal range of motion. Cervical back: Normal range of motion. Right lower leg: No edema. Left lower leg: No edema. Skin: General: Skin is warm and dry. Neurological: General: No focal deficit present. Mental Status: She is alert. Psychiatric: Mood and Affect: Mood normal. Behavior: Behavior normal. Thought Content: Thought content normal. Judgment: Judgment normal. Allergies Cephalexin, Hydrocodone-acetaminophen, Propoxyphene n-acetaminophen, and Sumatriptan Current Medications Current Outpatient Medications: albuterol (ProAir HFA) 90 mcg/actuation inhaler, Inhale 2 puffs if needed for wheezing or shortness of breath. EVERY 4 TO 6 HOURS, Disp: , Rfl: albuterol 2.5 mg /3 mL (0.083 %) nebulizer solution, Inhale 3 mL (2.5 mg) every 6 hours if needed for wheezing or shortness of breath., Disp: , Rfl: alendronate (Fosamax) 70 mg tablet, Take 1 tablet (70 mg) by mouth 1 (one) time per week. in the morning at least 30 minutes before food or med of day., Disp: , Rfl: amLODIPine (Norvasc) 10 mg tablet, Take 1 tablet (10 mg) by mouth once daily. FOR BLOOD PRESSURE., Disp: , Rfl: atorvastatin (Lipitor) 80 mg tablet, Take 1 tablet (80 mg) by mouth once daily at bedtime., Disp: , Rfl: budesonide-formoteroL (Symbicort) 160-4.5 mcg/actuation inhaler, Inhale., Disp: , Rfl: cholecalciferol (Vitamin D-3) 50 mcg (2,000 unit) capsule, Take 1 capsule (50 mcg) by mouth early in the morning.., Disp: , Rfl: clopidogrel (Plavix) 75 mg tablet, Take 1 tablet (75 mg) by mouth once daily., Disp: , Rfl: esomeprazole (NexIUM) [address] capsule, Take 2 capsules (40 mg) by mouth once daily., Disp: , Rfl: gabapentin (Neurontin) 100 mg capsule, Take 1 capsule (100 mg) by mouth once daily as needed., Disp: , Rfl: lisinopril 5 mg tablet, Take 1 tablet (5 mg) by mouth once daily., Disp: , Rfl: metoprolol tartrate (Lopressor) 25 mg tablet, Take 0.5 tablets (12.5 mg) by mouth twice a day., Disp: , Rfl: pantoprazole (ProtoNix) 40 mg EC tablet, Take 1 tablet (40 mg) by mouth once daily., Disp: , Rfl: spironolactone (Aldactone) 25 mg tablet, Take 1 tablet (25 mg) by mouth early in the morning.., Disp: , Rfl: tiotropium (Spiriva with HandiHaler) 18 mcg inhalation capsule, Place 1 capsule (18 mcg) into inhaler and inhale once daily. USING 2 INHALATIONS VIA HANDIHALER, Disp: , Rfl: Assessment/Plan 1. Chronic obstructive pulmonary disease, unspecified COPD type (Multi) Follow Up In Cardiology 2. Atherosclerosis of rincon coronary artery of rincon heart without angina pectoris Follow Up In Cardiology 3. Essential hypertension Follow Up In Cardiology 4. Mixed hyperlipidemia Follow Up In Cardiology 5. PVD (peripheral vascular disease) ([facility]) Follow Up In Cardiology 6. History of AK (myocardial infarction) 7. History of PTCA 8. Current smoker 9. BMI 21.0-21.9, adult Scribe Attestation By signing my name below, I, Ying Mehta LPN attest that this documentation has been prepared under the direction and in the presence of King Duke DO. Provider Attestation - Scribe documentation All medical record entries made by the Scribe were at my direction and personally dictated by me. I have reviewed the chart and agree that the record accurately reflects my personal performance of the history, physical exam, discussion and plan. documented in this encounter [facility] Work Phone: 12-26-2023 Instructions Daniel Vickers MA - 12/26/2023 2:40 PM EDT Please bring all medicines, vitamins, and herbal supplements with you when you come to the office. Prescriptions will not be filled unless you are compliant with your follow up appointments or have a follow up appointment scheduled as per instruction of your physician. Refills should be requested at the time of your visit. documented in this encounter [facility] Work Phone: 12-18-2023 Hospital Discharge instructions Ambulatory OrdersReferral to Gastroenterology Time Frame: 12/18/23, Location: None [facility] Work Phone: 2023 Telephone encounter Note Called and clarified [facility] 2023 Miscellaneous Notes Called and clarified [facility] called stating they received order for Robitussin supply 10 days but instructions is for 5 days. They would like a call back [phone] documented in this encounter [facility] 2023 Telephone encounter Note [facility] called stating they received order for Robitussin supply 10 days but instructions is for 5 days. They would like a call back [phone] [facility] 10-05-2023 History of Present illness Narrative Images from the original note were not included. Stephani Fermin presents today for follow up on COPD. She was last seen 3 months ago. Since her last office visit she has continued with some complaints of shortness of breath with exertion. She does not feel that this has worsened since her last office visit. She does also complain of some heaviness of her legs with exertion. She states she is currently in the process of seeking evaluation by vascular surgery. She does continue to smoke on a daily basis. She does complain of a cough that is generally dry in nature. She denies any current complaints of chest pain, palpitations, fevers, chills, sweats, or recent unintentional weight changes. She did request refills on her medications at today's office visit. She denies any other complaints at this time. Allergies: Allergies Allergen Reactions Cephalexin Hives, Itching and GI intolerance stomach upset, Vomiting Hydrocodone-Acetaminophen Itching and GI intolerance Nausea/vomiting Propoxyphene Hives, GI intolerance and Headache Vomiting Sumatriptan Hives and Unknown Hydrocodone Other Heartburn Medications: Current Outpatient Medications: albuterol (2.5 MG/3ML) 0.083% nebulizer solution, Take 3 mL (2.5 mg) by nebulization every 6 (six) hours if needed for shortness of breath or wheezing., Disp: 375 mL, Rfl: 5 albuterol HFA (Ventolin HFA) 90 mcg/act inhaler, Inhale 2 puffs every 4 (four) hours if needed for shortness of breath or wheezing., Disp: 18 g, Rfl: 5 amLODIPine (Norvasc) 10 MG tablet, , Disp: , Rfl: ASPIRIN 81 MG chewable tablet, Chew 81 mg 1 (one) time each day at the same time., Disp: , Rfl: atorvastatin (Lipitor) 80 MG tablet, Take 80 mg by mouth 1 (one) time each day at the same time., Disp: , Rfl: azithromycin (Zithromax) 250 MG tablet, Take 1 tablet (250 mg) by mouth in the morning., Disp: 30 tablet, Rfl: 5 Calcium 500 + D3 500-15 MG-MCG tablet, , Disp: , Rfl: clopidogrel (Plavix) 75 MG tablet, Take 75 mg by mouth 1 (one) time each day at the same time., Disp: , Rfl: dicyclomine (Bentyl) 20 MG tablet, Take 20 mg by mouth in the morning and 20 mg at noon and 20 mg in the evening and 20 mg before bedtime. Take before meals., Disp: , Rfl: esomeprazole (NexIUM) 40 MG injection, Infuse 40 mg into a venous catheter in the morning. Infuse before meals., Disp: , Rfl: hydroCHLOROthiazide (HYDRODiuril) 12.5 MG tablet, Take 12.5 mg by mouth in the morning., Disp: , Rfl: hyoscyamine (Anaspaz,Levsin) 0.125 MG tablet, every 4 (four) hours., Disp: , Rfl: lisinopril 5 MG tablet, 1 (one) time each day at the same time., Disp: , Rfl: metoprolol tartrate (Lopressor) 25 MG tablet, Take 25 mg by mouth every 12 (twelve) hours., Disp: , Rfl: montelukast (Singulair) 10 MG tablet, TAKE ONE TABLET BY MOUTH ONCE DAILY AT THE SAME TIME EACH DAY, Disp: 90 tablet, Rfl: 3 ondansetron (Zofran) 8 MG tablet, 1 tablet, Disp: , Rfl: Roflumilast (Daliresp) 500 MCG tablet, Take 500 mcg by mouth 1 (one) time each day at the same time., Disp: 30 tablet, Rfl: 5 spironolactone (Aldactone) 25 MG tablet, 1 tablet, Disp: , Rfl: budesonide-formoterol (Symbicort) 160-4.5 MCG/ACT inhaler, Inhale 2 puffs every 12 (twelve) hours, Disp: 1 each, Rfl: 5 gabapentin (Neurontin) 100 MG capsule, Take 1 capsule (100 mg) by mouth at bedtime, Disp: 30 capsule, Rfl: 5 guaiFENesin-codeine (Robitussin-AC) 100-10 MG/5ML syrup, Take 5 mL by mouth every 6 (six) hours if needed for cough for up to 5 days, Disp: 200 mL, Rfl: 0 tiotropium (Spiriva Respimat) 2.5 MCG/ACT inhaler, Inhale 2 puffs 1 (one) time each day at the same time, Disp: 1 each, Rfl: 5 Past Medical History: Past Medical History: Diagnosis Date Abnormal serum thyroid stimulating hormone (TSH) level 10/05/2023 Acute on chronic kidney failure ([facility]) 10/05/2023 Anemia 10/05/2023 Asthma ([facility]) 06/24/2023 Asymptomatic bilateral carotid artery stenosis 06/24/2023 Atherosclerosis of rincon coronary artery of rincon heart without angina pectoris ([facility]) 06/24/2023 Last Assessment & Plan: Jul 2015 inferior STEMI RCA PCI/BRISA mLAD 50-70% CX mild LI January 2023 MPI no ischemia, EF 75% Current daily activity 4 METS without recurrent symptoms B12 deficiency 10/05/2023 Bilateral carotid bruits 06/24/2023 CAD (coronary artery disease) ([facility]) Cervical cancer ([facility]) Chest pain 06/24/2023 Last Assessment & Plan: Resolved on own Could not tolerate Nitropatch Daily activity: ADLS, clean home, laundry in basement Chronic heart failure ([facility]) CKD (chronic kidney disease) Closed fracture of toe 10/05/2023 Coccyx contusion 10/05/2023 Contusion of hip 10/05/2023 COPD (chronic obstructive pulmonary disease) ([facility]) Depression ([facility]) Epigastric abdominal pain 10/05/2023 Essential hypertension ([facility]) 06/24/2023 Last Assessment & Plan: Optimal in office Extremity atherosclerosis with intermittent claudication ([facility]) 06/24/2023 Fracture of rib 10/05/2023 GERD (gastroesophageal reflux disease) History of endocrine disorder 06/29/2023 History of AK (myocardial infarction) ([facility]) 06/24/2023 History of PTCA 06/24/2023 Hyperlipidemia ([facility]) 06/24/2023 Last Assessment & Plan: Tolerating high intensity statin Reports annual labs with PCP Hypersomnia 06/24/2023 Hypertension ([facility]) Hypertensive chronic kidney disease with stage 1 through stage 4 chronic kidney disease, or unspecified chronic kidney disease ([facility]) 10/05/2023 Metabolic acidosis 10/05/2023 Muscle strain of left foot 10/05/2023 Osteoporosis ([facility]) Other acquired deformity of head 06/29/2023 Pancytopenia ([facility]) 10/05/2023 PVD (peripheral vascular disease) ([facility]) 06/24/2023 Last Assessment & Plan: No open wounds or claudication Reports will be reestablishing with vascular in the near future SCC (squamous cell carcinoma), scalp/neck Seborrheic keratoses 06/06/2022 Status post insertion of iliac artery stent 06/29/2023 Strain of left knee 10/05/2023 Traumatic hematoma of left upper arm 10/05/2023 Social History: Social History Tobacco Use Smoking status: Every Day Packs/day: 1 Types: Cigarettes Smokeless tobacco: Current Substance Use Topics Alcohol use: Never Vitals: BP 133/76 (BP Location: Left arm, Patient Position: Sitting) Pulse 80 Ht 5' Wt 111 lb SpO2 98% BMI 21.68 kg/m Exam: Heart: regular rate Lungs: clear to auscultation bilaterally, no wheezes/rales/rhonchi, no resp distress Extremities: no edema noted, no visible rashes Neuro: alert, oriented x3 Imaging Reviewed: None Assessment/Plan: Diagnoses and all orders for this visit: Chronic obstructive pulmonary disease, unspecified COPD type ([facility]) - budesonide-formoterol (Symbicort) 160-4.5 MCG/ACT inhaler; Inhale 2 puffs every 12 (twelve) hours - tiotropium (Spiriva Respimat) 2.5 MCG/ACT inhaler; Inhale 2 puffs 1 (one) time each day at the same time - gabapentin (Neurontin) 100 MG capsule; Take 1 capsule (100 mg) by mouth at bedtime - guaiFENesin-codeine (Robitussin-AC) 100-10 MG/5ML syrup; Take 5 mL by mouth every 6 (six) hours if needed for cough for up to 5 days Cigarette smoker COPD -- she does continue with use of Symbicort and Spiriva. She did try Trelegy, however states that this did not work well for her and caused a bad taste in her mouth. She did request refills of Symbicort and Spiriva at today's office visit. We discussed that her cough may be in part neurogenic. She was given a prescription for nontender given this at today's office visit. She was also given some cough syrup to help her with sleep at night. Her OARRS report was reviewed prior to the prescription being sent. Tobacco use -- she does continue to smoke on a daily basis. We did have a 4 minute discussion regarding the importance of smoking cessation at today's office visit. Follow up in about 3 months (around 01/03/2024) for COPD. Adeline Carlton DO documented in this encounter [facility] 08-11-2023 Procedure note [facility] 06-26-2023 Evaluation + Plan note Associated Problem(s): Current smoker In past has tried patches, gum, Chantix and Wellbutrin Is not able to quit at this time Continued every day tobacco use. Have reviewed the negative cardiovascular impact of nicotine. Continues to decline pharmacological assistance. [facility] Work Phone: 06-26-2023 Miscellaneous Notes Associated Problem(s): Current smoker In past has tried patches, gum, Chantix and Wellbutrin Is not able to quit at this time Continued every day tobacco use. Have reviewed the negative cardiovascular impact of nicotine. Continues to decline pharmacological assistance. Associated Problem(s): PVD (peripheral vascular disease) ([facility]) No open wounds or claudication Reports will be reestablishing with vascular in the near future Associated Problem(s): Hyperlipidemia Tolerating high intensity statin Reports annual labs with PCP Associated Problem(s): Essential hypertension Optimal in office Associated Problem(s): Atherosclerosis of rincon coronary artery of rincon heart without angina pectoris Jul 2015 inferior STEMI RCA PCI/BRISA mLAD 50-70% CX mild LI January 2023 MPI no ischemia, EF 75% Current daily activity 4 METS without recurrent symptoms Associated Problem(s): Chest pain Resolved on own Could not tolerate Nitropatch Daily activity: ADLS, clean home, laundry in basement documented in this encounter [facility] Work Phone: 06-26-2023 Evaluation + Plan note Associated Problem(s): PVD (peripheral vascular disease) (CMS/HCC) No open wounds or claudication Reports will be reestablishing with vascular in the near future [facility] Work Phone: 06-26-2023 Evaluation + Plan note Associated Problem(s): Hyperlipidemia Tolerating high intensity statin Reports annual labs with PCP [facility] Work Phone: 06-26-2023 Evaluation + Plan note Associated Problem(s): Essential hypertension Optimal in office [facility] Work Phone: 06-26-2023 Evaluation + Plan note Associated Problem(s): Atherosclerosis of rincon coronary artery of rincon heart without angina pectoris Jul 2015 inferior STEMI RCA PCI/BRISA mLAD 50-70% CX mild LI January 2023 MPI no ischemia, EF 75% Current daily activity 4 METS without recurrent symptoms [facility] Work Phone: 06-26-2023 Evaluation + Plan note Associated Problem(s): Chest pain Resolved on own Could not tolerate Nitropatch Daily activity: ADLS, clean home, laundry in basement [facility] Work Phone: 06-26-2023 History of Present illness Narrative Chief Complaint Doing okay Reason for Visit 8-week follow-up to reevaluate chest pain. Patient presents to the office today for outpatient follow-up for chest pain. Last evaluated in clinic by Dr. Duke March 2023. At that time Nitropatch added to medical regimen, unfortunately she was unable to tolerate due to ecchymosis. Presents today ambulatory with steady gait. Accompanied by patient Patient denies any hospitalizations or significant changes to interval medical history since last office follow-up. History of Present Illness Has follow-up with Dr. Duke patient reported atypical chest pain. She utilizes Nitropatch for approximately 1 week with no noted benefit in shortness of breath or chest pain. She was unable to tolerate the Nitropatch due to ecchymosis. She reports that her complaints resolved without any type of treatment. In retrospect, I believe there was a in her family and she was under a lot of stress and anxiety . Nonetheless symptoms have abated and she is not utilizing nitroglycerin. She remains compliant with medications as listed. Patient reports that overall has no complaint(s) of chest pain, claudication, fatigue, lower extremity edema, and near-syncope Daily activity: ADLs, housework, her laundry is in the basement. Denies any change in exercise capacity or functional tolerance since last office visit. The importance of secondary prevention reviewed: HTN: Optimal in office HLD: Tolerating high intensity statin annual labs through PCP DM: Denies Smoker: Current 1 pack/day smoker, unable to abstain. BMI: Reviewed the merits of healthy lifestyle choices on overall cardiovascular health. Discussed the dynamic nature of coronary artery disease and the importance of seeking medical attention if new symptoms arise. Review of Systems Cardiovascular: Negative for chest pain, dyspnea on exertion, irregular heartbeat, leg swelling, near-syncope, orthopnea, palpitations, paroxysmal nocturnal dyspnea and syncope. Visit Vitals BP 132/62 (BP Location: Left arm, Patient Position: Sitting) Pulse 80 Ht 1.524 m (5') Wt 49.9 kg (110 lb) BMI 21.48 kg/m Smoking Status Every Day BSA 1.45 m Physical Exam Vitals and nursing note reviewed. HENT: Head: Normocephalic. Cardiovascular: Rate and Rhythm: Normal rate and regular rhythm. Heart sounds: Normal heart sounds. Pulmonary: Effort: Pulmonary effort is normal. Breath sounds: Wheezing present. Abdominal: Palpations: Abdomen is soft. Musculoskeletal: Right lower leg: No edema. Left lower leg: No edema. Skin: General: Skin is warm and dry. Neurological: General: No focal deficit present. Mental Status: She is alert. Psychiatric: Mood and Affect: Mood normal. Behavior: Behavior normal. Current Outpatient Medications Medication Instructions albuterol (ProAir HFA) 90 mcg/actuation inhaler 2 puffs, inhalation, As needed, EVERY 4 TO 6 HOURS albuterol 2.5 mg, inhalation, Every 6 hours PRN alendronate (FOSAMAX) 70 mg, oral, Weekly, in the morning at least 30 minutes before food or med of day.
amLODIPine (Norvasc) 10 mg tablet 1 tablet, oral, Daily, FOR BLOOD PRESSURE.
aspirin 81 mg, oral, Daily atorvastatin (Lipitor) 80 mg tablet 1 tablet, oral, Nightly budesonide-formoteroL (Symbicort) 160-4.5 mcg/actuation inhaler inhalation cholecalciferol (Vitamin D-3) 50 mcg (2,000 unit) capsule 1 capsule, oral, Daily clopidogrel (Plavix) 75 mg tablet 1 tablet, oral, Daily esomeprazole (NexIUM) [address] capsule 1 capsule, oral, Daily lisinopril 5 mg, oral, Daily metoprolol tartrate (LOPRESSOR) 12.5 mg, oral, 2 times daily montelukast (Singulair) 10 mg tablet 1 tablet, oral, Every evening nitroglycerin (NITROSTAT) 0.4 mg, sublingual, Every 5 min PRN pantoprazole (ProtoNix) 40 mg EC tablet 1 tablet, oral, Daily spironolactone (Aldactone) 25 mg tablet 1 tablet, oral, 2 times daily tiotropium (Spiriva with HandiHaler) 18 mcg inhalation capsule 1 capsule, inhalation, Daily RT, USING 2 INHALATIONS VIA HANDIHALER
Assessment: Chest pain Resolved on own Could not tolerate Nitropatch Daily activity: ADLS, clean home, laundry in basement Atherosclerosis of rincon coronary artery of rincon heart without angina pectoris Jul 2015 inferior STEMI RCA PCI/BRISA mLAD 50-70% CX mild LI January 2023 MPI no ischemia, EF 75% Current daily activity 4 METS without recurrent symptoms Essential hypertension Optimal in office Hyperlipidemia Tolerating high intensity statin Reports annual labs with PCP PVD (peripheral vascular disease) ([facility]) No open wounds or claudication Reports will be reestablishing with vascular in the near future Current smoker In past has tried patches, gum, Chantix and Wellbutrin Is not able to quit at this time Continued every day tobacco use. Have reviewed the negative cardiovascular impact of nicotine. Continues to decline pharmacological assistance. Plan: Current treatment plan is effective, no change in therapy. Very strongly urged to quit smoking to reduce cardiovascular risk. Use and side effects of nitroglycerine reviewed, call 911 if chest pain unrelieved by 3 tablets. For claudication, exercise to point of pain, rest, then continue. Through informed decision making process incorporating patients unique circumstances, the following treatment plan will be initiated: 1. Prescription drug management of cardiovascular medication for efficacy, adherence to treatment, side effect assessment and polypharmacy. Current treatment clinically warranted and to continue without modifications. 2. Return for follow-up; in the interim, contact the office if new symptoms arise. Dr. Duke in months Danya Newsome MSN, ELIE, [facility] Please excuse any errors in grammar or translation related to this dictation. Voice recognition software was utilized to prepare this document. documented in this encounter [facility] Work Phone: 06-26-2023 Instructions ELIE Reno - 06/26/2023 1:30 PM EDT Please bring all medicines, vitamins, and herbal supplements with you when you come to the office. Prescriptions will not be filled unless you are compliant with your follow up appointments or have a follow up appointment scheduled as per instruction of your physician. Refills should be requested at the time of your visit. PLAN: Through informed decision making process incorporating patients unique circumstances, the following treatment plan will be initiated: 1. Prescription drug management of cardiovascular medication for efficacy, adherence to treatment, side effect assessment and polypharmacy. Current treatment clinically warranted and to continue without modifications. 2. Return for follow-up; in the interim, contact the office if new symptoms arise. Dr. Duke in months Discussed the dynamic nature of coronary artery disease and the importance of seeking medical attention if new symptoms arise. documented in this encounter [facility] Work Phone: 01-20-2023 Evaluation note Encounter Date Diagnosis Assessment Notes December, GERD (gastroesopha geal reflux disease) (ICD-10 - K21.9) patient complains of a sore throat on & off for over a year. She states she has dysphagia fo rmeat frequently. She also has painful swallowing occasionally. She is taking OTC Nexium qd. Proceed with EGD for further evaluation & a follow up in the office two weeks following the EGD. December, Dysphagia (ICD-10 - R13.10) [employer] Other 03-01-2023 History and physical note Author Anderson Espino [facility] October 26, 2022 12:00pm Note Date/Time October 26, 2022 12:0 0pm [facility] [address] [place] [address] Gastroenterology H&P Signed Patient: Stephani Fermin MR#: [id number] : 1965 Acct:[id number] Age/Sex: 57 / F Adm Date: 3 Loc: Room: Type: [facility] Attending Dr: Anderson Espino MD Copies to: Anderson Espino MD [facility] Date of Service: 10/26/2022 HISTORY & PHYSICAL: Patient's history with special attention to the cardiovascular, pulmonary systems and the current problem was reviewed with the patient immediately prior to the procedure. Present medications and doses reviewed in the EMR. Allergies and pertinent laboratory tests were also reviewedat this time in the EMR. The physical examination, as below, was then performed. Indication, assessment and HPI: 57-year-old female presents for screening colonoscopy Family history of GI malignancy? No PHYSICAL EXAMINATION Mouth and Pharynx : Moist mucus membranes, normal dentition Cardiac: Regular rate, regular rhythm Pulmonary: Clear to auscultation bilaterally, no wheezing Neurological: Alert and oriented x3, no focal deficits noted Abdomen: Abdomen soft, non-tender REVIEW OF SYSTEMS Constitutional: Denies malaise, fevers Cardiovascular: Denies chest pain, palpitations Respiratory: Denies shortness of breath, wheezing Gastrointestinal: Per HPI Genitourinary: Denies dysuria, polyuria Musculoskeletal: Denies joint swelling, joint stiffness Neurological: Denies numbness, tingling Integumentary: Denies rashes, skin lesions Endocrine: Denies fatigue, weight loss Written informed consent obtained from the patient. Risks (including but not limited to perforation, infection, bloating, bleeding, need for emergent surgeryand loss of life), benefits and alternatives explained and questions answered. The patient verbalized understanding. Based on history patient is an appropriate candidate for the procedure. Anderson Espino MD Documented By: Anderson Espino MD 10/26/221199 Signed By: <Electronically signed by Anderson Espino MD> 10/26/22 1200 [facility] Work Phone: [phone] 852-747403-01-2023 Procedure [facility]01-19-2023 Evaluation note* Encounter Date Diagnosis Assessment Notes Treatment Notes Treatment Clinical Notes Aug, Chronic kidney disease, stage 3a (ICD-10 - N18.31) She has mild CKD stage III with creatinine 1.2-1.4 mg/dL on January 2021. It was down to 1 mg/dL after discontinuation of lisinopril however currently up to 1.3 mg/dL in the setting of diarrhea and better blood pressure control. She has a history of renal artery stenosis s/p angioplasty and stent of the left renal artery in 2019. Patient also has PAD. Monitor renal function every 4 to 6 months or as needed. Patient is high risk for CKD considering her smoking history. Aug, Hypokalemia (ICD-10 - E87.6) Patient has recurrent hypokalemia currently with diarrhea of unknown reason. She is going to have colonoscopy. Potassium was restarted. Patient on pantoprazole. Since patient on pantoprazole and she has normal renal function, will add magnesium oxide 400 mg daily and recheck magnesium and replete as indicated. I did order labs in 2 weeks to follow-up on hypokalemia and hypomagnesemia that will be reviewed and I will call the patient if needed. Aug, Hypertensive chronic kidney disease w stg 1-4/unsp chr kdny (ICD-10 - I12.9) Blood pressure seems to be better after addition of amlodipine and weight loss. Lisinopril still on hold. Continue low-salt diet. Aug, PAD (peripheral artery disease) (ICD-10 - I73.9) Patient has peripheral arterial disease status post right iliac angioplasty in addition to renal artery stenosis status post left renal angioplasty. She may have residual renal artery stenosis contributing to elevated creatinine, hypertension hypokalemia however blood pressure has markedly improved with resolution of edema after last hospitalization was with weight loss Aug, Chronic obstructive pulmonary disease, unspecified COPD type (ICD-10 - J44.9) Patient has COPD in the setting of smoking. She follow-up with Dr. Carlton. Aug, Smoker (ICD-10 - F17.200) Patient still smokes 1 pack/day. She did try nicotine patch and Chantix before. She follow-up with pulmonary. Aug, GERD (gastroesophageal reflux disease) (ICD-10 - K21.9) [employer] Other 06-23-2022 Evaluation note* Encounter Date Diagnosis Assessment Notes Treatment Notes Treatment Clinical Notes Jan, Chronic kidney disease, stage 3a (ICD-10 - N18.31) She has mild CKD stage III with creatinine 1.2-1.4 mg/dL on January 2021 however currently down to 1 mg/dL after discontinuation of lisinopril and weight loss during last hospitalization. She has a history of renal artery stenosis s/p angioplasty and stent of the left renal artery in 2018. Patient also has PAD. Monitor renal function every 4 to 6 months or as needed. Patient is high risk for CKD considering her smoking history. Jan, Hypertensive chronic kidney disease w stg 1-4/unsp chr kdny (ICD-10 - I12.9) Blood pressure seems to be better after addition of amlodipine and weight loss. Lisinopril still on hold. Continue low-salt diet. Jan, PAD (peripheral artery disease) (ICD-10 - I73.9) Patient has peripheral arterial disease status post right iliac angioplasty in addition to renal artery stenosis status post left renal angioplasty. She may have residual renal artery stenosis contributing to elevated creatinine, hypertension hypokalemia however blood pressure has markedly improved with resolution of edema after last hospitalization was with weight loss Jan, Hypokalemia (ICD-10 - E87.6) Patient had recurrent hypokalemia in the setting of elevated blood pressure. She used to be potassium supplement that was stopped. Potassium is normal after recent hospitalization. We will monitor potassium and replete as needed. Jan, Chronic obstructive pulmonary disease, unspecified COPD type (ICD-10 - J44.9) Patient has COPD in the setting of smoking. She follow-up with pulmonary. Jan, Smoker (ICD-10 - F17.200) She still smokes 1 pack/day. She did try nicotine patch and she switched to Chantix however it was stopped because of nausea and COVID 19 infection. She stated that she will try again. Jan, GERD (gastroesophageal reflux disease) (ICD-10 - K21.9) Patient has intermittent hypokalemia. We will check magnesium if potassium below begin as PPI is known to cause hypomagnesemia. [employer] Other 03-10-2022 Evaluation note* Encounter Date Diagnosis Assessment Notes Treatment Notes Treatment Clinical Notes Oct, Chronic kidney disease, stage 3a (ICD-10 - N18.31) She has mild CKD stage III with creatinine 1.47 mg/dL on 01/26/2021 possibly related to hypertension and atherosclerotic renovascular disease. She has a history of renal artery stenosis s/p angioplasty and stent of the left renal artery in 2019. Patient also has PAD. She did not have the urine analysis, spot urine for protein creatinine or the mineral panel. We will reorder. Bilateral kidney ultrasound as stated above showed no obstructive uropathy. Renal function is better with creatinine down to 1.2 mg/dL even with better blood pressure. Oct, Hypertensive chronic kidney disease w stg 1-4/unsp chr kdny (ICD-10 - I12.9) Blood pressure seems to be better after addition of amlodipine. She still has hypokalemia. We will add spironolactone 25 mg daily and recheck blood pressure and potassium. She will continue potassium supplement for now. Since she has hypokalemia and elevated blood pressure, will screen for hyperaldosteronism. Continue low-salt diet. Oct, PAD (peripheral artery disease) (ICD-10 - I73.9) Patient has peripheral arterial disease status post right iliac angioplasty in addition to renal artery stenosis status post left renal angioplasty. She may have residual renal artery stenosis contributing to elevated creatinine, hypertension hyperkalemia. For now we will continue treatment with medications only with plan for renal angiogram if blood pressure is difficult to control with diuretics or renal function deteriorates faster than expected. Oct, Hypokalemia (ICD-10 - E87.6) Patient has hypokalemia on potassium supplements in the setting of documented renal artery stenosis and hypertension. Patient also on PPI with possibility of hypomagnesemia. Will check magnesium, renin and aldosterone to rule out primary hyperaldosteronism as well. Patient is a chronic smoker with possibility of decreased oral intake. Oct, Chronic obstructive pulmonary disease, unspecified COPD type (ICD-10 - J44.9) Patient has COPD in the setting of smoking. She follow-up with pulmonary. Oct, Smoker (ICD-10 - F17.200) She still smokes 1 pack/day. She did try nicotine patch and she switched to Chantix however it was stopped because of nausea and COVID 19 infection. She stated that she will try again. Oct, GERD (gastroesophageal reflux disease) (ICD-10 - K21.9) Patient has hypokalemia, will check magnesium level stated above. [employer] Other 12-01-2015 History general Narrative - Reported* Type Description Date Medical History 07/2015 Medical History PVD Medical History CAD Medical History HTN Medical History HYPERLIPIDEMIA Medical History CAROTID STENOSIS Medical History migraine headaches Medical History HTN Medical History ovarian cysts Medical History cervical cancer Medical History Dyslipidemia Medical History Tubal Medical History Left ankle fx x 2 Medical History asthma Medical History COPD Medical History Esophageal reflux Medical History KIDNEY INSUFFICIENCY Medical History KIDNEY STENT PLACEMENT Medical History METABOLIC ACIDOSIS Medical History ACUTE KIDNEY INJURY SUPERIMPOSED ON CKD Medical History VITAMIN B12 DEFICIENCY Medical History ABNORMAL SERUM THYRO ID STIMULATING HORMONE (TSH) LEVEL Surgical History Angio 06/2017 Surgical History Cardiac stents 2014 Surgical History Tonsillectomy Surgical History Cervex removed Surgical History Bladder enlargement Surgical History Ovarian cyst removal Surgical History Lt Renal DSA, angiop lasty & stent; Rt Renal DSA, Iliac angioplasty & stent 10-03-2018 Hospitalization History as above Hospitalization History COPD, BRI ON CKD, DEHYDR ATION, METABOLIC ACIDOSIS 02/01/2022 [employer] Other 12-01-2015 History general Narrative - Reported* Type Description Date Medical History 07/2015 Medical History PVD Medical History CAD Medical History HTN Medical History HYPERLIPIDEMIA Medical History CAROTID STENOSIS Medical History migraine headaches Medical History HTN Medical History ovarian cysts Medical History cervical cancer Medical History Dyslipidemia Medical History Tubal Medical History Left ankle fx x 2 Medical History asthma Medical History COPD Medical History Esophageal reflux Medical History KIDNEY INSUFFICIENCY Medical History KIDNEY STENT PLACEMENT Surgical History Angio 06/2017 Surgical History Cardiac stents 2014 Surgical History Tonsillectomy Surgical History Cervex removed Surgical History Bladder enlargement Surgical History Ovarian cyst removal Surgical History Lt Renal DSA, angiop lasty & stent; Rt Renal DSA, Iliac angioplasty & stent 10-03-2018 Hospitalization History as above [employer] Other 12-01-2015 History general Narrative - Reported* Type Description Date Medical History 07/2015 Medical History PVD Medical History CAD Medical History HTN Medical History HYPERLIPIDEMIA Medical History CAROTID STENOSIS Medical History migraine headaches Medical History HTN Medical History ovarian cysts Medical History cervical cancer Medical History Dyslipidemia Medical History Tubal Medical History Left ankle fx x 2 Medical History asthma Medical History COPD Medical History Esophageal reflux Medical History KIDNEY INSUFFICIENCY Medical History KIDNEY STENT PLACEMENT Medical History METABOLIC ACIDOSIS Medical History ACUTE KIDNEY INJURY SUPERIMPOSED ON CKD Medical History VITAMIN B12 DEFICIENCY Medical History ABNORMAL SERUM THYRO ID STIMULATING HORMONE (TSH) LEVEL Medical History 08/04/2022 SKIN CANCER REMOVED FR [facility] Surgical History Angio 06/2017 Surgical History Cardiac stents 2014 Surgical History Tonsillectomy Surgical History Cervex removed Surgical History Bladder enlargement Surgical History Ovarian cyst removal Surgical History Lt Renal DSA, angiop lasty & stent; Rt Renal DSA, Iliac angioplasty & stent 10-03-2018 Surgical History SKIN CANCER REMOVED FROM [facility] AD 08/04/22 Hospitalization History as above Hospitalization History COPD, BRI ON CKD, DEHYDR ATION, METABOLIC ACIDOSIS 02/01/2022 [facility] [employer] Other Evaluation [facility]No [facility] [employer] Other Evaluation noteNo assessment information available [facility] Work Phone: Evaluation note* Diagnosis Atherosclerosis of rincon coronary artery of rincon heart without angina pectoris- Primary Chronic obstructive pulmonary disease, unspecified COPD type (CMS/HCC) Essential hypertension Unspecified essential hypertension Mixed hyperlipidemia PVD (peripheral vascular disease) ([facility]/HCC) Unspecified peripheral vascular disease Current smoker documented in this encounter [facility] Work Phone: Evaluation note* Diagnosis Chronic obstructive pulmonary disease, unspecified COPD type (CMS/HCC) Cigarette smoker Tobacco use disorder [facility] Diagnosis Onset Date Resolution Status Diarrhea acute Dyspepsia acute Dyspepsia acute Irritable bowel syndrome with diarrhea acute [facility] Work Phone: Evaluation note* Diagnosis Epigastric pain- Primary Abdominal pain, epigastric Dysphagia, unspecified type [facility] Diagnosis Chronic obstructive pulmonary disease, unspecified COPD type (Multi) Atherosclerosis of rincon coronary artery of rincon heart without angina pectoris Essential hypertension Unspecified essential hypertension Mixed hyperlipidemia PVD (peripheral vascular disease) ([facility]-HCC) Unspecified peripheral vascular disease History of AK (myocardial infarction) Old myocardial infarction History of PTCA Postsurgical percutaneous transluminal coronary angioplasty status Current smoker BMI 21.0-21.9, adult documented in this encounter [facility] Work Phone: History and physical note Author Anderson Espino [facility] August 11, 2023 10:48am Note Date/Time August 11, 2023 10:48am [facility] [address] [place] [address] Gastroenterology H&P Signed Patient: Stephani Fermin MR#: [id number] : 1965 Acct:[id number] Age/Sex: 57 / F Adm Date: 3 Loc: Room: Type: [facility] Attending Dr: Anderson Espino MD Copies to: Anderson Espino MD Maria Teresa Rojo~ Date of Service: 08/11/2023 HISTORY & PHYSICAL: Patient's history with special attention to the cardiovascular, pulmonary systems and the current problem was reviewed with the patient immediately prior to the procedure. Present medications and doses reviewed in the EMR. Allergies and pertinent laboratory tests were also reviewedat this time in the EMR. The physical examination, as below, was then performed. Indication, assessment and HPI: 57-year-old female presents for EGD to evaluate history of dysphagia, on esomeprazole 20 mg daily Family history of GI malignancy? No PHYSICAL EXAMINATION Mouth and Pharynx : Moist mucus membranes, normal dentition Cardiac: Regular rate, regular rhythm Pulmonary: Clear to auscultation bilaterally, no wheezing Neurological: Alert and oriented x3, no focal deficits noted Abdomen: Abdomen soft, non-tender REVIEW OF SYSTEMS Constitutional: Denies malaise, fevers Cardiovascular: Denies chest pain, palpitations Respiratory: Denies shortness of breath, wheezing Gastrointestinal: Per HPI Genitourinary: Denies dysuria, polyuria Musculoskeletal: Denies joint swelling, joint stiffness Neurological: Denies numbness, tingling Integumentary: Denies rashes, skin lesions Endocrine: Denies fatigue, weight loss Written informed consent obtained from the patient. Risks (including but not limited to perforation, infection, bloating, bleeding, need for emergent surgeryand loss of life), benefits and alternatives explained and questions answered. The patient verbalized understanding. Based on history patient is an appropriate candidate for the procedure. Anderson Espino MD Documented By: Anderson Espino MD 08/11/23 1047 Signed By: <Electronically signed by Anderson Espino MD> 08/11/23 1048 [facility] Work Phone: History of Present illness Narrative* The patient states she has been generally doing well since the last visit. Comorbid Illnesses: hypertension and hyperlipidemia. * Symptoms: denies chest pain at rest, denies exertional chest pain, stable dyspnea, stable fatigue, stable exercise intolerance, denies palpitations, denies edema, denies orthopnea, denies dizziness and denies orthostatic dizziness. * Associated symptoms: no syncope. * Her symptoms do not limit her activities. * Disease Monitoring: The patient has had a stable weight. * Medications: the patient is adherent with her medication regimen. She denies medication side effects. [facility] [address] DO Work Phone: Hospital Discharge instructions Additional Instructions DISCHARGE INSTRUCTIONS FOR COLONOSCOPY WHAT TO EXPECT: - You may feel full, gassy or cramping after your procedure. In some cases, this may be from a few hours to a day. Walking may help relieve the discomfort. - If you have polyp(s) removed you may note some minor bloody discharge after your first bowel movements. - You should begin to recover from anesthesia within 1 hour of the procedure, however may feel groggy for the next 24 hours. DO's AND DON'Ts: - Call your doctor right away if you have a hard abdomen, severe pain, are passing lots of bright red blood or clots. - Call your doctor if you develop any rashes, hives or difficulty breathing. - Let your doctor know if you have not had a bowel movement by 3 days after your procedure. - If you take 81 mg aspirin for your heart it is safe to resume this medication. - If you take other blood thinner medications your doctor will instruct you when these can safely be resumed. - Do NOT drive for 24 hours. - Do NOT operate machinery such as power tools, [employer] mowers, snow blowers, sewing machines, etc. for 24 hours. - Avoid alcoholic beverages and drugs for allergies, nerves, or sleep. - Do NOT stay alone. Do NOT leave your child unattended. - Do NOT make important personal or business decisions or sign any legal documents. - Eat solid foods and drink liquids in smaller amounts than usual until normal appetite returns. If you should experience an upset stomach, liquids high in sugar content (soda, Mikel-Aid, non-acid juices) are recommended. - You can resume normal activities tomorrow. FOLLOW UP & RECOMMENDATIONS: -Follow-up with Dr. Espino as needed -Notify the doctor if you have any problems. -Dr. Espino's office will notify you when you need a repeat colonoscopy -Follow up with PCP. -Office number [phone].[facility] Work Phone: Hospital Discharge instructions Additional Instructions Follow-up with your primary care doctor [facility] develop worsening [facility] Work [facility]: Hospital Discharge instructions Additional Instructions DISCHARGE INSTRUCTIONS FOR UPPER ENDOSCOPY WHAT TO EXPECT: - You may feel full, gassy or cramping after your procedure. In some cases, this may be from a few hours to a day. Walking may help relieve the discomfort. - Your throat may feel sore today from the scope that the doctor passed through your throat to visualize your stomach. Take a throat lozenge or suck on ice to ease the discomfort. - You may notice some streaks of blood in your sputum if the doctor has taken a biopsy. - You should begin to recover from anesthesia within 1 hour of the procedure, however may feel groggy for the next 24 hours. DO's AND DON'Ts: - Call your doctor right away if you have a hard abdomen, severe pain, vomiting or if you cough up large amounts of blood. - Call your doctor if you develop any rashes, hives or difficulty breathing. - If you take 81 mg aspirin for your heart it is safe to resume this medication. - If you take other blood thinner medications your doctor will instruct you when these can safely be resumed. - Do NOT drive for 24 hours. - Do NOT operate machinery such as power tools, [employer] mowers, snow blowers, sewing machines, etc. for 24 hours. - Avoid alcoholic beverages and drugs for allergies, nerves, or sleep. - Do NOT stay alone. Do NOT leave your child unattended. - Do NOT make important personal or business decisions or sign any legal documents. - Eat solid foods and drink liquids in smaller amounts than usual until normal appetite returns. If you should experience an upset stomach, liquids high in sugar content (soda, Mikel-Aid, non-acid juices) are recommended. - Do NOT smoke. - Do take it easy today. You need not stay in bed, but avoid strenuous activities such as jogging or working out. FOLLOW UP & RECOMMENDATIONS: -We will increase your Nexium to 40 mg daily. Take this 30 minutes before your first meal of the day. -Restart your clopidogrel tomorrow. -Follow-up with the GI office as scheduled. -Notify the doctor if you have any problems. -Follow up with PCP. -Office number [phone].[facility] Work Phone: Reason for referral (narrative)* Consultation (Routine) - Authorized Specialty Diagnoses / Procedures Referred By Claudia iverson Referred To Contact Cardiology Diagnoses Chronic obstructive pulmonary disease, unspecified COPD type (CMS/HCC) Atherosclerosis of rincon coronary artery of rincon heart without angina pectoris Essential hypertension Mixed hyperlipidemia PVD (peripheral vascular disease) (CMS/HCC) Procedures Follow Up In Cardiology Danya Newsome APRN-CNP [address] [facility] [address] [place] [address] King Duke DO [address] [address] [place] [address] Referral ID Status Reason Start Date Expiration Date V isits Requested Visits Authorized [id number] Authorized 06/26/2023 06/25/2024 1 1 [facility] Work Phone: Summary Purpose Family History No Family History Records FoundUnknown Family Member Name Dates Details Family history of cerebrovas cular accident (CVA): Brother(V17.1, Z82.3) Status:Active Family history of hypertensi on: Mother, Father(V17.49, Z82.49) Status:Active Family history of myocardial infarction: Mother(V17.3, Z82.49) Status:Active Unknown Family Member Name Dates Details Family history of cerebrovas cular accident (CVA): Brother(V17.1, Z82.3) Status:Active Family history of hypertensi on: Mother, Father(V17.49, Z82.49) Status:Active Family history of myocardial infarction: Mother(V17.3, Z82.49) Status:Active Unknown Family Member Name Dates Details Family history of cerebrovas cular accident (CVA): Brother(V17.1, Z82.3) Status:Active Family history of hypertensi on: Mother, Father(V17.49, Z82.49) Status:Active Family history of myocardial infarction: Mother(V17.3, Z82.49) Status:Active Unknown Family Member Name Dates Details Family history of cerebrovas cular accident (CVA): Brother(V17.1, Z82.3) Status:Active Family history of hypertensi on: Mother, Father(V17.49, Z82.49) Status:Active Family history of myocardial infarction: Mother(V17.3, Z82.49) Status:Active Unknown Family Member Name Dates Details Family history of cerebrovas cular accident (CVA): Brother(V17.1, Z82.3) Status:Active Family history of hypertensi on: Mother, Father(V17.49, Z82.49) Status:Active Family history of myocardial infarction: Mother(V17.3, Z82.49) Status:Active Unknown Family Member Name Dates Details Family history of cerebrovas cular accident (CVA): Brother(V17.1, Z82.3) Status:Active Family history of hypertensi on: Mother, Father(V17.49, Z82.49) Status:Active Family history of myocardial infarction: Mother(V17.3, Z82.49) Status:Active Unknown Family Member Name Dates Details Family history of cerebrovas cular accident (CVA): Brother(V17.1, Z82.3) Status:Active Family history of hypertensi on: Mother, Father(V17.49, Z82.49) Status:Active Family history of myocardial infarction: Mother(V17.3, Z82.49) Status:Active Unknown Family Member Name Dates Details Family history of cerebrovas cular accident (CVA): Brother(V17.1, Z82.3) Status:Active Family history of hypertensi on: Mother, Father(V17.49, Z82.49) Status:Active Family history of myocardial infarction: Mother(V17.3, Z82.49) Status:Active Relationship Condition Age at Onset Recorded Date/T heather Not Specified Heart disease Unknown Myocardial infarction Unknown Malignant neoplasm Unknown Cerebrovascular accident (CVA) Unknown Unknown Family Member Name Dates Details Family history of myocardial infarction: Mother(V17.3, Z82.49) Status:Active Family history of hypertensi on: Mother, Father(V17.49, Z82.49) Status:Active Family history of cerebrovas cular accident (CVA): Brother(V17.1, Z82.3) Status:Active Relationship Condition Age at Onset Recorded Date/T heather Not Specified Myocardial infarction Unknown Malignant neoplasm Unknown Cerebrovascular accident (CVA) Unknown brother Hypertension Unknown father History of stroke Unknown Unknown Hypertension Unknown Heart disease Unknown Not Specified Heart disease Unknown natural son Family history of mental disorder Unknown sister Hypertension Unknown Family history of mental disorder Unknown History of stroke Unknown Advance Directives No Advanced Directives Records Found Advance Directive Response Recorded Date/ Time Advance Directives No June 05, 2017 5:38pm Advance Directive Response Recorded Date/ Time Advance Directives No June 05, 2017 6:38pm Chief Complaint * I am doing ok * STEPHANI FERMIN is being seen for an annual follow-up of coronary artery disease, dyslipidemia and hypertension. * Patient is ambulatory with steady gait. * Patient was last evaluated by Dr. Duke Jun 2020. * Patient reports overall state of cardiovascular health as 'fine' * Daily activity level: housework, vacuum, stairs at home * Denies any change in exercise capacity or functional tolerance. * Hospitalized in Jun 2021 due to elevated BP, no cardiology f/u. * COVID+ last month, did not require hospitalizations with no lasting symptoms. * Vascular Disease: She reports will be calling office to schedule * Carotids - last checked Apr 2020 * PVD - no f/u over last year. * [facility] 02/01/2022. * STEPHANI FERMIN is being seen for a 6 month follow-up of. * 56-year-old female who returns following recent respiratory distress event in January, secondary to COPD exacerbation. She still has resting dyspnea evident on today's inspection and examination. She does complain of bilateral left greater than right lower extremity claudication but with no recent evaluation. * She continues smoking up to 1 pack of cigarettes daily. * She has had previous left lower extremity and right lower extremity stents placement with Dr. Azevedo in the remote past, history of inferior AK in 2014 with revascularization of the right coronary. * She does have evidence of bilateral carotid bruits on exam as well. * Recommendations, smoking cessation counseling for 10 minutes today, pulse volume recordings to assess lower extremity perfusion given her complaints and previous procedures and fact she has not had any vascular follow-up, bilateral carotid duplex examination based on carotid bruits on exam. We will otherwise follow-up in 6 to 12 months with the appropriate counseling and maintain current antiplatelet, statin and antihypertensive therapies. * [facility] 02/01/2022. * STEPHANI FERMIN is being seen for a 6 month follow-up of. * 56-year-old female who returns following recent respiratory distress event in January, secondary to COPD exacerbation. She still has resting dyspnea evident on today's inspection and examination. She does complain of bilateral left greater than right lower extremity claudication but with no recent evaluation. * She continues smoking up to 1 pack of cigarettes daily. * She has had previous left lower extremity and right lower extremity stents placement with Dr. Azevedo in the remote past, history of inferior AK in 2014 with revascularization of the right coronary. * She does have evidence of bilateral carotid bruits on exam as well. * Recommendations, smoking cessation counseling for 10 minutes today, pulse volume recordings to assess lower extremity perfusion given her complaints and previous procedures and fact she has not had any vascular follow-up, bilateral carotid duplex examination based on carotid bruits on exam. We will otherwise follow-up in 6 to 12 months with the appropriate counseling and maintain current antiplatelet, statin and antihypertensive therapies. Chief Complaint and Reason for Visit Chief Complaint z01.818 Chief Complaint z01.818 Screening Chief Complaint R06.00 J44.9 Chief Complaint R06.00 J44.9 left arm injury SOB Chief Complaint r10.11 R11.2;R19.7;R10.11;N18.31;E87.6 Chief Complaint r10.11 R11.2;R19.7;R10.11;N18.31;E87.6 R11.2 R19.7 R13.19 R10.11 K82.8 R63.4 Chief Complaint r10.11 R11.2;R19.7;R10.11;N18.31;E87.6 R11.2 R19.7 R13.19 R10.11 K82.8 R63.4 r10.9 r19.7 k82.8 Chief Complaint R11.2;R19.7;R10.11;N 18.31;E87.6 R11.2 R19.7 R13.19 R10.11 K82.8 R63.4 r10.9 r19.7 k82.8 Nausea, Vomiting, Abd Pain, Gerd, Dysphagia Chief Complaint R11.2;R19.7;R10.11;N 18.31;E87.6 R11.2 R19.7 R13.19 R10.11 K82.8 R63.4 r10.9 r19.7 k82.8 Nausea, Vomiting, Abd Pain, Gerd, Dysphagia z78.0 Chief Complaint 6 Week Follow Up Dys pepsia/Dysphgia 1 MONTH F/U - DIARRHEA 2 month follow up Reason for Visit Diarrhea Dyspepsia Dyspepsia Irritable bowel syndrome with diarrhea Reason for Referral Specialty Diagnoses / Procedures Referred By Contac t Referred To Contact Diagnoses Essential hypertension [place], [place] [address], [address] [address] Referral ID Status Reason Start Date Expiration Date V isits Requested Visits Authorized [id number] Pending Review 1 1 Specialty Diagnoses / Procedures Referred By Contac t Referred To Contact Cardiology Diagnoses Atherosclerosis of rincon coronary artery of rincon heart without angina pectoris Procedures Follow Up In Cardiology [place], [place] [address], [address] [address] [place], [address] [address] Referral ID Status Reason Start Date Expiration Date V isits Requested Visits Authorized [id number] Authorized 12/26/2023 12/25/2024 1 1 Specialty Diagnoses / Procedures Referred By Contac t Referred To Contact Gastroenterology Diagnoses Epigastric pain Dysphagia, unspecified type Jigar Klein, FIRE PREVENTION OFFICER-WORSHIP PASTOR [address] [place] [address] [facility] GASTROENTEROLOGY [address] [place] [id number] Referral ID Status Reason Start Date Expiration Date V isits Requested Visits Authorized [id number] Authorized 12/21/2023 12/20/2024 3 3 Scheduling Instructions Please call the Gastroenterology Clinic at to schedule an appointment if one was not made for you today. Question Answer Reason for Referral: Swallowing Difficulty [20] Which GI clinic should the patient be scheduled in? General GI Clinic Comments No prior visits in Gastroenterology Specialty Diagnoses / Procedures Referred By Claudia iverson Referred To Contact Diagnoses Chronic obstructive pulmonary disease, unspecified COPD type ([facility]) Adeline Carlton, DO [address] [facility] [place] [address] Referral ID Status Reason Start Date Expiration Date V isits Requested Visits Authorized [id number] Pending Review 1 1 Additional Source Comments INFORMATION SOURCE (unrecogn ized section and content) DATE CREATED AUTHOR 02/20/2018 [facility] DATE CREATED AUTHOR AUTHOR'S ORGANIZ ATION 06/16/2020 [facility] DATE CREATED AUTHOR AUTHOR'S ORGANIZ ATION 04/22/2022 [facility] DATE CREATED AUTHOR AUTHOR'S ORGANIZ ATION 05/31/2022 [facility] dical Specialist DATE CREATED AUTHOR AUTHOR'S ORGANIZ ATION 04/28/2023 [facility] DATE CREATED AUTHOR AUTHOR'S ORGANIZ ATION 04/28/2023 [facility] DATE CREATED AUTHOR AUTHOR'S ORGANIZ ATION 2023 [facility] DATE CREATED AUTHOR AUTHOR'S ORGANIZ ATION 12/28/2023 [facility] DATE CREATED AUTHOR AUTHOR'S ORGANIZ ATION 02/10/2024 [facility] dical Specialists EPIC REASON FOR VISIT (unrecogniz ed section and content) Reason Comments Follow-up 8w Reason Comments COPD 3 month follow up Reason Comments Follow-up 6 month Specialty Diagnoses / Procedures Referred By Claudia iverson Referred To Contact Cardiology Diagnoses Chronic obstructive pulmonary disease, unspecified COPD type (Multi) Atherosclerosis of rincon coronary artery of rincon heart without angina pectoris Essential hypertension Mixed hyperlipidemia PVD (peripheral vascular disease) ([facility]) Procedures Follow Up In Cardiology Danya Newsome, FIRE PREVENTION OFFICER-WORSHIP PASTOR [address] [facility], [address] [address] [place], DO [address] [facility], [address] [place] [address] Referral ID Status Reason Start Date Expiration Date V isits Requested Visits Authorized [id number] Authorized 06/26/2023 06/25/2024 1 1 Care Teams (unrecognized sec tion and content) Team Status: Inactive Member Role Status Dates [facility] Primary Care Provider Active Adal Paris DO Attending Provider Active Team Status: Active Member Role Status Dates [facility] Primary Care Provider Active Team Status: Inactive Member Role Status Dates [facility] Primary Care Provider Active Anderson Espino MD Attending Provider Active Team Status: Inactive Member Role Status Dates [facility] Primary Care Provider Active Adeline Carlton DO Attending Provider Active King Olea MD Referring Provider Active Team Status: Inactive Member Role Status Dates [facility] Primary Care Provider Active Glen Akins PA-C Emergency Provider Active Team Status: Inactive Member Role Status Dates [facility] Primary Care Provider Active Earnest Holder DO Emergency Provider Active Team Status: Active Member Role Status Dates Maria Teresa Rojo CAFETERIA TABLE ATTENDANT-C Primary Care Prov ider Active Team Status: Inactive Member Role Status Dates [facility] Primary Care Provider Active JODY Roth Attending Provider Active Team Status: Inactive Member Role Status Dates Maria Teresa Rojo CAFETERIA TABLE ATTENDANT-C Lisa juan Care Provider, Attending Provider Active Sg Barroso MD Referring Provider Active Home Aid Relationship Specialty Start Date End Date Maria Teresa Rojo APRN-WORSHIP PASTOR [address] [place] [id number] PCP - General Family Medicine 06/26/23 Team Status: Inactive Member Role Status Dates Maria Teresa Rojo CAFETERIA TABLE ATTENDANT-C Lisa juan Care Provider, Attending Provider Active Team Status: Inactive Member Role Status Dates Maria Teresa Rojo NP-C Primary Care Prov ider Active Jigar Klein APRN Attending Provider Active Team Status: Inactive Member Role Status Dates Maria Teresa Rojo NP-C Primary Care Prov ider Active Anderson Espino MD Attending Provider Active Home Aid Relationship Specialty Start Date End Date Maria Teresa Rojo PA-C [address] [place] [address] [address] [place] [address] PCP - General 10/05/23 Home Aid Relationship Specialty Start Date End Date Maria Teresa Rojo PA-C [address] [place] [address] [address] [place] [address] PCP - General 10/05/23 10/05/23 Maria Teresa Rojo MD [address] [place] [address] Referring Physician Nurse Practitioner 10/05/23 Home Aid Relationship Specialty Start Date End Date Maria Teresa Rojo MD [address] [address] Referring Physician Nurse Practitioner 10/05/23 Team Status: Inactive Member Role Status Dates Jigar Klein APRN Attending Provider Active Start: September 20, 2023 End: September 20, 2023 Team Status: Inactive Member Role Status Dates Maria Teresa renae NP-Daily Primary Care Provider Active Start: October 242023 End: October 24, 2023 Jigar Klein APRN Attending Provider Active Start: October 24, 2023 End: October 24, 2023 Team Status: Inactive Member Role Status Dates Maria Teresa renae CAFETERIA TABLE ATTENDANT-C Primary Care Provider Active Start: December 18, 2023 End: December 18, 2023 Jigar Klein APRN Attending Provider Active Start: December 18, 2023 End: December 18, 2023 Home Aid Relationship Specialty Start Date End Date Maria Teresa Rojo APRN-WORSHIP PASTOR PCP - General Family Medicine 06/26/23 Goals (unrecognized section and content) Goals may be documented in a n alternate section FOR RECORDS PERTAINING TO PATIENTS WHO ARE OR HAVE BEEN ENROLLED IN A CHEMICAL DEPENDENCY/SUBSTANCEABUSE PROGRAM, SOME INFORMATION MAY BE OMITTED. This clinical summary was aggregated from multiple sources. Caution should be exercised in using it in the provision of clinical care. This summary normalizes information from multiple sources, and as a consequence, information in this document may materially change the coding, format and clinical context of patient data. In addition, data may be omitted in some cases. CLINICAL DECISIONS SHOULD BE BASED ON THE PRIMARY CLINICAL RECORDS. [employer] [facility]. provides no warranty or guarantee of the accuracy or completeness of information in this document.
--- NOTE | 2024-02-27 22:55 | ED.GENADUL1 ---
HPI HPI - General Adult General Chief complaint: Nausea/Vomiting/Diarrhea Stated complaint: Nausea/Vomiting Time Seen by Provider: 02/27/24 22:34 Source: patient Mode of arrival: Wheelchair Limitations: no limitations History of Present Illness HPI narrative: This 58-year-old female who had an ultrasound at [facility] 3 to 4 months ago that showed gallbladder sludge presents for evaluation of nausea vomiting and right upper quadrant abdominal pain. She has chronic diarrhea which is unchanged. She has not had a fever or chills. She has not seen a surgeon in follow-up after having the ultrasound done. She states that she had 3 pretzel sticks earlier today prior to becoming sick. She has not had a fever. She denies any urinary symptoms. Related Data Home Medications ?Medication ?Instructions ?Recorded ?Confirmed albuterol sulfate 2.5 mg/3 mL 2.5 mg continuous nebulization Q6H 02/11/24 02/11/24 (0.083 %) solution for nebulization PRN shortness of breath or wheezing albuterol sulfate 90 mcg/actuation inhalation 02/11/24 aerosol inhaler (Ventolin HFA) alendronate 70 mg tablet 70 mg PO .weekly 02/11/24 02/11/24 amlodipine 10 mg tablet 10 mg PO DAILY 02/11/24 02/11/24 atorvastatin 80 mg tablet 80 mg PO DAILY 02/11/24 02/11/24 azithromycin 250 mg tablet 250 mg PO DAILY 02/11/24 02/11/24 budesonide-formoterol HFA 160 2 inh inhalation Q12H 02/11/24 02/11/24 mcg-4.5 mcg/actuation aerosol inhaler clopidogrel 75 mg tablet 75 mg PO DAILY 02/11/24 02/11/24 famotidine 20 mg tablet 20 mg PO Q12H 02/11/24 02/11/24 gabapentin 100 mg capsule 100 mg PO DAILY 02/11/24 02/11/24 lisinopril 5 mg tablet 5 mg PO DAILY 02/11/24 02/11/24 metoprolol tartrate 25 mg tablet 12.5 mg PO Q12H 02/11/24 02/11/24 roflumilast 500 mcg tablet 500 mcg PO DAILY 02/11/24 02/11/24 spironolactone 25 mg tablet 25 mg PO Q12H 02/11/24 02/11/24 tiotropium bromide 2.5 2 inh inhalation Q24H 02/11/24 02/11/24 mcg/actuation mist for inhalation (Spiriva Respimat) Previous Rx's ?Medication ?Instructions ?Recorded penicillin V potassium 500 mg 500 mg PO QID 7 days #28 tabs 02/11/24 tablet Allergies Allergy/AdvReac Type Severity Reaction Status Date / Time hydrocodone [From Vicodin] Allergy Intermediate Vomiting Verified 02/27/24 22:14 cephalexin [From Keflex] Allergy Mild Vomiting Verified 02/27/24 22:14 sumatriptan [From Imitrex] Allergy Mild Hives Verified 02/27/24 22:14 acetaminophen AdvReac Intermediate Vomiting Verified 02/27/24 22:14 [From Darvocet-N] Opioid HPI Opioid Management Most Recent Opioid Data: Last Pain Scale 10 02/27/24 23:07 Review of Systems ROS Status of ROS 10 or more systems reviewed and unremarkable except as noted in history and below [facility] Medical History (Updated 02/27/24 @ 23:53 by Ivy Johnson MD) Hypertension ?I10 - Essential (primary) hypertension (ICD-10) Heart attack ?I21.9 - Acute myocardial infarction, unspecified (ICD-10) Exam Narrative Exam Narrative: Vital signs and Nursing Notes reviewed: Patient is afebrile with a normal pulse, blood pressure is elevated at 164/85, she is not hypoxic with pulse ox 99% on room air General: Alert, uncomfortable appearing middle-aged female, no respiratory distress, no active vomiting, she is rocking back and forth on the stretcher and crying HEENT: Normocephalic atraumatic, mucous membranes are moist and pink, eyes are clear, normal conjunctiva, vision is grossly intact, multiple severe decayed and decaying teeth Neck: Supple, no meningeal signs, no anterior or posterior cervical lymphadenopathy Chest: Lungs are clear to auscultation with good air entry, there is no wheezing rhonchi or rales appreciated no accessory muscle use, patient is speaking in complete sentences-no chest wall tenderness to palpation CVS: Regular rate and rhythm S1-S2, no murmurs rubs or gallops, pulses are brisk and equal bilaterally ABD: Soft, flat, nondistended, tenderness in the right upper quadrant, no pulsatile masses appreciated, positive Vallecillo sign, remainder of the abdominal exam is benign Extremities: Moving all extremities, no lower extremity tenderness or swelling noted, negative Homans' sign, pulses are brisk and equal bilaterally Skin: Normal in appearance without rash,pallor, petechiae or purpura Neuro: No focal deficits Constitutional Vital Signs, click to edit/add: Last Vital Signs Temp 98.2 F 02/27/24 22:09 Pulse 88 02/27/24 22:09 Resp 22 H 02/27/24 22:09 BP 164/85 H 02/27/24 22:09 Pulse Ox 99 02/27/24 22:09 O2 Del Method Room Air 02/27/24 22:09 Course Vital Signs Vital signs: Vital Signs Temperature 98.2 F 02/27/24 22:09 Pulse Rate 88 02/27/24 22:09 Respiratory Rate 22 H 02/27/24 22:09 Blood Pressure 164/85 H 02/27/24 22:09 Pulse Oximetry 99 02/27/24 22:09 Oxygen Delivery Method Room Air 02/27/24 22:09 Temperature 98.2 F 02/27/24 22:09 Pulse Rate 88 02/27/24 22:09 Respiratory Rate 22 H 02/27/24 22:09 Blood Pressure 164/85 H 02/27/24 22:09 Pulse Oximetry 99 02/27/24 22:09 Oxygen Delivery Method Room Air 02/27/24 22:09 Medical Decision Making MDM Narrative Medical decision making narrative: This 58-year-old female who has been diagnosed with gallbladder sludge after having an ultrasound of the right upper quadrant in the past several months but has not followed up with general surgery but has a client advisor in [place] presents for evaluation of nausea, vomiting and right upper quadrant abdominal pain. She had 3 episodes of vomiting earlier in the day and upon arrival was only nauseated. She has not had a fever. She has no chest pain or shortness of breath. She was uncomfortable appearing on arrival and was medicated with IV fluids, IV Toradol, IV Zofran and on reevaluation is feeling better. She has a normal white count and hemoglobin. Electrolytes are normal with the exception of an elevated creatinine at 1.66. I do not have any prior labs for comparison purposes. On reevaluation she is feeling better and will be discharged home. Her daughter requests a prescription for Protonix because she feels that that helps her gallbladder. She will be discharged home with a short course of [place], Zofran and Protonix at her daughter's request. She was encouraged to follow-up closely with her family physician and request referral to a general surgeon for further evaluation and definitive treatment of her gallbladder problem. Lab Data Labs: Lab Results 02/27/24 Range/Units 22:31 WBC 7.2 (4.0-11.0) 10^3/uL RBC 3.62 L (4.20-5.40) 10^6/uL Hgb 11.4 L (12.0-16.0) g/dL Hct 35.9 L (36.0-48.0) % MCV 99.2 H (81.0-99.0) fL MCH 31.5 (26.7-34.0) pg MCHC 31.8 (29.9-35.2) g/dL RDW 13.6 (11.0-15.0) % Plt Count 286 (150-450) 10^3/uL MPV 10.6 (9.5-13.5) fL Neut % (Auto) 61.3 (43.0-75.0) % Lymph % (Auto) 28.5 (20.5-60.0) % [place] % (Auto) 8.0 (1.7-12.0) % Eos % (Auto) 0.8 L (0.9-7.0) % Baso % (Auto) 1.0 (0.2-2.0) % Neut # (Auto) 4.4 (1.4-6.5) 10^3/uL Lymph # (Auto) 2.0 (1.2-3.8) 10^3/uL [place] # (Auto) 0.6 (0.3-0.8) 10^3/uL Eos # (Auto) 0.1 (0.0-0.7) 10^3/uL Baso # (Auto) 0.1 (0.0-0.1) 10^3/uL Abs Immat Gran (auto) 0.03 (0.00-0.03) 10^3/uL Imm/Tot Granulo (auto) 0.4 (0.0-0.5) % Sodium 139 (136-145) mmol/L Potassium 3.3 L (3.5-5.1) mmol/L Chloride 107 (98-107) mmol/L Carbon Dioxide 20.3 L (21.0-32.0) mmol/L Anion Gap 15.0 BUN 9.0 (7.0-18.0) mg/dL Creatinine 1.66 H (0.55-1.02) mg/dL Est GFR ( Amer) 38 L (>=60) Est GFR (Non-Af Amer) 32 L (>=60) BUN/Creatinine Ratio 5.4 Glucose 95 (74-106) mg/dL Calcium 8.9 (8.5-10.1) mg/dL Total Bilirubin 0.4 (0.2-1.0) mg/dL AST 11 L (15-37) U/L ALT 15 (14-59) U/L Alkaline Phosphatase 108 (46-116) U/L Total Protein 6.5 (6.4-8.2) g/dL Albumin 3.4 (3.4-5.0) g/dL Globulin 3.1 g/dL Albumin/Globulin Ratio 1.1 Lipase 68.0 (16.0-77.0) U/L Discharge Plan Discharge Stand Alone Forms: Portal Instructions Chief Complaint: Nausea/Vomiting/Diarrhea Clinical Impression: Biliary colic Patient Disposition: Home, Self-Care Time of Disposition Decision: 23:53 Condition: Good Prescriptions / Home Meds: No Action albuterol sulfate 2.5 mg /3 mL (0.083 %) solution for nebulization 2.5 mg continuous nebulization Q6H PRN (Reason: shortness of breath or wheezing) albuterol sulfate [Ventolin HFA] 90 mcg/actuation HFA aerosol inhaler INHALATION alendronate 70 mg tablet 70 mg PO .weekly amlodipine 10 mg tablet 10 mg PO DAILY atorvastatin 80 mg tablet 80 mg PO DAILY azithromycin 250 mg tablet 250 mg PO DAILY budesonide-formoterol 160-4.5 mcg/actuation HFA aerosol inhaler 2 inh INHALATION Q12H clopidogrel 75 mg tablet 75 mg PO DAILY famotidine 20 mg tablet 20 mg PO Q12H gabapentin 100 mg capsule 100 mg PO DAILY lisinopril 5 mg tablet 5 mg PO DAILY metoprolol tartrate 25 mg tablet 12.5 mg PO Q12H roflumilast 500 mcg tablet 500 mcg PO DAILY spironolactone 25 mg tablet 25 mg PO Q12H penicillin V potassium 500 mg tablet 500 mg PO QID 7 Days Qty: 28 0RF Spiriva Respimat 2.5 mcg/actuation mist 2 inh INHALATION Q24H Print Language: Dutch Referrals: Maria Teresa Rojo, CREPING MACHINE OPERATOR [Primary Care Provider] - 1 week
[2024-02-27 23:03] LABS: Basophils Absolute Auto 0.1 10^3/uL (0.0-0.1); Eosinophils Absolute Auto 0.1 10^3/uL (0.0-0.7); Eosinophils Percent Auto 0.8 % (0.9-7.0); Hematocrit 35.9 % (36.0-48.0); Hemoglobin 11.4 g/dL (12.0-16.0); Immature Granulocytes Abs Auto 0.03 10^3/uL (0.00-0.03); Immature Granulocytes Pct Auto 0.4 % (0.0-0.5); Lymphocytes Percent Auto 28.5 % (20.5-60.0); Mean Corpuscular HGB Conc 31.8 g/dL (29.9-35.2); Mean Corpuscular Hemoglobin 31.5 pg (26.7-34.0); Mean Corpuscular Volume 99.2 fL (81.0-99.0); Mean Platelet Volume 10.6 fL (9.5-13.5); Monocytes Absolute Auto 0.6 10^3/uL (0.3-0.8); Neutrophils Absolute Auto 4.4 10^3/uL (1.4-6.5); Neutrophils Percent Auto 61.3 % (43.0-75.0); Platelet Count 286 10^3/uL (150-450); Red Blood Count 3.62 10^6/uL (4.20-5.40); Red Cell Distribution Width 13.6 % (11.0-15.0); White Blood Count 7.2 10^3/uL (4.0-11.0)
[2024-02-27] MEDS: ONDANSETRON PF 4 MG/2 ML VIAL IV (23:07)
[2024-02-27] MEDS: KETOROLAC TROMETHAMINE 30 MG/ML VIAL IVP (23:07)
[2024-02-27] MEDS: 0.9 % SODIUM CHLORIDE 1,000 ML 1000 ML IV (23:07)
[2024-02-27 23:17] LABS: Alanine Aminotransferase 15 U/L (14-59); Albumin Globulin Ratio 1.1; Albumin Level 3.4 g/dL (3.4-5.0); Alkaline Phosphatase 108 U/L (46-116); Aspartate Amino Transferase 11 U/L (15-37); BUN Creatinine Ratio 5.4; Bilirubin Total 0.4 mg/dL (0.2-1.0); Calcium 8.9 mg/dL (8.5-10.1); Carbon Dioxide 20.3 mmol/L (21.0-32.0); Chloride 107 mmol/L (98-107); Estimated GFR (African America 38 (>=60); Estimated GFR (Non-African Ame 32 (>=60); Globulin 3.1 g/dL; Glucose 95 mg/dL (74-106); Potassium 3.3 mmol/L (3.5-5.1); Sodium 139 mmol/L (136-145); Total Protein 6.5 g/dL (6.4-8.2)
[2024-02-28] VITALS: BP 145/87; PULSE 79; O2SAT 97
== END 2024-02-28 | disposition home or self-care (01) ==
PROVIDERS: Emergency Provider Emergency Medicine; PCP Nurse Practitioner Family
DX: K80.50 Calculus of bile duct without cholangitis or cholecystitis without obstruction (principal)
CPT/HCPCS: 36415; 80053; 83690; 85025; 96361; 96374; 96375; 99284; J1885; J2405